=== PATIENT | male | born 1965 | race Hispanic/Latino ===

== ENCOUNTER 2020-05-20 19:13 | Inpatient (IN) | payer OTHER ==
[2020-05-20 20:29] LABS: #Eosinphils 0.1 thou/uL (0.0-0.7); #Lymphocytes 0.7 thou/uL (1.20-3.40); #Monocytes 0.3 thou/uL (0.11-0.59); #Neutrophils 2.5 thou/uL (1.40-6.50); %Basophils 0.2 % (0.0-1.0); %Lymphocytes 20.2 % (21.0-51.0); %Monocytes 7.4 % (0.0-10.0); %Neutrophils 68.2 % (42.0-75.0); Hemoglobin 9.6 g/dL (14.0-18.0); Mean Corpuscular HGB CONC 33.5 g/dL (32.0-36.0); Mean Corpuscular Hemoglobin 32.5 pg (27.0-31.0); Platelet Count 112 thou/uL (130-400); RBC Distribution Width 12.4 % (11.5-14.5); Red Blood Cell (RBC) Count 2.95 mill/uL (4.70-6.10); White Blood Cell (WBC) Count 3.7 thou/uL (4.8-10.8)
[2020-05-20 20:47] LABS: Platelet Morphology Comment Appears Decreased
[2020-05-20 21:03] LABS: ALT (SGPT) 16 U/L (8-55); AST (SGOT) 19 U/L (5-34); Albumin 3.3 g/dL (3.5-5.0); Alcohol Less than 10 mg/dL (Less than 10); Alkaline Phosphatase 75 U/L (40-110); Anion Gap 21 mmol/L (10-20); BUN (Urea Nitrogen) 84 mg/dL (8.4-25.7); Bilirubin, Total 0.6 mg/dL (0.2-1.2); Calc. Creatinine Clearance 0 mL/min (70-130); Calcium 8.4 mg/dL (7.8-10.44); Carbon Dioxide 19 mmol/L (22-29); Chloride 97 mmol/L (98-107); Estimated GFR-MDRD 3; Globulin 3.1 g/dL (2.4-3.5); Glucose 70 mg/dL (70-105); Protein, Total 6.4 g/dL (6.0-8.3); Sodium 130 mmol/L (136-145)
--- NOTE | 2020-05-20 21:18 | RAD ---
PORTABLE CHEST: History: Seizure FINDINGS: Heart size and mediastinum within normal limits. Lungs appear clear of any infiltrative process. No s ignificant bony findings. IMPRESSION: No active intrathoracic disease. POS: OFF
[2020-05-20 21:23] LABS: CKMB 8.3 ng/mL (0-6.6)
[2020-05-20] MEDS ORDERED: Dextrose 50% Abboject 50 ML SYRINGE ONE ×3 (21:23→23:27)
[2020-05-20] MEDS ORDERED: Sodium Bicarb 50 MEQ/50 ML VIAL ONE (21:23)
[2020-05-20] MEDS ORDERED: Calcium Chloride 1 GM/10 ML Abboject SYRINGE ONE (21:23)
--- NOTE | 2020-05-20 21:23 | CT ---
CT OF BRAIN PERFORMED WITHOUT CONTRAST ENHANCEMENT: History: Seizure Comparison: 01-22-2009 FINDINGS: There is generalized ventricular and sulcal prominence. Decreased attenuation of the periventricular white matter is consistent with come chronic white matter change. There are no signs of intracerebral hemorrhage or extraaxial fluid collections. Mastoid air cells and visualized sinuses are clear. IMPRESSION: No acute intracranial abnormalities. POS: OFF
[2020-05-20] MEDS ORDERED: Insulin Regular 300 UNITS/3 ML VIAL ONE (21:47)
[2020-05-20] MEDS ORDERED: Acetaminophen 325 MG TAB PO PRN (22:12)
--- NOTE | 2020-05-20 22:38 | PDOC.EVN ---
Event Note - Event Note Event Note: [id number]
[2020-05-20 23:50] LABS: HBSAg Index 0.14 S/CO (0-0.99); Hep B Surf Ag Non-Reactive S/CO (NonReactive)
[2020-05-21 00:04] LABS: Troponin I 0.057 ng/mL (< 0.028)
[2020-05-21 00:14] VITALS: BMI 26.3
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
[2020-05-21] MEDS ORDERED: hydrALAZINE 20 MG/ML VIAL SLOW IVP SCH (05:15)
[2020-05-21 07:47] LABS: #Eosinphils 0.1 thou/uL (0.0-0.7); #Lymphocytes 0.8 thou/uL (1.20-3.40); #Monocytes 0.5 thou/uL (0.11-0.59); #Neutrophils 2.7 thou/uL (1.40-6.50); %Basophils 0.3 % (0.0-1.0); %Eosinophils 2.8 % (0.0-10.0); %Lymphocytes 18.6 % (21.0-51.0); %Monocytes 11.1 % (0.0-10.0); %Neutrophils 67.2 % (42.0-75.0); Hemoglobin 10.5 g/dL (14.0-18.0); Mean Corpuscular Hemoglobin 32.9 pg (27.0-31.0); Mean Corpuscular Volume 96.8 fL (78.0-98.0); Mean Platelet Volume 6.8 fL (7.4-10.4); Platelet Count 130 thou/uL (130-400); RBC Distribution Width 12.5 % (11.5-14.5); Red Blood Cell (RBC) Count 3.18 mill/uL (4.70-6.10)
[2020-05-21 08:04] LABS: Anion Gap 18 mmol/L (10-20); BUN (Urea Nitrogen) 32 mg/dL (8.4-25.7); Calc. Creatinine Clearance 10 mL/min (70-130); Calcium 8.9 mg/dL (7.8-10.44); Carbon Dioxide 24 mmol/L (22-29); Chloride 100 mmol/L (98-107); Estimated GFR-MDRD 6; Glucose 73 mg/dL (70-105); Potassium 4.8 mmol/L (3.5-5.1); Sodium 137 mmol/L (136-145)
[2020-05-21] MEDS ORDERED: ALPRAZolam 1 MG TAB PO PRN (08:44)
[2020-05-21] MEDS ORDERED: hydrOXYzine 25 MG TAB PO PRN (08:44)
[2020-05-21] MEDS ORDERED: cloNIDine 0.2 MG TAB PO PRN (08:44)
[2020-05-21] MEDS: Carvedilol 25 MG TAB PO SCH ×2 (09:30→21:29)
[2020-05-21] MEDS: Lisinopril 10 MG TAB PO SCH (09:30)
[2020-05-21 11:43] LABS: SARS-CoV-2 MS2 Positive; SARS-CoV-2 N Gene Negative; SARS-CoV-2 S Gene Negative; SARS-CoV-2 by NAA Not Detected (NotDetected); SARS-CoV-2 orf1ab Negative
--- NOTE | 2020-05-21 11:59 | PRG ---
DATE OF SERVICE: 05/21/2020 SUBJECTIVE: A 54-year-old gentleman, being seen for end-stage renal disease. The patient denied nausea, vomiting, or chest pain. PHYSICAL EXAMINATION: GENERAL: The patient is awake and alert. VITAL SIGNS: Afebrile, pulse , breathing at 16, blood pressure 153/91. HEENT: Head normocephalic and atraumatic. Eyes intact, no ulcers. Nose intact, no ulcers. Ears intact, no ulcers. NECK: Supple. No JVD. CHEST: Symmetrical and clear. CARDIOVASCULAR: Shows S1 and S2, no rub, no murmur. GASTROINTESTINAL: Abdomen is soft, bowel sounds positive. EXTREMITIES: Show no edema or ulcers. SKIN: Shows no rash or petechiae. MUSCULOSKELETAL: Shows no joint swelling or stiffness. GENITOURINARY: Shows no [place] or CVA tenderness. NEUROLOGIC: Motor intact. Cranial nerves intact. LABORATORY DATA: Hemoglobin 10.5. ASSESSMENT AND PLAN: 1. Stage 6 chronic kidney disease, stable. 2. Hypertension, stable. 3. Anemia, stable. Medication based on GFR appropriate. Job ID: [id number]
[2020-05-21] MEDS ORDERED: hydrALAZINE 25 MG TAB PO SCH (15:45)
--- NOTE | 2020-05-21 16:03 | PDOC.HOSPP ---
- Subjective Encounter Date: 05/21/20 Encounter Time: 16:02 Subjective: Patient seen for follow-up regarding hypertensive urgency. He denies chest pain or shortness of breath. He reports feeling better. - Objective Vital Signs & Weight: Vital Signs (12 hours) Temp Pulse BP 05/21/20 15:59 171/122 H 05/21/20 15:00 97.0 F L 05/21/20 11:00 97.5 F L 05/21/20 09:30 153/91 H 05/21/20 07:39 97.0 F L 05/21/20 05:45 75 164/105 H Weight Weight 168 lb Most Recent Monitor Data Heart Rate from ECG 71 NIBP 171/122 NIBP BP-Mean 138 Respiration from ECG 10 SpO2 100 Result Diagrams: 05/21/20 07:32 05/21/20 07:32 Additional Labs: Accuchecks 05/21/20 05/21/20 05/21/20 15:39 04:16 03:15 POC Glucose 108 127 H 131 H 05/21/20 05/21/20 05/20/20 02:19 01:16 21:40 POC Glucose 100 44 L* 159 H 05/20/20 19:29 POC Glucose 72 I reviewed patient's labs and MAR EKG Reviewed by me: Yes (Telemetry-NSR) Hospitalist ROS - Review of Systems Cardiovascular: denies: chest pain, palpitations, orthopnea, paroxysmal noc. dyspnea, edema, light headedness Gastrointestinal: denies: nausea, vomiting, abdominal pain, diarrhea, constipation, melena, hematochezia - Medication Medications: Active Medications Generic Name Dose Route Start Last Admin Trade Name Mendoza PRN Reason Stop Dose Admin Acetaminophen 650 mg 05/20/20 22:12 05/21/20 09:37 Tylenol PO 650 mg Q4H PRN Administration Headache/Fever/Mild Pain (1-3) Carvedilol 25 mg 05/21/20 09:00 05/21/20 09:30 Coreg PO 25 mg BID DONTE Administration Hydralazine HCl 50 mg 05/21/20 15:45 05/21/20 15:59 Apresoline PO 05/21/20 17:45 50 mg NOW DONTE Administration Lisinopril 20 mg 05/21/20 09:00 05/21/20 09:30 Zestril PO 20 mg DAILY DONTE Administration - Exam General Appearance: awake alert Eye: anicteric sclera ENT: moist mucosa Neck: supple Heart: RRR Respiratory: CTAB Gastrointestinal: soft, non-tender Extremities: no cyanosis Skin: no rashes Musculoskeletal: no muscle wasting Psychiatric: normal affect, normal behavior Hosp A/P (1) Hypertensive urgency Code(s): I16.0 - HYPERTENSIVE URGENCY Status: Acute (2) End-stage renal disease on hemodialysis Code(s): N18.6 - END STAGE RENAL DISEASE; Z99.2 - DEPENDENCE ON RENAL DIALYSIS Status: Chronic (3) Hyperkalemia Code(s): E87.5 - HYPERKALEMIA Status: Resolved - Plan Patient improved after dialysis yesterday. Potassium is normal today. Humidifier Maintenance Worker plans for repeat dialysis tomorrow. Patient's home medications have been resumed. One-time dose of hydralazine 50 mg p.o. for now, monitor vital signs and titrate antihypertensives as needed. Likely home in 24 to 48 hours.
[2020-05-21] MEDS ORDERED: Amitriptyline HCl 100 MG TAB PO SCH (21:00)
[2020-05-22 07:33] VITALS: BP 158/84; TEMP 98
[2020-05-22] MEDS: Lisinopril 10 MG TAB PO SCH (08:31)
[2020-05-22] MEDS: Carvedilol 25 MG TAB PO SCH (08:31)
--- NOTE | 2020-05-22 11:05 | PRG ---
DATE OF SERVICE: 05/22/2020 SUBJECTIVE: This is a 54-year-old male, being seen for end-stage renal disease. The patient denies any nausea, vomiting, or chest pain. OBJECTIVE: General: The patient is awake and alert. Vital Signs: Afebrile, pulse 58, breathing at 16, blood pressure 131/76. HEENT: Head normocephalic and atraumatic. Eyes intact, no ulcers. Nose intact, no ulcers. Ears intact, no ulcers. Neck: Supple. No JVD. Chest: Symmetrical and clear. Cardiovascular: Shows S1 and S2, no rub, no murmur. Gastrointestinal: Abdomen is soft, bowel sounds positive. Extremities: Show no edema or ulcers. Skin: Shows no rash or petechiae. Musculoskeletal: Shows no joint swelling or stiffness. Genitourinary: Shows no [place] or CVA tenderness. Neurologic: Motor intact. Cranial nerves intact. LABORATORY DATA: Hemoglobin 10.5, creatinine 8.8. ASSESSMENT AND PLAN: 1. Stage 6 chronic kidney disease, plan dialysis, Thursday, Thursday, Thursday. 2. Hypertension, stable. 3. Anemia, stable. 4. Medication based on GFR appropriate. The patient will follow up for dialysis tomorrow. Job ID: [id number]
--- NOTE | 2020-05-22 16:26 | EKG ---
Test Reason : WEAKNESS Blood Pressure : / mmHG Vent. Rate : 068 BPM Atrial Rate : 068 BPM P-R Int : 216 ms QRS Dur : 104 ms QT Int : 432 ms P-R-T Axes : 035 -20 057 degrees QTc Int : 459 ms Sinus rhythm with 1st degree A-V block Otherwise normal ECG Confirmed by BAR WILLIAMSON ([id number]), social media editor JAY COOK ([id number]) on 05/22/2020 4:25:35 PM Referred By: Confirmed By:BAR WILLIAMSON
--- NOTE | 2020-05-23 00:44 | DIS ---
DATE OF ADMISSION: 05/20/2020 DATE OF DISCHARGE: 05/22/2020 PRIMARY CARE PROVIDER: Unknown. DISCHARGE DIAGNOSES: 1. Acute hyperkalemia. 2. End-stage renal disease, on hemodialysis. 3. Hypertensive urgency. 4. Metabolic acidosis. 5. Uremia. CONDITION OF PATIENT ON THE DAY OF DISCHARGE: Stable. I assessed Mr. Carmichael on the day of discharge. He denies any chest pain or shortness of breath. Vital signs are stable. S1 and S2 are heard, regular. Lungs are clear to auscultation bilaterally. HOSPITAL COURSE: Mr. Carmichael is a pleasant 54-year-old gentleman, who was admitted to [facility] on May 20, 2020, for metabolic acidosis and acute severe hyperkalemia. He was seen by Nephrology Service. He underwent urgent hemodialysis. He also had hypertensive urgency and received blood pressure medications to control his blood pressure. He was initially admitted to [facility] and was subsequently transferred to telemetry floor. He has been cleared for discharge. He will have dialysis again as outpatient on May 23, 2020, at [facility] at 6:00 a.m. ACTIVITY: As tolerated. DISCHARGE MEDICATIONS: No change was made to his pre-admission home medications. DIET: Renal and heart-healthy. DISCHARGE DESTINATION: Home. TIME SPENT: Total amount of time spent coordinating this discharge: Thirty-two minutes. Job ID: [id number]
== END 2020-05-22 11:31 | disposition home or self-care (01) | DRG 640 ==
LOC: ERS 19:13 → IMCU/EMU 21:56 → 2NO 05-21 19:57
PROVIDERS: ADMIT Internal Medicine; ATTEND Internal Medicine
PROC: 5A1D70Z Performance of Urinary Filtration, Intermittent, Less than 6 Hours Per Day (ICD-10-PCS; principal; 2020-05-21)
DX: E87.5 Hyperkalemia (principal); N18.6 End stage renal disease; I12.0 Hypertensive chronic kidney disease with stage 5 chronic kidney disease or end stage renal disease; Z20.828 Contact with and (suspected) exposure to other viral communicable diseases; I16.0 Hypertensive urgency; E87.2 Acidosis; E87.1 Hypo-osmolality and hyponatremia; E88.09 Other disorders of plasma-protein metabolism, not elsewhere classified; D63.1 Anemia in chronic kidney disease; E83.52 Hypercalcemia; R42 Dizziness and giddiness; Z99.2 Dependence on renal dialysis; Z90.49 Acquired absence of other specified parts of digestive tract; Z91.041 Radiographic dye allergy status; Z79.899 Other long term (current) drug therapy
CPT/HCPCS: 36415; 36416; 70450; 71045; 80048; 80053; 80307; 82553; 84484; 85025; 87340; 87635; 90935; 93005; 96374; 96375; 96376; G0257; J0360; J1815; U0003

== ENCOUNTER 2020-09-28 18:45 | Observation (INO) | payer OTHER ==
[2020-09-28 19:17] LABS: #Eosinphils 0.1 thou/uL (0.0-0.7); #Lymphocytes 0.6 thou/uL (1.20-3.40); #Monocytes 0.3 thou/uL (0.11-0.59); #Neutrophils 2.4 thou/uL (1.40-6.50); %Basophils 0.6 % (0.0-1.0); %Eosinophils 3.9 % (0.0-10.0); %Lymphocytes 16.8 % (21.0-51.0); %Monocytes 7.5 % (0.0-10.0); %Neutrophils 71.2 % (42.0-75.0); Mean Corpuscular HGB CONC 33.9 g/dL (32.0-36.0); Mean Corpuscular Hemoglobin 33.5 pg (27.0-31.0); Mean Corpuscular Volume 98.9 fL (78.0-98.0); Platelet Count 172 thou/uL (130-400); RBC Distribution Width 14.2 % (11.5-14.5); Red Blood Cell (RBC) Count 2.98 mill/uL (4.70-6.10); White Blood Cell (WBC) Count 3.3 thou/uL (4.8-10.8)
--- NOTE | 2020-09-28 19:20 | CT ---
CT BRAIN WITHOUT CONTRAST: HISTORY:Altered mental status. Patient had dialysis today COMPARISON:05/20/2020 FINDINGS: Changes of cortical atrophy are again seen. There are foci of decreased attenuation in the periventri cular white matter, consistent with chronic small vessel ischemic disease. There is an old lacunar infarction in the right side of the katherin. No evidence of acute infarct, hemorrhage, midline shift or abnormal extra-axial fluid collections is seen. The ventricular size is appropriate and the basilar cisterns are patent. The bony calvarium is intact. The visualized paranasal sinuses and mastoid air cells are well aerated. IMPRESSION: No CT evidence of acute intracranial process.
--- NOTE | 2020-09-28 19:40 | RAD ---
PORTABLE CHEST ONE VIEW: 09/28/20 at 7:16 p.m. HISTORY: Altered mental status. COMPARISON: 05/20/20. FINDINGS: The heart size is normal. The lungs are well expanded without lobar consolidation, pneumothoraces, or pleural effusions. IMPRESSION: No acute process. POS: OFF
[2020-09-28 19:42] LABS: Anion Gap 17 mmol/L (10-20); BUN (Urea Nitrogen) 18 mg/dL (8.4-25.7); Carbon Dioxide 32 mmol/L (22-29); Chloride 96 mmol/L (98-107); Potassium 4.4 mmol/L (3.5-5.1); Sodium 141 mmol/L (136-145)
[2020-09-28 19:43] LABS: ALT (SGPT) 42 U/L (8-55); AST (SGOT) 28 U/L (5-34); Albumin 3.9 g/dL (3.5-5.0); Alkaline Phosphatase 123 U/L (40-110); Bilirubin, Total 0.6 mg/dL (0.2-1.2); Calc. Creatinine Clearance 0 mL/min (70-130); Calcium 9.5 mg/dL (7.8-10.44); Globulin 4.2 g/dL (2.4-3.5); Glucose 126 mg/dL (70-105); Protein, Total 8.1 g/dL (6.0-8.3)
[2020-09-28] MEDS ORDERED: Aspirin 325 MG TAB ONE (20:50)
--- NOTE | 2020-09-28 21:32 | PDOC.HHP ---
Hospitalist HPI - History of Present Illness Generalized weakness History of Present Illness: PCP: Unknown The majority of the H&P was taken from the ER record due to the patient's altered mentation. I unsuccessfully attempted to contact his sister, Ene via telephone. The patient is a 54-year-old male with a documented past medical history of end-stage renal disease (MWF), hypertension and anxiety that presents to the emergency department via EMS for the above complaint. Apparently, the patient attended his scheduled dialysis session this evening, which he completed the entire session. After the drive home from dialysis, the patient had difficulty getting out of the vehicle, primarily his legs seemed weak. He appeared confused and had difficulty speaking. EMS was called. Upon arrival, the patient was found to be hypertensive with a negative stroke scale screen. He was alert and oriented, however, he was slow to respond. The patient was brought to the hospital for further evaluation. ED Course: VITAL SIGNS ThuSep 28, 2020 18:49 YUNG Rawls Rebecca BP: 181/109, Pulse: 97, Resp: 19, Temp: 98.5 (Oral), O2 sat: 95 on (Room Air), Time: 09/28/2020 18:49. VITAL SIGNS ThuSep 28, 2020 18:54 YUNG Rawls Rebecca Pain: 2, Time: 09/28/2020 18:54. Medications: aspirin oral 325 mg Oral Given 21:00 09/28/2020 Hospitalist ROS - Review of Systems All other systems reviewed; all pertinent +/- noted in HPI/Subj - Medication Medications: enalapril maleate tablet : Strength - 20 mg : ORAL Patient Dose: 1 tab(s) Oral once a day. risperiDONE solution : Strength - 1 mg/mL : ORAL Patient Dose: 1 tab(s) Oral once a day. carvedilol tablet : Strength - 25 mg : ORAL Patient Dose: 1 tab(s) Oral 2 times a day. cloNIDine patch weekly : Strength - 0.3 mg/24 hour : TRANSDERMAL Patient Dose: 1 tab(s) Oral As Needed. amitriptyline oral tablet : Strength - 100 mg : ORAL Patient Dose: 1 tab(s) Oral once a day. Allergies: Iodine and Iodide Containing Products, Iodine and Iodide Containing Produc (Unconfirmed) Hospitalist History - Past Medical History Source: RN notes reviewed Cardiac: reports: HTN Renal/: reports: Chronic renal failure (On hemodialysis Thursday) - Past Surgical History Past Surgical History: reports: Cholecystectomy, Other (Left upper extremity fistula) - Family History Family History: reports: Other (Unable to assess due to patient's altered mental status) - Social History Smoking Status: Never smoker Alcohol: reports: None Drugs: reports: none Living Situation: With Family (Patient reports recently moving from [place] to live with a sister in [place]) Occupation: Disability Activity level: uses cane/walker - Exam General Appearance: NAD, awake alert. negative: ill appearing General - other findings: Delayed speech Eye: PERRL, anicteric sclera ENT: normocephalic atraumatic, moist mucosa Neck: supple, no lymphadenopathy, no carotid bruit Heart: RRR, no murmur, no gallops, no rubs, normal peripheral pulses Respiratory: CTAB, no wheezes, no rales, no ronchi, normal chest expansion, no tachypnea Gastrointestinal: soft, non-tender, normal bowel sounds, no guarding, no rigidity Gastrointestinal - other findings: No CVA tenderness Extremities: no cyanosis, no edema Extremities - other findings: Moves all extremities well Skin: no rashes Neurological: cranial nerve grossly intact, no focal deficits Neurological - other findings: Delayed speech, intermittent confusion, GCS E4,V4, M6 Musculoskeletal: normal tone, normal strength Psychiatric: oriented to person, oriented to place, oriented to time, flat affect Hospitalist Results - Labs Result Diagrams: 09/28/20 19:02 09/28/20 19:02 Lab results: WBC 3.3 thou/uL (4.8-10.8) L 09/28/20 19:02 Hgb 10.0 g/dL (14.0-18.0) L 09/28/20 19:02 Hct 29.5 % (42.0-52.0) L 09/28/20 19:02 MCV 98.9 fL (78.0-98.0) H 09/28/20 19:02 Plt Count 172 thou/uL (130-400) 09/28/20 19:02 Neutrophils % 71.2 % (42.0-75.0) 09/28/20 19:02 Sodium 141 mmol/L (136-145) 09/28/20 19:02 Potassium 4.4 mmol/L (3.5-5.1) 09/28/20 19:02 Chloride 96 mmol/L (98-107) L 09/28/20 19:02 Carbon Dioxide 32 mmol/L (22-29) H 09/28/20 19:02 BUN 18 mg/dL (8.4-25.7) 09/28/20 19:02 Creatinine 5.45 mg/dL (0.7-1.3) H 09/28/20 19:02 Glucose 126 mg/dL (70-105) H 09/28/20 19:02 Calcium 9.5 mg/dL (7.8-10.44) 09/28/20 19:02 Total Bilirubin 0.6 mg/dL (0.2-1.2) 09/28/20 19:02 AST 28 U/L (5-34) 09/28/20 19:02 ALT 42 U/L (8-55) 09/28/20 19:02 Alkaline Phosphatase 123 U/L (40-110) H 09/28/20 19:02 Troponin I 0.023 ng/mL (< 0.028) 09/28/20 19:05 Serum Total Protein 8.1 g/dL (6.0-8.3) 09/28/20 19:02 Albumin 3.9 g/dL (3.5-5.0) 09/28/20 19:02 - EKG Interpretation EK lead EKG shows normal sinus rhythm, Rate (beats per minute): 94, with no ectopics, Conduction normal, ST segments normal, QTc 497. - Radiology Interpretation CT scan - head Status: report reviewed by me Additional Comment: IMPRESSION: No CT evidence of acute intracranial process Chest x-ray Additional Comment: IMPRESSION: No acute process Hospitalist H&P A/P - Problem (1) AMS (altered mental status) Code(s): R41.82 - ALTERED MENTAL STATUS, UNSPECIFIED Status: Acute (2) Macrocytic anemia Code(s): D53.9 - NUTRITIONAL ANEMIA, UNSPECIFIED Status: Chronic (3) End stage renal disease on dialysis Code(s): N18.6 - END STAGE RENAL DISEASE; Z99.2 - DEPENDENCE ON RENAL DIALYSIS Status: Chronic (4) Hypertension Code(s): I10 - ESSENTIAL (PRIMARY) HYPERTENSION Status: Chronic - Plan Plan: 54/M with PMH ESRD and HTN presents for altered mental status. Admit to telemetry floor, observation status. Expected length of stay less than 2 midnights. #AMS Unclear etiology. Rule out CVA. A: No focal motor deficit, intermittent confusion (delayed speech) and irritation. MRI brain, carotid ultrasound, echocardiogram. Consult neurology and physical therapy. Continue aspirin, start high intensity statin. Check TSH, FLP, mag, UA, serum DS, UDS, B12/folate Permissive hypertension. Neurochecks. #Macrocytic anemia Presented hemoglobin 10, hematocrit 29.5 Check folate and B12. #End-stage renal disease on dialysis Scheduled Thursday and Thursday. Unknown cytopathologist. #Hypertension Presented hypertensive. Allow permissive hypertension. We will restart home medications when appropriate. SCDs for DVT prophylaxis. No GI prophylaxis. CODE STATUS is full code. Contact is his sister, Ene at [phone]. Discussed the case with attending physician, Dr. James, who agrees with plan of care.
[2020-09-28] MEDS ORDERED: Labetalol HCl 100 MG/20 ML VIAL SLOW IVP PRN (21:50)
[2020-09-28] MEDS ORDERED: hydrALAZINE 20 MG/ML VIAL SLOW IVP PRN (21:50)
[2020-09-28 23:47] VITALS: BMI 23.8
[2020-09-29 03:53] LABS: Bilirubin Negative (Negative); Blood, Urine Negative (Negative); Clarity Turbid (Clear); Glucose, Urine (Dipstick) 50 mg/dL (Negative); Ketone, Urine Negative (Negative); Leukocyte 250 Leu/uL (Negative); Nitrite Negative (Negative); Protein, Urine (Dipstick) 200 mg/dL (Neg-Trace); Specific Gravity, Urine 1.009 (1.002-1.036); Squamous Epithelial 0-3 HPF (0-3); Urobilinogen Normal mg/dL (Less than 2); WBC/HPF 21-50 HPF (0-3); pH, Urine 8.5 (5.0-9.0)
[2020-09-29 03:55] LABS: Bacteria/HPF 1+ HPF (None Seen)
[2020-09-29 04:03] LABS: Amphetamine Not Detected (NotDetected); Barbiturates Screen Not Detected (NotDetected); Benzodiazepine Screen Detected (NotDetected); Cocaine Metabolite Screen Not Detected (NotDetected); Medtox Control Line Valid? VALID (VALID); Medtox Reader # READER 4; Methadone Not Detected (NotDetected); Methamphetamine Not Detected (NotDetected); Opiate Screen Not Detected (NotDetected); Oxycodone Screen Not Detected (NotDetected); Phencyclidine (PCP) Not Detected (NotDetected); THC/Cannabinoid Screen Not Detected (NotDetected); Tricyclic Screen Detected (NotDetected)
[2020-09-29 04:16] LABS: SARS-CoV-2 PCR by NAA Not Detected (NotDetected)
[2020-09-29 06:42] LABS: Cardiac Risk 3.4 (Less than 4.5); Magnesium 1.9 mg/dL (1.6-2.6)
[2020-09-29 06:44] LABS: Acetaminophen Less than 6.0 mcg/mL (10.0-30.0); Alcohol Less than 10 mg/dL (Less than 10); Salicylate Less than 8.0 mg/dL (15.0-30.0)
--- NOTE | 2020-09-29 08:09 | ULT ---
US Carotid Doppler STANDARD History: Cerebrovascular accident Comparison: None. Findings: Real-time grayscale, color and spectral analysis of the extracranial carotid and vertebral arteries was performed. No elevated peak systolic velocities within the internal carotid arteries. Antegrade flow both verteb ral arteries. Impression: No hemodynamically significant stenosis.
[2020-09-29] MEDS: Aspirin 325 mg Enteric Coated Tablet PO SCH (08:21)
[2020-09-29] MEDS ORDERED: Prevnar 13-Val Conj/PF 0.5 ML SYRINGE IM ONE (09:00)
[2020-09-29] MEDS ORDERED: FLU VACC QS2020-21(6MOS UP)/PF 60 MCG/0.5 ML SYRINGE IM ONE (09:00)
--- NOTE | 2020-09-29 09:09 | CON ---
DATE OF CONSULTATION: 09/29/2020 CONSULTING PHYSICIAN: Hospitalist Service. IMPRESSION: Probable focal seizures. PLAN: 1. Keppra 500 mg a day orally. 2. Monitor clinical course. HISTORY OF PRESENT ILLNESS: Mr. Perry is a 54-year-old gentleman with a past history of end-stage renal disease and hypertension. He is currently on dialysis. He finished dialysis yesterday and was noted to have a change in his ability to speak. He was brought to the emergency room for evaluation. His CT of the brain showed a moderate amount of chronic white matter ischemic changes. B12 level was 292, folate was low at 4.0. His urine suggested the possibility of an infection. His COVID screen was negative. He cannot really tell me any details of about how he felt yesterday. PAST MEDICAL HISTORY: Hypertension, end-stage renal disease, anemia. ALLERGIES: IODINE. SOCIAL HISTORY: Unremarkable. MEDICATIONS: Include aspirin, Plavix, and statin. REVIEW OF SYSTEMS: Ten-system review of systems is otherwise unremarkable. PHYSICAL EXAMINATION: GENERAL: He is a well-nourished, middle-aged man, in no acute distress. VITAL SIGNS: Blood pressure 181/109, pulse 97, respirations 14, temperature 98.5. HEENT: Pupils are equal and reactive. Conjunctivae clear. Oropharynx clear. NECK: Supple. No lymphadenopathy. ABDOMEN: Soft and nontender. EXTREMITIES: No cyanosis or edema. SKIN: Clear. NEUROLOGIC: He was alert and cooperative. He would follow commands appropriately. His speech was fluent and without any dysarthria. Cranial nerves appear to be intact. 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 There was intermittent asterixis type weakness present in the upper extremities. Cerebellar showed normal [id number] and rapid alternating movements. He had intermittent right facial twitching that occurred approximately every 10 or 15 seconds. This would seem to ability to speak. Sensation was intact. Plantar responses were downgoing. Gait was not tested. DIAGNOSTIC DATA: EKG shows normal sinus rhythm. Imaging was reviewed. SUMMARY: This is a middle-aged man with fairly extensive white matter disease and what appears to be some focal myoclonic seizure activity that seems lateralized to the right side. I suspected that he might have had a more prolonged event yesterday that cause speech arrest. I have started him on Keppra and see how he responds. Job ID: [id number]
[2020-09-29] MEDS ORDERED: ALPRAZolam 1 MG TAB PO PRN (09:37)
[2020-09-29] MEDS ORDERED: Lorazepam 2 MG/ML VIAL SLOW IVP PRN (09:45)
[2020-09-29] MEDS ORDERED: levETIRAcetam 500 MG TAB PO SCH (09:45)
--- NOTE | 2020-09-29 09:45 | PDOC.HOSPP ---
- Subjective Encounter Date: 09/29/20 Encounter Time: 09:43 Subjective: Patient is a 54yr old man with ESRD who was admitted due to concern for stroke. He has this diffuse twitching body movement that I suspect could be related to extra pyramidal symptoms related to use of Risperidone. He has been seen by Neurology who suspects seizures and started him on Keppra.Will order for an EEG and follow up on MRI. - Objective Vital Signs & Weight: Vital Signs (12 hours) Temp Pulse Resp BP BP Pulse Ox 09/29/20 08:15 98.5 F 80 16 192/80 H 09/29/20 03:20 98.9 F 73 18 190/93 H 96 09/29/20 00:15 98.4 F 70 18 193/98 H 100 09/28/20 22:55 99.1 F 85 18 203/103 H 98 Weight Weight 152 lb 8 oz I&O: 09/28/20 09/29/20 09/30/20 06:59 06:59 06:59 Intake Total 50 Output Total 100 Balance -50 Result Diagrams: 09/28/20 19:02 09/28/20 19:02 Additional Labs: Accuchecks 09/28/20 20:22 POC Glucose 89 Radiology Reviewed by me: Yes EKG Reviewed by me: Yes Hospitalist ROS - Review of Systems Constitutional: reports: weakness, malaise Gastrointestinal: reports: nausea Neurological: reports: weakness - Medication Medications: Active Medications Generic Name Dose Route Start Last Admin Trade Name Freq PRN Reason Stop Dose Admin Aspirin 325 mg 09/29/20 09:00 09/29/20 08:21 Aspirin 325 Mg Enteric Coated Tablet PO 325 mg DAILY DONTE Administration - Exam General Appearance: awake alert, ill appearing Eye: PERRL, anicteric sclera ENT: normocephalic atraumatic, no oropharyngeal lesions Neck: supple, symmetric, no JVD, no thyromegaly, no lymphadenopathy Heart: RRR, no murmur, no gallops, no rubs, normal peripheral pulses Respiratory: CTAB, no wheezes, no rales, no ronchi, normal chest expansion Gastrointestinal: soft, non-tender, non-distended, normal bowel sounds Neurological: cranial nerve grossly intact, normal sensation to touch, no weakness Psychiatric: normal affect, normal behavior, A&O x 3 Hosp A/P (1) Focal seizures Status: Acute Plan: Patient with suspected seizure based on the neurologist evaluation. EEG obtained reportedly has some spikes. He has been started on Keppra renally dosed. We appreciate neurologist for the ongoing help. (2) End-stage renal disease on hemodialysis Code(s): N18.6 - END STAGE RENAL DISEASE; Z99.2 - DEPENDENCE ON RENAL DIALYSIS Status: Chronic Plan: He will continue his dialysis per immigration officer recommendation. (3) UTI (urinary tract infection) Status: Acute Qualifiers: Urinary tract infection type: acute cystitis Plan: Follow-up on urine cultures. IV antibiotics will be started. (4) Acute encephalopathy Code(s): G93.40 - ENCEPHALOPATHY, UNSPECIFIED Status: Acute Plan: Suspect secondary to seizure episodes. He is now on antiepileptic drugs. Follow for clinical improvement. - Plan old records reviewed/req, PT/OT, speech therapy, DVT proph w/heparin
--- NOTE | 2020-09-29 12:43 | MRI ---
MRI Brain WO Con History: Transient ischemic attack Comparison: CT brain prior day Findings: On the diffusion weighted imaging sequence there are no abnormal foci of diffusion restrict ion. This is confirmed on the ADC map. On the susceptibility weighted imaging sequence no abnormal foci of acute hemorrhage. Small focus of hemosiderin staining along the right periventricular white matter. No midline shift. No mass effect. Moderate periventricular and deep white matter microangiopathic john nges. [place] flow voids are maintained. Impression: Moderate chronic microangiopathic changes, somewhat advanced for age. No acute hemorrhage or infarct.
[2020-09-29] MEDS: Sevelamer Carbonate 800 MG TAB PO SCH ×2 (13:14→17:57)
[2020-09-29] MEDS: cloNIDine 0.3 MG TAB PO PRN (17:57)
[2020-09-29] MEDS: Atorvastatin Calcium 40 MG TAB PO SCH (21:12)
[2020-09-29] MEDS: Amitriptyline HCl 100 MG TAB PO SCH (21:13)
[2020-09-29] MEDS: cefTRIAXone\\ROCEPHIN 1 GM in Sodium Chloride 0.9% 100 ML IVPB SCH (21:14)
[2020-09-30] MEDS: cloNIDine 0.3 MG TAB PO PRN ×2 (01:17→22:11)
[2020-09-30 06:57] LABS: #Eosinphils 0.2 thou/uL (0.0-0.7); #Monocytes 0.4 thou/uL (0.11-0.59); #Neutrophils 2.9 thou/uL (1.40-6.50); %Basophils 0.8 % (0.0-1.0); %Eosinophils 4.1 % (0.0-10.0); %Lymphocytes 22.4 % (21.0-51.0); %Monocytes 9.3 % (0.0-10.0); %Neutrophils 63.4 % (42.0-75.0); Hemoglobin 9.8 g/dL (14.0-18.0); Mean Corpuscular HGB CONC 32.9 g/dL (32.0-36.0); Mean Corpuscular Hemoglobin 32.3 pg (27.0-31.0); Mean Platelet Volume 6.9 fL (7.4-10.4); Platelet Count 149 thou/uL (130-400); Red Blood Cell (RBC) Count 3.03 mill/uL (4.70-6.10); White Blood Cell (WBC) Count 4.6 thou/uL (4.8-10.8)
[2020-09-30 07:20] LABS: Anion Gap 17 mmol/L (10-20); BUN (Urea Nitrogen) 45 mg/dL (8.4-25.7); Calc. Creatinine Clearance 9 mL/min (70-130); Calcium 8.7 mg/dL (7.8-10.44); Carbon Dioxide 31 mmol/L (22-29); Chloride 96 mmol/L (98-107); Glucose 67 mg/dL (70-105); Potassium 6.9 mmol/L (3.5-5.1); Sodium 137 mmol/L (136-145)
[2020-09-30] MEDS: Sevelamer Carbonate 800 MG TAB PO SCH ×3 (10:17→16:55)
[2020-09-30 10:49] LABS: HBSAg Index 0.21 S/CO (0-0.99); Hep B Surf Ag Non-Reactive S/CO (NonReactive)
--- NOTE | 2020-09-30 13:32 | PDOC.HOSPP ---
- Subjective Encounter Date: 09/30/20 Encounter Time: 13:30 Subjective: Patient seen and evaluated today. He has no specific complaint. His labs shows serum potassium of 6.9. He is going to get dialyzed today and we have consulted the on-call slate trimmer. He emergently needs to be dialyzed. - Objective Vital Signs & Weight: Vital Signs (12 hours) Temp Pulse Resp BP BP BP Pulse Ox 09/30/20 08:15 97.9 F 80 18 205/10 H 98 09/30/20 06:17 178/64 H 09/30/20 05:45 66 09/30/20 04:20 66 16 193/86 H 98 Weight Weight 152 lb 8 oz I&O: 09/29/20 09/30/20 10/01/20 06:59 06:59 06:59 Intake Total 50 720 Output Total 100 Balance -50 720 Result Diagrams: 09/30/20 06:32 09/30/20 06:32 Radiology Reviewed by me: Yes EKG Reviewed by me: Yes Hospitalist ROS - Review of Systems Constitutional: reports: weakness, malaise Respiratory: reports: shortness of breath, SOB with excertion Gastrointestinal: reports: nausea Neurological: reports: weakness - Medication Medications: Active Medications Generic Name Dose Route Start Last Admin Trade Name Freq PRN Reason Stop Dose Admin Amitriptyline HCl 150 mg 09/29/20 21:00 09/29/20 21:13 Amitriptyline Hcl 100 Mg Tab PO 150 mg HS DONTE Administration Aspirin 325 mg 09/29/20 09:00 09/29/20 08:21 Aspirin 325 Mg Enteric Coated Tablet PO 325 mg DAILY DONTE Administration Atorvastatin Calcium 40 mg 09/29/20 21:00 09/29/20 21:12 Atorvastatin Calcium 40 Mg Tab PO 40 mg HS DONTE Administration Clonidine 0.3 mg 09/29/20 09:37 09/30/20 01:17 Clonidine 0.3 Mg Tab PO 0.3 mg TIDPRN PRN Administration SBP Greater Than 180 Hydralazine HCl 10 mg 09/28/20 21:50 09/30/20 05:45 Hydralazine 20 Mg/Ml Vial SLOW IVP 10 mg Q4H PRN Administration BP > 220/110 Ceftriaxone Sodium 1 gm/ 100 mls @ 200 mls/hr 09/29/20 18:00 09/29/20 21:14 Sodium Chloride IVPB 100 mls Q24HR DONTE Administration Sevelamer Carbonate 3,200 mg 09/29/20 12:00 09/30/20 10:17 Sevelamer Carbonate 800 Mg Tab PO Not Given TID-WM DONTE Sodium Chloride 10 ml 09/28/20 21:50 09/30/20 05:45 Flush - Normal Saline 10 Ml Syringe IVF 10 ml PRN PRN Administration Saline Flush - Exam General Appearance: awake alert, ill appearing Eye: PERRL, anicteric sclera ENT: normocephalic atraumatic, no oropharyngeal lesions Neck: supple, symmetric, no JVD, no thyromegaly Heart: RRR, no murmur, no gallops, no rubs, normal peripheral pulses Respiratory: CTAB, no wheezes, no rales, no ronchi, normal chest expansion Gastrointestinal: soft, non-tender, non-distended, normal bowel sounds, no palpable masses Neurological: cranial nerve grossly intact Psychiatric: normal affect, A&O x 3 Hosp A/P (1) Focal seizures Status: Acute (2) End-stage renal disease on hemodialysis Code(s): N18.6 - END STAGE RENAL DISEASE; Z99.2 - DEPENDENCE ON RENAL DIALYSIS Status: Chronic (3) UTI (urinary tract infection) Status: Acute Qualifiers: Urinary tract infection type: acute cystitis (4) Acute encephalopathy Code(s): G93.40 - ENCEPHALOPATHY, UNSPECIFIED Status: Acute (5) Hyperkalemia Code(s): E87.5 - HYPERKALEMIA Status: Acute Plan: He needs to be emergently dialyzed. We have consulted on-call slate trimmer. - Plan old records reviewed/req, PT/OT
[2020-09-30] MEDS: Clopidogrel Bisulfate 75 MG TAB PO SCH (13:41)
[2020-09-30] MEDS: Aspirin 325 mg Enteric Coated Tablet PO SCH (13:41)
[2020-09-30] MEDS: levETIRAcetam 500 MG TAB PO SCH (13:42)
--- NOTE | 2020-09-30 14:58 | CON ---
DATE OF CONSULTATION: 09/30/2020 Mr. Steele reports that the twitching has resolved since I saw him yesterday. His EEG showed a spike focus on the left. He appears to be tolerating the Keppra well. He is alert and appropriate today. There is no twitching or focal deficits present. I would continue Keppra 500 mg a day. I also follow up with him in the office. Job ID: [id number]
[2020-09-30] MEDS: cefTRIAXone\\ROCEPHIN 1 GM in Sodium Chloride 0.9% 100 ML IVPB SCH (16:55)
[2020-09-30] MEDS ORDERED: HYDROcodone/Acetaminophen 5/325 mg Tablet PO PRN (17:14)
--- NOTE | 2020-09-30 18:02 | CON ---
DATE OF CONSULTATION: REASON FOR CONSULTATION: Hyperkalemia. HISTORY OF PRESENT ILLNESS: This is a very pleasant gentleman, who presented to the hospital with generalized weakness. The patient was noted to have a potassium of 6.9. So, I was consulted. The patient denies any nausea, vomiting, or chest pain at this time. PAST MEDICAL HISTORY: Significant for hypertension, hemodialysis, AV fistula, tunneled dialysis catheter, cholecystectomy. SOCIOECONOMIC HISTORY: No alcohol or drug use. FAMILY HISTORY: Negative for ESRD. ALLERGIES: REVIEWED. HOME MEDICATIONS: List reviewed. HOSPITAL MEDICATIONS: List reviewed. REVIEW OF SYSTEMS: A 15-point review of system was performed, negative except for positives noted above. HEENT: Eyes intact, no diplopia. Ears: No hearing loss or earache. Nose: No discharge or bleeding. Chest: No cough or phlegm. Abdomen: No nausea or vomiting. Genitourinary: No hematuria. No [place] catheter. Musculoskeletal: No low back pain. No joint swelling or pain. Neurological: No syncope. No seizures. Skin: No complaints of rash or itching. Psychiatric: No depression. Constitutional: No weight loss or loss of appetite. PHYSICAL EXAMINATION: General: The patient is awake and alert. Vital Signs: Afebrile, pulse 75, breathing at 16, blood pressure 168/89. HEENT: Head normocephalic and atraumatic. Eyes intact, no ulcers. Nose intact, no ulcers. Ears intact, no ulcers. Neck: Supple. No JVD. Chest: Symmetrical and clear. Cardiovascular: Shows S1 and S2, no rub, no murmur. Gastrointestinal: Abdomen is soft, bowel sounds positive. Extremities: Show no edema or ulcers. Skin: Shows no rash or petechiae. Musculoskeletal: Shows no joint swelling or stiffness. Genitourinary: Shows no [place] or CVA tenderness. Neurologic: Motor intact. Cranial nerves intact. LABORATORY DATA: Reviewed. ASSESSMENT AND PLAN: 1. Stage 6 chronic kidney disease, plan urgent dialysis. 2. Hypertension. We would recommend starting a calcium channel darian. The patient takes clonidine at home and consider adding a beta-darian. The patient is noncompliant with his blood pressure medication as an outpatient. 3. Anemia, stable. 4. Medication based on GFR, appropriate. Job ID: [id number]
[2020-09-30] MEDS: Amitriptyline HCl 100 MG TAB PO SCH (21:28)
[2020-09-30] MEDS: Atorvastatin Calcium 40 MG TAB PO SCH (21:30)
[2020-10-01 07:55] LABS: #Eosinphils 0.2 thou/uL (0.0-0.7); #Lymphocytes 1.2 thou/uL (1.20-3.40); #Monocytes 0.5 thou/uL (0.11-0.59); #Neutrophils 3.1 thou/uL (1.40-6.50); %Basophils 0.2 % (0.0-1.0); %Lymphocytes 24.2 % (21.0-51.0); %Monocytes 9.8 % (0.0-10.0); %Neutrophils 61.8 % (42.0-75.0); Hemoglobin 10.8 g/dL (14.0-18.0); Mean Corpuscular HGB CONC 32.8 g/dL (32.0-36.0); Mean Corpuscular Hemoglobin 32.6 pg (27.0-31.0); Mean Corpuscular Volume 99.4 fL (78.0-98.0); Mean Platelet Volume 6.7 fL (7.4-10.4); Platelet Count 141 thou/uL (130-400); RBC Distribution Width 13.9 % (11.5-14.5); Red Blood Cell (RBC) Count 3.31 mill/uL (4.70-6.10)
[2020-10-01 08:19] LABS: ALT (SGPT) 22 U/L (8-55); AST (SGOT) 13 U/L (5-34); Albumin 3.5 g/dL (3.5-5.0); Alkaline Phosphatase 99 U/L (40-110); Anion Gap 16 mmol/L (10-20); BUN (Urea Nitrogen) 39 mg/dL (8.4-25.7); Bilirubin, Total 0.5 mg/dL (0.2-1.2); Calc. Creatinine Clearance 10 mL/min (70-130); Carbon Dioxide 30 mmol/L (22-29); Chloride 97 mmol/L (98-107); Globulin 3.8 g/dL (2.4-3.5); Glucose 69 mg/dL (70-105); Potassium 6.2 mmol/L (3.5-5.1); Protein, Total 7.3 g/dL (6.0-8.3); Sodium 137 mmol/L (136-145)
[2020-10-01] MEDS: Carvedilol 25 MG TAB PO SCH ×2 (08:50→11:33)
[2020-10-01] MEDS: Sevelamer Carbonate 800 MG TAB PO SCH ×2 (08:50→14:28)
[2020-10-01] MEDS: Aspirin 325 mg Enteric Coated Tablet PO SCH (08:50)
[2020-10-01] MEDS: Clopidogrel Bisulfate 75 MG TAB PO SCH (08:50)
[2020-10-01] MEDS: levETIRAcetam 500 MG TAB PO SCH (08:50)
[2020-10-01] MEDS ORDERED: Amlodipine 10 MG TAB PO SCH (09:00)
--- NOTE | 2020-10-01 13:06 | EEG ---
DATE OF SERVICE: DESCRIPTION OF THE RECORD: The waking background is generally slow with a 5 to 7 hertz state of frequency background. Hyperventilation and photic stimulation were unremarkable. There were episodic phase reversing sharp transients noted in the left hemisphere. No sleep was seen. IMPRESSION: This is an abnormal study for the findings of diffuse slowing and suspicious focal sharp activity seen in the left hemisphere. Job ID: [id number]
--- NOTE | 2020-10-01 16:12 | PDOC.DS.DS ---
Provider - Provider Date of Admission: 09/28/20 21:47 Date of Discharge: 10/01/20 Admitting Provider: Beni James MD Consultations: Nephrology Primary Care Physician: NO PCP PROVIDER Course - Hospital Course Hospital Course: This patient is a 54-year-old man whose medical history includes end-stage renal disease on hemodialysis who was admitted to the hospital after he had appears to be seizure episode. He was brought here by EMS for further evaluation. He was seen by neurology who started him on antiepileptic drug renally dosed. Since being admitted he seems to have stabilized enough. He has not had any further seizure episode. He did receive dialysis during this hospitalization. He is known to be very noncompliant with medical therapy. His blood pressure was significantly elevated and we have made some changes. I saw and evaluated him today and is asking about going home. We will discharge him after dialysis. Please note that he had an EEG done during this visit does show some spikes concerning for seizure activity. He is going to remain on Keppra going forward. - Labs Lab Results: 10/01/20 07:49 10/01/20 07:49 Abnormal Lab Results - Last 48 hrs 09/30/20 06:32: Potassium 6.9 H*, Chloride 96 L, Carbon Dioxide 31 H, BUN 45 H, Creatinine 8.80 H 09/30/20 06:32: WBC 4.6 L, RBC 3.03 L, Hgb 9.8 L, Hct 29.7 L, MCH 32.3 H, MPV 6.9 L, Lymphocytes # 1.0 L 10/01/20 07:49: Potassium 6.2 H, Chloride 97 L, Carbon Dioxide 30 H, BUN 39 H, Creatinine 7.73 H, Globulin 3.8 H, Albumin/Globulin Ratio 0.9 L 10/01/20 07:49: RBC 3.31 L, Hgb 10.8 L, Hct 32.9 L, MCV 99.4 H, MCH 32.6 H, MPV 6.7 L - Physical Exam Vitals: Vital Signs (12 hours) Temp Pulse Pulse Resp BP BP Pulse Ox 10/01/20 11:54 97.9 F 96 20 194/95 H 10/01/20 10:56 119 H 188/116 H 10/01/20 08:50 76 10/01/20 08:18 98.1 F 76 20 182/86 H 97 Weight Weight 152 lb 8 oz Physical Exam: The patient was seen and examined on the day of discharge. Problem - Problem (1) Focal seizures Status: Acute (2) End-stage renal disease on hemodialysis Code(s): N18.6 - END STAGE RENAL DISEASE; Z99.2 - DEPENDENCE ON RENAL DIALYSIS Status: Chronic (3) UTI (urinary tract infection) Status: Acute Qualifiers: Urinary tract infection type: acute cystitis (4) Acute encephalopathy Code(s): G93.40 - ENCEPHALOPATHY, UNSPECIFIED Status: Acute (5) Hyperkalemia Code(s): E87.5 - HYPERKALEMIA Status: Acute - Time spent with Patient (mins): 30 Plan - Discharge Medications Prescriptions: Carvedilol [Coreg] 25 mg PO BID-WM #60 tab levETIRAcetam [Keppra] 500 mg PO DAILY #60 tab Home Medications: Medication Instructions Recorded Confirmed Type ALPRAZolam [Xanax] 0.5 mg PO Q8H PRN 05/21/20 09/29/20 History Amitriptyline HCl [Elavil] 150 mg PO HS 05/21/20 09/29/20 History hydrOXYzine HCl [Hydroxyzine HCl] 50 mg PO Q8H PRN 05/21/20 09/29/20 History ALPRAZolam [Xanax] 2 mg PO TID 09/29/20 09/29/20 History Amlodipine [Norvasc] 5 mg PO DAILY 09/29/20 09/29/20 History hydrOXYzine HCl [Hydroxyzine HCl] 100 mg PO TID 09/29/20 09/29/20 History risperiDONE 2 mg PO HS 09/29/20 09/29/20 History Carvedilol [Coreg] 25 mg PO BID-WM #60 tab 10/01/20 Rx Clopidogrel Bisulfate [Plavix] 75 mg PO DAILY tab 10/01/20 Rx Sevelamer Carbonate [Renvela] 3,200 mg PO TID-WM tab 10/01/20 Rx levETIRAcetam [Keppra] 500 mg PO DAILY #60 tab 10/01/20 Rx Allergies: Iodine and Iodide Containing Produc Allergy (Verified 09/29/20 00:54) PER ER NOTES - Discharge Instructions Activity:: Activity as Tolerated Nourishment:: Renal Diet Therapies:: Not Applicable Equipment/Supplies:: Not Applicable IV Therapy:: Not Applicable - Follow up Plan Referrals: PROVIDER,NO PCP [Primary Care Provider] - Disposition: HOME Quality - Care Measures CORE MEASURES:: N/A
[2020-10-01] MEDS ORDERED: Carvedilol 25 MG TAB PO SCH (17:00)
--- NOTE | 2020-10-01 17:55 | PRG ---
DATE OF SERVICE: 10/01/2020 SUBJECTIVE: Patient was seen and examined at bedside and overnight events noted. Patient denies any shortness of breath or chest pain or palpitation. No history of nausea or vomiting or diarrhea or fever or chills or cramps. OBJECTIVE: GENERAL: This is a well-built male, in no apparent distress. VITAL SIGNS: Temperature 98.1. Heart rate 76. Respiratory rate 20. Blood pressure 182/86. HEENT: Atraumatic, normocephalic. Oral mucosa is moist NECK: Supple. CARDIOVASCULAR: S1, S2 heard. Rate and rhythm regular. RESPIRATORY: Clear to auscultation. GASTROINTESTINAL: Abdomen is soft. MUSCULOSKELETAL: No tenderness. No edema. DERMATOLOGIC: No skin rash. NEUROLOGIC: Alert and awake and oriented X3. No focal neurologic deficits. Moving all the extremities. PSYCHIATRIC: Mood and affect normal. LABORATORY DATA: Potassium 6.2, BUN is 39, creatinine is 7.7. ASSESSMENT AND PLAN: 1. End-stage renal disease. Continue on hemodialysis as tolerated. 2. Edema, controlled. 3. Hypertension. 4. Anemia of chronic disease. 5. Hyperkalemia. We will have dialysis. 6. Alkalosis. Plan is to continue dialysis. We will recheck labs in the morning. Limit potassium intake. Job ID: [id number]
[2020-10-01 18:21] VITALS: BP 165/92; TEMP 98.3
== END 2020-10-01 18:50 | disposition home or self-care (01) ==
LOC: ERS 18:45 → 3SE 21:47
PROVIDERS: ADMIT Internal Medicine; ATTEND Hospitalist
DX: R56.9 Unspecified convulsions (principal); I12.0 Hypertensive chronic kidney disease with stage 5 chronic kidney disease or end stage renal disease; N18.6 End stage renal disease; D63.1 Anemia in chronic kidney disease; N30.00 Acute cystitis without hematuria; G93.40 Encephalopathy, unspecified; E87.5 Hyperkalemia; D53.9 Nutritional anemia, unspecified; F41.9 Anxiety disorder, unspecified; E87.3 Alkalosis; Z91.14 Patient's other noncompliance with medication regimen; Z79.02 Long term (current) use of antithrombotics/antiplatelets; Z79.899 Other long term (current) drug therapy; Z91.041 Radiographic dye allergy status; Z99.2 Dependence on renal dialysis; Z20.822 Contact with and (suspected) exposure to COVID-19
CPT/HCPCS: 36415; 36416; 70450; 70551; 71045; 80048; 80053; 80061; 80306; 80307; 81001; 82607; 82746; 83735; 84443; 84484; 85025; 87340; 87635; 90935; 93005; 93306; 93880; 95816; 95819; 95957; 96365; 96375; G0257; G0378; J0360; J0696; J2060; J3490; U0003; U0005

== ENCOUNTER 2020-10-30 20:18 | Inpatient (IN) | payer OTHER ==
--- NOTE | 2020-10-30 21:04 | RAD ---
Chest one view HISTORY: Altered mental status. COMPARISON: 09/28/2020. FINDINGS: Cardiac silhouette and pulmonary vasculature are unremarkable. Mediastinum is midline. No airspace consolidation or evidence of pneumothorax. Hemostasis clips overlie the gallbladder fossa. Prominent degenerative changes left shoulder. IMPRESSION : No acute abnormalities are demonstrated.
[2020-10-30 21:31] LABS: #Eosinphils 0.2 thou/uL (0.0-0.7); #Lymphocytes 1.1 thou/uL (1.20-3.40); #Monocytes 0.4 thou/uL (0.11-0.59); #Neutrophils 3.2 thou/uL (1.40-6.50); %Basophils 0.4 % (0.0-1.0); %Eosinophils 4.6 % (0.0-10.0); %Lymphocytes 21.8 % (21.0-51.0); %Monocytes 7.2 % (0.0-10.0); %Neutrophils 66.1 % (42.0-75.0); Hemoglobin 11.1 g/dL (14.0-18.0); Mean Corpuscular HGB CONC 34.8 g/dL (32.0-36.0); Mean Corpuscular Hemoglobin 33.4 pg (27.0-31.0); Mean Corpuscular Volume 95.8 fL (78.0-98.0); Platelet Count 123 thou/uL (130-400); RBC Distribution Width 13.8 % (11.5-14.5); Red Blood Cell (RBC) Count 3.33 mill/uL (4.70-6.10); White Blood Cell (WBC) Count 4.8 thou/uL (4.8-10.8)
[2020-10-30 21:41] LABS: Acetaminophen Less than 6.0 mcg/mL (10.0-30.0); Alcohol Less than 10 mg/dL (Less than 10); Lipase 53 U/L (8-78); Salicylate Less than 8.0 mg/dL (15.0-30.0)
[2020-10-30 21:50] LABS: ALT (SGPT) 32 U/L (8-55); AST (SGOT) 27 U/L (5-34); Albumin 3.6 g/dL (3.5-5.0); Alkaline Phosphatase 92 U/L (40-110); Anion Gap 25 mmol/L (10-20); BUN (Urea Nitrogen) 67 mg/dL (8.4-25.7); Bilirubin, Total 0.7 mg/dL (0.2-1.2); Calc. Creatinine Clearance 0 mL/min (70-130); Calcium 8.7 mg/dL (7.8-10.44); Carbon Dioxide 21 mmol/L (22-29); Chloride 96 mmol/L (98-107); Glucose 76 mg/dL (70-105); Potassium 6.4 mmol/L (3.5-5.1); Protein, Total 7.6 g/dL (6.0-8.3); Sodium 136 mmol/L (136-145)
[2020-10-30 22:04] LABS: CKMB 4.3 ng/mL (0-6.6)
[2020-10-30] MEDS ORDERED: Sodium Bicarb 50 MEQ/50 ML Abboject 8.4% SYRINGE ONE (23:51)
[2020-10-30] MEDS ORDERED: Calcium Chloride 1 GM/10 ML Abboject SYRINGE ONE (23:51)
[2020-10-30] MEDS ORDERED: Dextrose 50% Abboject 50 ML SYRINGE ONE (23:51)
[2020-10-30] MEDS ORDERED: Insulin Regular 300 UNITS/3 ML VIAL ONE (23:51)
[2020-10-31 03:29] LABS: HBSAg Index 0.24 S/CO (0-0.99); Hep B Surf Ag Non-Reactive S/CO (NonReactive)
[2020-10-31 04:49] LABS: Troponin I 0.051 ng/mL (< 0.028)
--- NOTE | 2020-10-31 05:09 | PDOC.HHP ---
Hospitalist HPI Altered mental status History of Present Illness: This is a 54-year-old male patient with a history of Hypertension, end-stage renal disease on dialysis was brought in by EMS on account of altered mental status and a fall. Patient's friend activated EMS upon his mental state deteriorating with frequent falls. He denied head injury. Also denied associated chest pain or shortness of breath. On EMS arrival he was hypertensive with blood pressure 204/97, saturation 98% on room air. His glucose was 109. On arrival here he is vitals were BP 198/110, pulse 60, respiratory rate 18 and saturation 99% on room air. His labs showed anemia of 11.1 and chemistry showed hyperkalemia of 6.4 bicarb 21 and creatinine 15.26. BNP was thousand 403 and troponin was 0.049. Given his hyperkalemia nephrology was consulted and emergency dialysis was arranged. At the time of my evaluation patient was in bed not wanting to communicate. Alert but confused however this was prior to dialysis. He has received an amp of bicarb, insulin and dextrose. Also received calcium chloride for hyperkalemia Allergies/Adverse Reactions: Allergy/AdvReac Type Severity Reaction Status Date / Time Iodine and Iodide Containing Allergy Verified 09/29/20 00:54 Produc Home Medications: Medication Instructions Recorded Confirmed Type ALPRAZolam [Xanax] 0.5 mg PO Q8H PRN 05/21/20 09/29/20 History Amitriptyline HCl [Elavil] 150 mg PO HS 05/21/20 09/29/20 History hydrOXYzine HCl [Hydroxyzine HCl] 50 mg PO Q8H PRN 05/21/20 09/29/20 History ALPRAZolam [Xanax] 2 mg PO TID 09/29/20 09/29/20 History Amlodipine [Norvasc] 5 mg PO DAILY 09/29/20 09/29/20 History hydrOXYzine HCl [Hydroxyzine HCl] 100 mg PO TID 09/29/20 09/29/20 History risperiDONE 2 mg PO HS 09/29/20 09/29/20 History Carvedilol [Coreg] 25 mg PO BID-WM #60 tab 10/01/20 Rx Clopidogrel Bisulfate [Plavix] 75 mg PO DAILY tab 10/01/20 Rx Sevelamer Carbonate [Renvela] 3,200 mg PO TID-WM tab 10/01/20 Rx levETIRAcetam [Keppra] 500 mg PO DAILY #60 tab 10/01/20 Rx Past History: PMHx:Hypertension, ESRD, syncope PSHx: Cholecystectomy, left arm fistula, FHx: None of significance, Social: Denies drug alcohol or tobacco use. Hospitalist HPI ROS ROS unobtainable: due to mental status Hospitalist Exam General - other findings: Awake however generally confused Eye: anicteric sclera ENT: normocephalic atraumatic Respiratory: CTAB, no wheezes, no rales, no ronchi Gastrointestinal: soft, non-tender, non-distended, normal bowel sounds Extremities: no cyanosis, no clubbing, no edema Neurological: cranial nerve grossly intact, no weakness, no focal deficits Psychiatric: oriented to person, lethargic Hospitalist Results Result Diagrams: 10/30/20 21:12 10/30/20 21:12 Lab results: Laboratory Last Values WBC 4.8 thou/uL (4.8-10.8) 10/30/20 21:12 RBC 3.33 mill/uL (4.70-6.10) L 10/30/20 21:12 Hgb 11.1 g/dL (14.0-18.0) L 10/30/20 21:12 Hct 31.9 % (42.0-52.0) L 10/30/20 21:12 MCV 95.8 fL (78.0-98.0) 10/30/20 21:12 MCH 33.4 pg (27.0-31.0) H 10/30/20 21:12 MCHC 34.8 g/dL (32.0-36.0) 10/30/20 21:12 RDW 13.8 % (11.5-14.5) 10/30/20 21:12 Plt Count 123 thou/uL (130-400) L 10/30/20 21:12 MPV 8.0 fL (7.4-10.4) 10/30/20 21:12 Neutrophils % 66.1 % (42.0-75.0) 10/30/20 21:12 Lymphocytes % 21.8 % (21.0-51.0) 10/30/20 21:12 Monocytes % 7.2 % (0.0-10.0) 10/30/20 21:12 Eosinophils % 4.6 % (0.0-10.0) 10/30/20 21:12 Basophils % 0.4 % (0.0-1.0) 10/30/20 21:12 Neutrophils # 3.2 thou/uL (1.40-6.50) 10/30/20 21:12 Lymphocytes # 1.1 thou/uL (1.20-3.40) L 10/30/20 21:12 Monocytes # 0.4 thou/uL (0.11-0.59) 10/30/20 21:12 Eosinophils # 0.2 thou/uL (0.0-0.7) 10/30/20 21:12 Basophils # 0.0 thou/uL (0.0-0.2) 10/30/20 21:12 Sodium 136 mmol/L (136-145) 10/30/20 21:12 Potassium 6.4 mmol/L (3.5-5.1) H 10/30/20 21:12 Chloride 96 mmol/L (98-107) L 10/30/20 21:12 Carbon Dioxide 21 mmol/L (22-29) L 10/30/20 21:12 Anion Gap 25 mmol/L (10-20) H 10/30/20 21:12 BUN 67 mg/dL (8.4-25.7) H 10/30/20 21:12 Creatinine 15.26 mg/dL (0.7-1.3) H 10/30/20 21:12 Estimated GFR (MDRD) 3 10/30/20 21:12 Glucose 76 mg/dL (70-105) 10/30/20 21:12 POC Glucose 62 mg/dL (70-100) L 10/30/20 23:29 Lactic Acid 0.8 mmol/L (0.5-2.2) 10/30/20 21:12 Calcium 8.7 mg/dL (7.8-10.44) 10/30/20 21:12 Total Bilirubin 0.7 mg/dL (0.2-1.2) 10/30/20 21:12 AST 27 U/L (5-34) 10/30/20 21:12 ALT 32 U/L (8-55) 10/30/20 21:12 Alkaline Phosphatase 92 U/L (40-110) 10/30/20 21:12 CK-MB (CK-2) 4.3 ng/mL (0-6.6) 10/30/20 21:12 Troponin I 0.051 ng/mL (< 0.028) H 10/31/20 04:16 B-Natriuretic Peptide 1403.7 pg/mL (0-100) H 10/30/20 21:12 Serum Total Protein 7.6 g/dL (6.0-8.3) 10/30/20 21:12 Albumin 3.6 g/dL (3.5-5.0) 10/30/20 21:12 Globulin 4.0 g/dL (2.4-3.5) H 10/30/20 21:12 Albumin/Globulin Ratio 0.9 g/dL (1.2-2.2) L 10/30/20 21:12 Lipase 53 U/L (8-78) 10/30/20 21:12 Salicylates Less than 8.0 mg/dL (15.0-30.0) L 10/30/20 21:12 Acetaminophen Less than 6.0 mcg/mL (10.0-30.0) L 10/30/20 21:12 Plasma Alcohol Less than 10 mg/dL (Less than 10) 10/30/20 21:12 Hep Bs Antigen Non-Reactive S/CO (NonReactive) 10/31/20 02:17 Hospitalist H&P A/P Plan: This is a 54-year-old male patient with a history of hypertension ESRD on dialysis who presents with altered mental status and hyperkalemia. Acute encephalopathy Likely secondary to JEFFREY hyperkalemia uremia Nephrology consulted Hyperkalemia Also appreciate nephrology inputpatient going for dialysis. Monitor BMP Anemia Likely due to ESRD Monitor H&H Elevated troponin Troponin 0 0.049 likely secondary to ESRD We will monitor. Possible heart failure BNP increased at 1203 Going for dialysiswe will observe. Falls PT evaluation in morning. CODE STATUSto be discussed VT prophylaxis Heparin
[2020-10-31 07:35] LABS: Troponin I 0.039 ng/mL (< 0.028)
--- NOTE | 2020-10-31 07:52 | CT ---
Exam: Head CT without contrast HISTORY: Altered mental status. Frequent falls. COMPARISON: 09/28/2020 FINDINGS: Hemorrhage: No intraparenchymal hemorrhage or extra-axial hematoma. Brain parenchyma: Cortical barrientos-white matter differentiation is preserved. No mass effect or midline shift. Basilar cisterns are patent.Hypodensities due to chronic small vessel ischemic change. Remote lacunar infarct involving the brainstem Ventricular system: Ventricles and sulci are patent and symmetric. Calvarium: Intact. Sinuses and mastoid air cells: Adequate aeration. IMPRESSION: 1. This report is in agreement with initial report by direct radiology. No acute intracranial process .
[2020-10-31] MEDS ORDERED: Acetaminophen 325 MG TAB PO PRN (10:22)
[2020-10-31] MEDS ORDERED: Senokot S 8.6-50 MG TAB PO PRN (10:22)
[2020-10-31] MEDS ORDERED: Calcium Carbonate 500 MG ChewTAB PO PRN (10:22)
[2020-10-31 10:44] LABS: #Eosinphils 0.1 thou/uL (0.0-0.7); #Lymphocytes 0.8 thou/uL (1.20-3.40); #Monocytes 0.3 thou/uL (0.11-0.59); #Neutrophils 6.2 thou/uL (1.40-6.50); %Basophils 0.1 % (0.0-1.0); %Eosinophils 1.4 % (0.0-10.0); %Lymphocytes 11.2 % (21.0-51.0); %Neutrophils 83.2 % (42.0-75.0); Hemoglobin 12.2 g/dL (14.0-18.0); Mean Corpuscular HGB CONC 33.8 g/dL (32.0-36.0); Mean Corpuscular Hemoglobin 32.1 pg (27.0-31.0); Mean Platelet Volume 7.4 fL (7.4-10.4); Platelet Count 167 thou/uL (130-400); RBC Distribution Width 13.7 % (11.5-14.5); Red Blood Cell (RBC) Count 3.79 mill/uL (4.70-6.10); White Blood Cell (WBC) Count 7.5 thou/uL (4.8-10.8)
[2020-10-31 11:04] LABS: Anion Gap 20 mmol/L (10-20); BUN (Urea Nitrogen) 29 mg/dL (8.4-25.7); Calc. Creatinine Clearance 0 mL/min (70-130); Calcium 9.8 mg/dL (7.8-10.44); Carbon Dioxide 28 mmol/L (22-29); Chloride 96 mmol/L (98-107); Glucose 102 mg/dL (70-105); Potassium 4.3 mmol/L (3.5-5.1); Sodium 140 mmol/L (136-145)
[2020-10-31] MEDS: Heparin 5,000 UNITS/ML VIAL SC SCH ×3 (13:27→21:14)
[2020-10-31] MEDS ORDERED: hydrALAZINE 20 MG/ML VIAL SLOW IVP PRN (14:58)
[2020-10-31] MEDS ORDERED: Amlodipine 5 MG TAB PO SCH (15:00)
[2020-10-31] MEDS ORDERED: Carvedilol 25 MG TAB PO SCH (15:00)
--- NOTE | 2020-10-31 16:21 | CON ---
DATE OF CONSULTATION: 10/31/2020 CONSULTING PHYSICIAN: Dr. Magallon. REASON FOR CONSULT: End-stage renal disease evaluation and care and hyperkalemia. REASON FOR ADMISSION: Altered mentation. HISTORY OF PRESENT ILLNESS: This is a 54-year-old male with history of hypertension, end-stage renal disease, and syncope, came to the hospital with altered mentation, was found to have hyperkalemia and acidosis. Nephrology consulted for emergent dialysis. The patient had dialysis and is feeling better. No fever or chills. No nausea or vomiting. No chest pain. PAST MEDICAL HISTORY: Positive for end-stage renal disease, on hemodialysis; hypertension; syncope. PAST SURGICAL HISTORY: Cholecystectomy, left arm fistula. HOME MEDICATIONS: Reviewed. ALLERGIES: IODINE. SOCIAL HISTORY: No smoking, alcohol, or illicit drugs. FAMILY HISTORY: No history of kidney disease. REVIEW OF SYSTEMS: CONSTITUTIONAL: Negative for weight loss or gain, ability to conduct usual activities. SKIN: Negative for rash, itching. EYES: Negative for double vision, pain. ENT/MOUTH: Negative for nose bleeding, neck stiffness, pain, tenderness. CARDIOVASCULAR: Negative for palpitations, dyspnea on exertion, orthopnea. RESPIRATORY: Negative for shortness of breath, wheezing, cough, hemoptysis, fever or night sweats. GASTROINTESTINAL: Negative for poor appetite, abdominal pain, heartburn, nausea, vomiting, constipation, or diarrhea. GENITOURINARY: Negative for urgency, frequency, dysuria, nocturia. MUSCULOSKELETAL: Negative for pain, swelling. NEUROLOGIC/PSYCHIATRIC: Negative for anxiety, depression. ALLERGY/IMMUNOLOGIC: Negative for skin rash, bleeding tendency. PHYSICAL EXAMINATION: GENERAL: This is a well-built male, in no apparent distress. VITAL SIGNS: Temperature 98.2, pulse 71, respiratory rate 16, blood pressure 139/94. HEENT: Atraumatic, normocephalic. Oral mucosa moist. NECK: Supple. CV: S1 and S2 heard. Rate and rhythm, regular. RESPIRATORY: Clear. GI: Abdomen is soft. MUSCULOSKELETAL: 1+ edema. DERMATOLOGIC: No skin rash. NEUROLOGIC: Alert and awake. PSYCHIATRIC: Normal mood and affect. LABORATORY DATA: Hemoglobin is 12.2. Potassium 4.3, BUN is 29, creatinine is 8.4. ASSESSMENT AND PLAN: 1. End-stage renal disease, had dialysis, and potassium down to 4.3 from 6.4. 2. Edema, controlled. 3. Hypertension. 4. Acidosis, better. 5. Anemia of chronic disease. The patient had emergent dialysis and potassium level is better. Plan is to continue to monitor and continue dialysis as tolerated. The patient was advised to have dietary restrictions. Job ID: [id number]
[2020-10-31] MEDS ORDERED: cloNIDine 0.1 MG TAB PO PRN (17:19)
[2020-10-31] MEDS ORDERED: Clopidogrel Bisulfate 75 MG TAB PO SCH (17:30)
[2020-10-31] MEDS ORDERED: Famotidine 20 MG TAB PO SCH (21:00)
[2020-11-01 05:24] LABS: #Eosinphils 0.1 thou/uL (0.0-0.7); #Lymphocytes 1.5 thou/uL (1.20-3.40); #Monocytes 0.5 thou/uL (0.11-0.59); #Neutrophils 2.9 thou/uL (1.40-6.50); %Basophils 0.8 % (0.0-1.0); %Eosinophils 2.9 % (0.0-10.0); %Lymphocytes 29.1 % (21.0-51.0); %Monocytes 10.3 % (0.0-10.0); %Neutrophils 56.9 % (42.0-75.0); Hemoglobin 10.8 g/dL (14.0-18.0); Mean Corpuscular HGB CONC 33.4 g/dL (32.0-36.0); Mean Corpuscular Hemoglobin 32.2 pg (27.0-31.0); Mean Corpuscular Volume 96.5 fL (78.0-98.0); Mean Platelet Volume 7.4 fL (7.4-10.4); Platelet Count 144 thou/uL (130-400); RBC Distribution Width 13.7 % (11.5-14.5); Red Blood Cell (RBC) Count 3.35 mill/uL (4.70-6.10); White Blood Cell (WBC) Count 5.2 thou/uL (4.8-10.8)
[2020-11-01 05:35] LABS: Anion Gap 22 mmol/L (10-20); BUN (Urea Nitrogen) 40 mg/dL (8.4-25.7); Calc. Creatinine Clearance 8 mL/min (70-130); Calcium 9.3 mg/dL (7.8-10.44); Carbon Dioxide 24 mmol/L (22-29); Chloride 99 mmol/L (98-107); Glucose 66 mg/dL (70-105); Potassium 4.9 mmol/L (3.5-5.1); Sodium 140 mmol/L (136-145)
[2020-11-01] MEDS: Aspirin 81 mg Enteric Coated Tablet PO SCH (08:13)
[2020-11-01] MEDS: Amlodipine 5 MG TAB PO SCH (08:13)
[2020-11-01] MEDS: Clopidogrel Bisulfate 75 MG TAB PO SCH (08:14)
[2020-11-01] MEDS: Sevelamer Carbonate 800 MG TAB PO SCH ×3 (08:14→19:24)
[2020-11-01] MEDS: Carvedilol 25 MG TAB PO SCH ×2 (08:14→19:24)
[2020-11-01] MEDS: Heparin 5,000 UNITS/ML VIAL SC SCH (08:14)
[2020-11-01] MEDS: levETIRAcetam 500 MG TAB PO SCH (08:14)
[2020-11-01] MEDS: hydrALAZINE 25 MG TAB PO PRN (13:28)
[2020-11-01 16:52] LABS: SARS-CoV-2 PCR by NAA Not Detected (NotDetected)
--- NOTE | 2020-11-01 17:56 | PDOC.DS.DS ---
Provider Date of Admission: 10/31/20 03:39 Date of Discharge: 11/01/20 Admitting Provider: Maximus Magallon MD Consultations: Nephrology Primary Care Physician: NO PCP PROVIDER Course Resuscitation Status: 10/31/20 10:22 Resuscitation Status Routine Resuscitation Status: FULL: Full Resuscitation Lab Results: 11/01/20 04:55 11/01/20 04:55 Abnormal Lab Results - Last 48 hrs 10/30/20 21:12: Potassium 6.4 H, Chloride 96 L, Carbon Dioxide 21 L, Anion Gap 25 H, BUN 67 H, Creatinine 15.26 H, Globulin 4.0 H, Albumin/Globulin Ratio 0.9 L 10/30/20 21:12: Salicylates Less than 8.0 L, Acetaminophen Less than 6.0 L 10/30/20 21:12: B-Natriuretic Peptide 1403.7 H 10/30/20 21:12: Troponin I 0.049 H 10/30/20 21:12: RBC 3.33 L, Hgb 11.1 L, Hct 31.9 L, MCH 33.4 H, Plt Count 123 L, Lymphocytes # 1.1 L 10/31/20 04:16: Troponin I 0.051 H 10/31/20 06:51: Troponin I 0.039 H 10/31/20 10:33: Chloride 96 L, BUN 29 H, Creatinine 8.41 H 10/31/20 10:33: RBC 3.79 L, Hgb 12.2 L, Hct 36.0 L, MCH 32.1 H, Neutrophils % 83.2 H, Lymphocytes % 11.2 L, Lymphocytes # 0.8 L 11/01/20 04:55: Anion Gap 22 H, BUN 40 H, Creatinine 10.61 H 11/01/20 04:55: RBC 3.35 L, Hgb 10.8 L, Hct 32.3 L, MCH 32.2 H, Monocytes % 10.3 H Microbiology - Entire Visit 10/30/20 21:11 Venous blood - Right Hand Blood Culture - Preliminary Specimen has been received and culture in progress. No Growth to date. 10/30/20 21:12 Venous blood - Right Arm Blood Culture - Preliminary Specimen has been received and culture in progress. No Growth to date. Vitals: Vital Signs (12 hours) Temp Pulse Resp BP Pulse Ox 11/01/20 12:34 97.7 F 73 20 180/95 H 98 11/01/20 08:00 97.5 F L 74 20 181/100 H 97 Weight Weight 155 lb 1.6 oz Physical Exam: The patient was seen and examined on the day of discharge. Plan Home Medications: Medication Instructions Recorded Confirmed Type Amitriptyline HCl [Elavil] 150 mg PO HS 05/21/20 10/31/20 History ALPRAZolam [Xanax] 2 mg PO TID PRN 09/29/20 10/31/20 History risperiDONE 2 mg PO HS 09/29/20 10/31/20 History Carvedilol [Coreg] 25 mg PO BID-WM #60 tab 10/01/20 10/31/20 Rx Clopidogrel Bisulfate [Plavix] 75 mg PO DAILY tab 10/01/20 10/31/20 Rx Sevelamer Carbonate [Renvela] 3,200 mg PO TID-WM tab 10/01/20 10/31/20 Rx levETIRAcetam [Keppra] 500 mg PO DAILY #60 tab 10/01/20 10/31/20 Rx Aspirin [Ecotrin Low Strength] 81 mg PO DAILY 10/31/20 10/31/20 History cloNIDine [Catapres] 1 tab PO BID PRN 10/31/20 10/31/20 History hydrOXYzine Pamoate 100 mg PO TID PRN 10/31/20 10/31/20 History Allergies: Iodine and Iodide Containing Produc Allergy (Verified 10/31/20 14:58) Referrals: Clarence De La Torre MD [Active] - 7 Days Disposition: HOME Quality CORE MEASURES:: N/A
[2020-11-01] MEDS ORDERED: Famotidine 20 MG TAB PO SCH (21:00)
[2020-11-02] MEDS: hydrALAZINE 25 MG TAB PO PRN (00:13)
[2020-11-02 04:38] VITALS: TEMP 98.3
--- NOTE | 2020-11-02 06:12 | PRG ---
DATE OF SERVICE: 11/01/2020 SUBJECTIVE: Patient was seen and examined at bedside and overnight events noted. Patient denies any shortness of breath or chest pain or palpitation. No history of nausea or vomiting or diarrhea or fever or chills or cramps. OBJECTIVE: General: This is a well-built male, in no acute distress. Vital Signs: Temperature 97.7. Heart Rate 73. Respiratory rate 20. Blood pressure 180/95. HEENT: Atraumatic, normocephalic. Oral mucosa is moist. Neck: Supple. Cardiovascular: S1, S2 heard. Rate and rhythm regular. Respiratory: Clear to auscultation. Gastrointestinal: Abdomen is soft. Musculoskeletal: No tenderness. No edema. Dermatologic: No skin rash. Neurologic: Alert and awake and oriented x3. No focal neurologic deficits. Moving all the extremities. Psychiatric: Mood and affect normal. LABORATORY DATA: Potassium 4.9, BUN is 40, creatinine is 10.61. ASSESSMENT AND PLAN: 1. End-stage renal disease. Continue on dialysis as tolerated. Plan to have 2 hours of dialysis today and then to continue dialysis on Thursday, Thursday and Thursday schedule. 2. . 3. Hypertension. 4. Anemia of chronic disease. Plan to have 2 hours of dialysis today, then continue dialysis on Thursday, Thursday, and Thursday. The patient is agreeable and dialysis nurse notified. Plan also discussed with Dr. Deluca and the bedside nurse. Job ID: [id number]
[2020-11-02 07:28] VITALS: BMI 24.3
[2020-11-02] MEDS: Amlodipine 5 MG TAB PO SCH (08:23)
[2020-11-02] MEDS: Clopidogrel Bisulfate 75 MG TAB PO SCH (08:23)
[2020-11-02] MEDS: levETIRAcetam 500 MG TAB PO SCH (08:23)
[2020-11-02] MEDS: Carvedilol 25 MG TAB PO SCH (08:23)
[2020-11-02] MEDS: Sevelamer Carbonate 800 MG TAB PO SCH (08:23)
[2020-11-02] MEDS: Aspirin 81 mg Enteric Coated Tablet PO SCH (08:23)
[2020-11-02 08:39] VITALS: BP 191/107
--- NOTE | 2020-11-02 10:32 | PDOC.HOSPP ---
- Subjective Encounter Date: 11/01/20 Encounter Time: 09:30 Subjective: Patient seen and examined for encephalopathy which is resolved. Denies any new complaints. No headache, double vision or blurring of vision. Underwent hemodialysis yesterday - Objective Vital Signs & Weight: Vital Signs (12 hours) Temp Pulse Resp BP Pulse Ox 11/02/20 08:23 96 11/02/20 08:00 98.3 F 94 16 191/107 H 100 11/02/20 04:00 98.3 F 96 18 141/98 H 98 11/01/20 23:57 98.4 F 81 17 174/101 H 96 Weight Admit Weight 155 lb Weight 155 lb I&O: 11/01/20 11/02/20 11/03/20 06:59 06:59 06:59 Intake Total 770 1027 Balance 770 1027 Result Diagrams: 11/01/20 04:55 11/01/20 04:55 Additional Labs: Abnormal Lab Results - Last 48 hrs 10/31/20 10:33: Chloride 96 L, BUN 29 H, Creatinine 8.41 H 10/31/20 10:33: RBC 3.79 L, Hgb 12.2 L, Hct 36.0 L, MCH 32.1 H, Neutrophils % 83.2 H, Lymphocytes % 11.2 L, Lymphocytes # 0.8 L 11/01/20 04:55: Anion Gap 22 H, BUN 40 H, Creatinine 10.61 H 11/01/20 04:55: RBC 3.35 L, Hgb 10.8 L, Hct 32.3 L, MCH 32.2 H, Monocytes % 10.3 H Microbiology - Entire Visit 10/30/20 21:11 Venous blood - Right Hand Blood Culture - Preliminary Specimen has been received and culture in progress. No Growth to date. 10/30/20 21:12 Venous blood - Right Arm Blood Culture - Preliminary Specimen has been received and culture in progress. No Growth to date. Radiology Reviewed by me: Yes (Chest x-rayno infiltrate) EKG Reviewed by me: Yes (Sinus rhythm on telemetry) Hospitalist ROS - Review of Systems Cardiovascular: denies: chest pain, palpitations, orthopnea, paroxysmal noc. dyspnea, edema, light headedness, other Gastrointestinal: denies: nausea, vomiting, abdominal pain, diarrhea, constipation, melena, hematochezia, other Hospitalist Exam Vitals: Vital Signs (12 hours) Temp Pulse Resp BP Pulse Ox 11/02/20 08:23 96 11/02/20 08:00 98.3 F 94 16 191/107 H 100 11/02/20 04:00 98.3 F 96 18 141/98 H 98 11/01/20 23:57 98.4 F 81 17 174/101 H 96 Weight Admit Weight 155 lb Weight 155 lb General Appearance: awake alert Neck: supple, no JVD Heart: RRR, no gallops, no rubs, normal peripheral pulses Respiratory: no wheezes, no rales, no ronchi, normal chest expansion Gastrointestinal: soft, non-distended, no guarding, no rigidity Extremities: no cyanosis Neurological: normal sensation to touch, no weakness, no focal deficits Musculoskeletal: normal tone, normal strength Psychiatric: normal affect, A&O x 3 Hosp A/P - Plan DVT proph w/SCDs Toxic metabolic encephalopathy due to missed hemodialysis/uremia Hyperkalemia due to above End-stage renal disease on hemodialysis Hypertension Anxiety Questionable seizure disorder Plan: Case discussed with nephrology who recommended short course of hemodialysis prior to discharge. Will continue his home medications including carvedilol and Keppra. Patient ambulated with physical therapy in the hallway. His mentation is at baseline. Update @ 6 PM Patient underwent short hemodialysis and is ready to be discharged. However he does not have a ride till tomorrow. He is scheduled for his usual hemodialysis session tomorrow evening. The dialysis center will be open tomorrowthis was confirmed by his primary research and insights executive. Discharge was held per patient request due to weather conditions.
--- NOTE | 2020-11-03 15:55 | EKG ---
Test Reason : Blood Pressure : / mmHG Vent. Rate : 058 BPM Atrial Rate : 058 BPM P-R Int : 206 ms QRS Dur : 110 ms QT Int : 494 ms P-R-T Axes : 101 187 098 degrees QTc Int : 484 ms Suspect arm lead reversal, interpretation assumes no reversal Sinus bradycardia Right superior axis deviation Prolonged QT Abnormal ECG Confirmed by BAR WILLIAMSON ([id number]), index editor SHIREEN RUDD ([id number]) on 11/03/2020 3:55:18 PM Referred By: Confirmed By:BAR WILLIAMSON
== END 2020-11-02 09:37 | disposition home or self-care (01) | DRG 682 ==
LOC: ERS 20:18 → ERHOLD 10-31 03:39 → 3SE 10-31 13:22
PROVIDERS: ADMIT Student in an Organized Health Care Education/Training Program; ATTEND Internal Medicine
PROC: 5A1D70Z Performance of Urinary Filtration, Intermittent, Less than 6 Hours Per Day (ICD-10-PCS; principal; 2020-10-31)
DX: N17.9 Acute kidney failure, unspecified (principal); G92 Toxic encephalopathy; I12.0 Hypertensive chronic kidney disease with stage 5 chronic kidney disease or end stage renal disease; E87.2 Acidosis; Z20.822 Contact with and (suspected) exposure to COVID-19; N18.6 End stage renal disease; E87.6 Hypokalemia; D63.1 Anemia in chronic kidney disease; F41.9 Anxiety disorder, unspecified; Z90.49 Acquired absence of other specified parts of digestive tract; Z99.2 Dependence on renal dialysis
CPT/HCPCS: 36415; 36416; 70450; 71045; 80048; 80053; 80177; 80307; 82553; 83605; 83690; 83880; 84484; 85025; 87040; 87340; 87635; 90935; 93005; 96365; 96375; G0257; J1644; J1815; U0003; U0005

== ENCOUNTER 2021-01-08 03:33 | Emergency (ER) | payer OTHER ==
[2021-01-08] MEDS ORDERED: Aspirin Chewable 81 MG TAB ONE (03:45)
[2021-01-08] MEDS ORDERED: Acetaminophen 500 MG TAB ONE (03:49)
[2021-01-08 04:36] LABS: #Eosinphils 0.2 thou/uL (0.0-0.7); #Monocytes 0.4 thou/uL (0.11-0.59); %Basophils 0.8 % (0.0-1.0); %Eosinophils 3.3 % (0.0-10.0); %Lymphocytes 17.9 % (21.0-51.0); %Monocytes 6.5 % (0.0-10.0); %Neutrophils 71.6 % (42.0-75.0); Hemoglobin 9.3 g/dL (14.0-18.0); Mean Corpuscular Hemoglobin 32.1 pg (27.0-31.0); Mean Corpuscular Volume 97.4 fL (78.0-98.0); Mean Platelet Volume 7.3 fL (7.4-10.4); Platelet Count 136 thou/uL (130-400); RBC Distribution Width 14.4 % (11.5-14.5); Red Blood Cell (RBC) Count 2.89 mill/uL (4.70-6.10); White Blood Cell (WBC) Count 5.7 thou/uL (4.8-10.8)
[2021-01-08 04:55] LABS: ALT (SGPT) 13 U/L (8-55); AST (SGOT) 19 U/L (5-34); Albumin 3.3 g/dL (3.5-5.0); Alkaline Phosphatase 77 U/L (40-110); Anion Gap 18 mmol/L (10-20); BUN (Urea Nitrogen) 69 mg/dL (8.4-25.7); Bilirubin, Total 0.7 mg/dL (0.2-1.2); Calc. Creatinine Clearance 0 mL/min (70-130); Calcium 8.7 mg/dL (7.8-10.44); Carbon Dioxide 23 mmol/L (22-29); Chloride 101 mmol/L (98-107); Globulin 3.7 g/dL (2.4-3.5); Glucose 66 mg/dL (70-105); Potassium 5.3 mmol/L (3.5-5.1); Sodium 137 mmol/L (136-145)
[2021-01-08] MEDS ORDERED: hydrALAZINE 20 MG/ML VIAL ONE (05:16)
[2021-01-08 05:18] LABS: CKMB 2.1 ng/mL (0-6.6)
== END 2021-01-08 05:38 | disposition home or self-care (01) ==
LOC: ERS 03:33
DX: M54.5 Low back pain (principal); I10 Essential (primary) hypertension; Z99.2 Dependence on renal dialysis; W18.30XA Fall on same level, unspecified, initial encounter
CPT/HCPCS: 36415; 70450; 71045; 80053; 82553; 84484; 85025; 93005; 96374; J0360

== ENCOUNTER 2021-01-09 20:36 | Emergency (ER) | payer OTHER ==
[2021-01-09 22:43] LABS: #Eosinphils 0.1 thou/uL (0.0-0.7); #Lymphocytes 0.8 thou/uL (1.20-3.40); #Monocytes 0.6 thou/uL (0.11-0.59); #Neutrophils 4.5 thou/uL (1.40-6.50); %Basophils 0.3 % (0.0-1.0); %Lymphocytes 13.1 % (21.0-51.0); %Neutrophils 75.6 % (42.0-75.0); Hemoglobin 11.7 g/dL (14.0-18.0); Mean Corpuscular HGB CONC 33.4 g/dL (32.0-36.0); Mean Corpuscular Hemoglobin 32.5 pg (27.0-31.0); Mean Corpuscular Volume 97.2 fL (78.0-98.0); Mean Platelet Volume 7.7 fL (7.4-10.4); Platelet Count 157 thou/uL (130-400); RBC Distribution Width 14.5 % (11.5-14.5); White Blood Cell (WBC) Count 5.9 thou/uL (4.8-10.8)
[2021-01-09 23:26] LABS: ALT (SGPT) 25 U/L (8-55); AST (SGOT) 27 U/L (5-34); Albumin 4.2 g/dL (3.5-5.0); Alkaline Phosphatase 101 U/L (40-110); Anion Gap 21 mmol/L (10-20); BUN (Urea Nitrogen) 21 mg/dL (8.4-25.7); Bilirubin, Total 0.8 mg/dL (0.2-1.2); Calc. Creatinine Clearance 0 mL/min (70-130); Calcium 9.9 mg/dL (7.8-10.44); Carbon Dioxide 27 mmol/L (22-29); Chloride 96 mmol/L (98-107); Globulin 5.1 g/dL (2.4-3.5); Glucose 100 mg/dL (70-105); Potassium 3.7 mmol/L (3.5-5.1); Protein, Total 9.3 g/dL (6.0-8.3); Sodium 140 mmol/L (136-145)
[2021-01-10] MEDS ORDERED: levETIRAcetam 500 MG TAB PO SCH (00:30)
== END 2021-01-10 01:22 | disposition home or self-care (01) ==
LOC: ERS 20:36
DX: R04.0 Epistaxis (principal); R56.9 Unspecified convulsions; I10 Essential (primary) hypertension; Z99.2 Dependence on renal dialysis; Z79.899 Other long term (current) drug therapy
CPT/HCPCS: 36415; 80053; 85025; 99284

== ENCOUNTER 2021-01-23 08:45 | Inpatient (IN) | payer OTHER ==
[2021-01-23 11:58] LABS: #Eosinphils 0.1 thou/uL (0.0-0.7); #Lymphocytes 0.8 thou/uL (1.20-3.40); #Monocytes 0.4 thou/uL (0.11-0.59); #Neutrophils 3.6 thou/uL (1.40-6.50); %Basophils 0.6 % (0.0-1.0); %Eosinophils 1.9 % (0.0-10.0); %Lymphocytes 16.9 % (21.0-51.0); %Monocytes 8.1 % (0.0-10.0); %Neutrophils 72.4 % (42.0-75.0); ALT (SGPT) 43 U/L (8-55); AST (SGOT) 27 U/L (5-34); Albumin 3.5 g/dL (3.5-5.0); Alkaline Phosphatase 100 U/L (40-110); Anion Gap 23 mmol/L (10-20); BUN (Urea Nitrogen) 95 mg/dL (8.4-25.7); Bilirubin, Total 0.9 mg/dL (0.2-1.2); Calc. Creatinine Clearance 0 mL/min (70-130); Calcium 9.5 mg/dL (7.8-10.44); Carbon Dioxide 21 mmol/L (22-29); Chloride 99 mmol/L (98-107); Globulin 3.8 g/dL (2.4-3.5); Hemoglobin 9.3 g/dL (14.0-18.0); Mean Corpuscular HGB CONC 32.3 g/dL (32.0-36.0); Mean Corpuscular Volume 98.9 fL (78.0-98.0); Mean Platelet Volume 7.5 fL (7.4-10.4); Platelet Count 118 thou/uL (130-400); Platelet Morphology Comment Appears Decreased; Potassium 6.5 mmol/L (3.5-5.1); Protein, Total 7.3 g/dL (6.0-8.3); RBC Distribution Width 14.9 % (11.5-14.5); RBC Morphology Normal; Red Blood Cell (RBC) Count 2.91 mill/uL (4.70-6.10); Sodium 136 mmol/L (136-145)
[2021-01-23 12:01] LABS: Glucose 57 mg/dL (70-105)
[2021-01-23 12:13] LABS: CKMB 6.2 ng/mL (0-6.6)
[2021-01-23] MEDS ORDERED: Calcium Gluc 4.6 MEQ/10 ML (100 MG/ML) ONE (12:33)
[2021-01-23] MEDS ORDERED: Guaifenesin DM 100-10/5 ML UDCUP PO PRN (13:02)
[2021-01-23] MEDS ORDERED: Ondansetron PF 4 MG/2 ML Vial IVP PRN (13:02)
[2021-01-23] MEDS ORDERED: Acetaminophen 650 MG Suppository PR PRN (13:02)
[2021-01-23] MEDS ORDERED: Ondansetron ODT 4 MG TAB PO PRN (13:02)
[2021-01-23 15:04] LABS: Anion Gap 22 mmol/L (10-20); BUN (Urea Nitrogen) 95 mg/dL (8.4-25.7); Calc. Creatinine Clearance 0 mL/min (70-130); Calcium 9.9 mg/dL (7.8-10.44); Carbon Dioxide 20 mmol/L (22-29); Chloride 100 mmol/L (98-107); Glucose 69 mg/dL (70-105); Potassium 6.2 mmol/L (3.5-5.1); Sodium 136 mmol/L (136-145)
[2021-01-23] MEDS: hydrALAZINE 20 MG/ML VIAL SLOW IVP PRN ×2 (15:55→20:27)
[2021-01-23] MEDS: Acetaminophen 325 MG TAB PO PRN ×2 (15:59→22:26)
[2021-01-23] MEDS: Labetalol HCl 100 MG/20 ML VIAL SLOW IVP PRN ×2 (17:18→21:08)
[2021-01-23] MEDS: hydrALAZINE 25 MG TAB PO SCH (17:19)
[2021-01-23 18:14] VITALS: BMI 25.0
[2021-01-23 20:42] LABS: Anion Gap 19 mmol/L (10-20); BUN (Urea Nitrogen) 32 mg/dL (8.4-25.7); Calc. Creatinine Clearance 11 mL/min (70-130); Calcium 9.6 mg/dL (7.8-10.44); Carbon Dioxide 24 mmol/L (22-29); Chloride 99 mmol/L (98-107); Glucose 59 mg/dL (70-105); Potassium 3.8 mmol/L (3.5-5.1); Sodium 138 mmol/L (136-145)
[2021-01-23 21:23] LABS: SARS-CoV-2 PCR by NAA Not Detected (NotDetected)
[2021-01-23] MEDS ORDERED: Dextrose 50% Abboject 50 ML SYRINGE SLOW IVP SCH (21:30)
[2021-01-23] MEDS ORDERED: Labetalol HCl 100 MG/20 ML VIAL SLOW IVP SCH (23:45)
[2021-01-24] MEDS: Acetaminophen 325 MG TAB PO PRN ×2 (02:49→08:43)
[2021-01-24] MEDS: Labetalol HCl 100 MG/20 ML VIAL SLOW IVP PRN ×2 (02:49→18:15)
[2021-01-24 04:34] LABS: #Eosinphils 0.1 thou/uL (0.0-0.7); #Lymphocytes 0.8 thou/uL (1.20-3.40); #Monocytes 0.4 thou/uL (0.11-0.59); #Neutrophils 2.7 thou/uL (1.40-6.50); %Basophils 0.2 % (0.0-1.0); %Eosinophils 1.9 % (0.0-10.0); %Lymphocytes 20.1 % (21.0-51.0); %Monocytes 10.8 % (0.0-10.0); Hemoglobin 8.5 g/dL (14.0-18.0); Mean Corpuscular HGB CONC 33.9 g/dL (32.0-36.0); Mean Corpuscular Hemoglobin 33.5 pg (27.0-31.0); Mean Corpuscular Volume 98.8 fL (78.0-98.0); Mean Platelet Volume 7.4 fL (7.4-10.4); Platelet Count 98 thou/uL (130-400); RBC Distribution Width 14.8 % (11.5-14.5); Red Blood Cell (RBC) Count 2.54 mill/uL (4.70-6.10); White Blood Cell (WBC) Count 4.1 thou/uL (4.8-10.8)
[2021-01-24 04:38] LABS: ALT (SGPT) 35 U/L (8-55); AST (SGOT) 24 U/L (5-34); Albumin 3.1 g/dL (3.5-5.0); Alkaline Phosphatase 92 U/L (40-110); Anion Gap 14 mmol/L (10-20); BUN (Urea Nitrogen) 36 mg/dL (8.4-25.7); Bilirubin, Total 0.6 mg/dL (0.2-1.2); Calc. Creatinine Clearance 9 mL/min (70-130); Carbon Dioxide 29 mmol/L (22-29); Chloride 100 mmol/L (98-107); Globulin 3.3 g/dL (2.4-3.5); Glucose 79 mg/dL (70-105); Potassium 4.5 mmol/L (3.5-5.1); Protein, Total 6.4 g/dL (6.0-8.3); Sodium 138 mmol/L (136-145)
[2021-01-24] MEDS: hydrALAZINE 20 MG/ML VIAL SLOW IVP PRN ×3 (05:12→19:39)
[2021-01-24] MEDS: Amlodipine 10 MG TAB PO SCH (08:43)
[2021-01-24] MEDS: levETIRAcetam 500 MG TAB PO SCH (08:43)
[2021-01-24] MEDS: hydrALAZINE 25 MG TAB PO SCH ×4 (08:43→17:30)
[2021-01-24] MEDS ORDERED: HYDROcodone/Acetaminophen 5/325 mg Tablet PO PRN (12:14)
[2021-01-25] MEDS: Labetalol HCl 100 MG/20 ML VIAL SLOW IVP PRN ×3 (00:53→10:13)
[2021-01-25] MEDS: hydrALAZINE 20 MG/ML VIAL SLOW IVP PRN (03:37)
[2021-01-25] MEDS ORDERED: HYDROcodone/Acetaminophen 5/325 mg Tablet PO PRN (10:33)
[2021-01-25] MEDS: hydrALAZINE 25 MG TAB PO SCH ×3 (11:28→16:11)
[2021-01-25] MEDS: Amlodipine 10 MG TAB PO SCH (12:24)
[2021-01-25] MEDS: levETIRAcetam 500 MG TAB PO SCH (12:24)
[2021-01-25] MEDS ORDERED: Famotidine 20 MG TAB PO SCH (14:45)
[2021-01-25 15:43] VITALS: BP 184/90; TEMP 98
[2021-01-25] MEDS ORDERED: cloNIDine 0.1 MG TAB PO SCH (16:15)
[2021-01-25] MEDS ORDERED: Carvedilol 25 MG TAB PO SCH (17:00)
== END 2021-01-25 17:38 | disposition home or self-care (01) | DRG 640 ==
LOC: ERS 08:45 → 2NO 12:56
PROVIDERS: ADMIT Family Medicine; ATTEND Hospitalist
PROC: 5A1D70Z Performance of Urinary Filtration, Intermittent, Less than 6 Hours Per Day (ICD-10-PCS; principal; 2021-01-23)
DX: E87.5 Hyperkalemia (principal); N18.6 End stage renal disease; I13.0 Hypertensive heart and chronic kidney disease with heart failure and stage 1 through stage 4 chronic kidney disease, or unspecified chronic kidney disease; Z20.822 Contact with and (suspected) exposure to COVID-19; E78.5 Hyperlipidemia, unspecified; G40.909 Epilepsy, unspecified, not intractable, without status epilepticus; D63.1 Anemia in chronic kidney disease; I25.10 Atherosclerotic heart disease of native coronary artery without angina pectoris; E87.2 Acidosis; E87.70 Fluid overload, unspecified; I50.9 Heart failure, unspecified; E88.09 Other disorders of plasma-protein metabolism, not elsewhere classified; Z79.899 Other long term (current) drug therapy; Z90.49 Acquired absence of other specified parts of digestive tract; Z91.041 Radiographic dye allergy status; Z99.2 Dependence on renal dialysis; Z91.15 Patient's noncompliance with renal dialysis; Z91.14 Patient's other noncompliance with medication regimen
CPT/HCPCS: 36415; 36416; 70450; 71045; 72220; 80053; 82553; 83735; 83880; 84443; 84484; 85025; 87635; 90935; 93005; 94760; 96374; G0257; J0360; J2001; J2405; Q0162; U0003; U0005

== ENCOUNTER 2021-03-01 18:28 | Inpatient (IN) | payer OTHER ==
[2021-03-01 19:06] LABS: #Eosinphils 0.1 thou/uL (0.0-0.7); #Lymphocytes 0.9 thou/uL (1.20-3.40); #Monocytes 0.4 thou/uL (0.11-0.59); #Neutrophils 1.8 thou/uL (1.40-6.50); %Basophils 0.3 % (0.0-1.0); %Eosinophils 4.5 % (0.0-10.0); %Lymphocytes 28.2 % (21.0-51.0); %Monocytes 11.8 % (0.0-10.0); %Neutrophils 55.2 % (42.0-75.0); Hemoglobin 8.3 g/dL (14.0-18.0); Mean Corpuscular HGB CONC 32.9 g/dL (32.0-36.0); Mean Platelet Volume 7.1 fL (7.4-10.4); Platelet Count 169 thou/uL (130-400); RBC Distribution Width 14.6 % (11.5-14.5); White Blood Cell (WBC) Count 3.2 thou/uL (4.8-10.8)
[2021-03-01] MEDS ORDERED: methylPREDNISolone Sod Succ/PF 125 MG/2 ML VIAL ONE (19:19)
[2021-03-01] MEDS ORDERED: Aspirin Chewable 81 MG TAB ONE (19:19)
[2021-03-01] MEDS ORDERED: Famotidine/PF 20 mg/2ml Vial ONE (19:19)
[2021-03-01] MEDS ORDERED: diphenhydrAMINE 50 MG/ML VIAL ONE (19:19)
[2021-03-01 19:25] LABS: ALT (SGPT) 27 U/L (8-55); AST (SGOT) 20 U/L (5-34); Albumin 3.5 g/dL (3.5-5.0); Alkaline Phosphatase 89 U/L (40-110); Anion Gap 13 mmol/L (10-20); BUN (Urea Nitrogen) 19 mg/dL (8.4-25.7); Bilirubin, Total 0.5 mg/dL (0.2-1.2); CK (CPK) 66 U/L (30-200); Calc. Creatinine Clearance 0 mL/min (70-130); Calcium 9.7 mg/dL (7.8-10.44); Carbon Dioxide 33 mmol/L (22-29); Chloride 98 mmol/L (98-107); Globulin 3.3 g/dL (2.4-3.5); Glucose 140 mg/dL (70-105); Protein, Total 6.8 g/dL (6.0-8.3); Sodium 140 mmol/L (136-145)
[2021-03-01] MEDS ORDERED: Lorazepam 2 MG/ML VIAL ONE (20:12)
[2021-03-01] MEDS ORDERED: Haloperidol Lactate 5 MG/ML VIAL ONE (20:12)
[2021-03-01] MEDS ORDERED: Ondansetron PF 4 MG/2 ML Vial IVP PRN (20:33)
[2021-03-01] MEDS ORDERED: Acetaminophen 325 MG TAB PO PRN (20:33)
[2021-03-01] MEDS ORDERED: hydrALAZINE 20 MG/ML VIAL SLOW IVP PRN (20:37)
[2021-03-01 21:14] LABS: Acetaminophen Less than 6.0 mcg/mL (10.0-30.0); Alcohol Less than 10 mg/dL (Less than 10); Salicylate Less than 8.0 mg/dL (15.0-30.0)
[2021-03-02] MEDS ORDERED: levETIRAcetam 500 MG TAB PO SCH ×2 (09:00→17:45)
[2021-03-02] MEDS: Amlodipine 10 MG TAB PO SCH (11:37)
[2021-03-02 16:28] LABS: #Eosinphils 0.2 thou/uL (0.0-0.7); #Lymphocytes 1.1 thou/uL (1.20-3.40); #Monocytes 0.4 thou/uL (0.11-0.59); #Neutrophils 3.3 thou/uL (1.40-6.50); %Basophils 0.6 % (0.0-1.0); %Eosinophils 3.6 % (0.0-10.0); %Lymphocytes 21.5 % (21.0-51.0); %Monocytes 8.8 % (0.0-10.0); %Neutrophils 65.5 % (42.0-75.0); Mean Corpuscular HGB CONC 33.2 g/dL (32.0-36.0); Mean Corpuscular Hemoglobin 33.1 pg (27.0-31.0); Mean Corpuscular Volume 99.5 fL (78.0-98.0); Platelet Count 160 thou/uL (130-400); RBC Distribution Width 15.2 % (11.5-14.5); Red Blood Cell (RBC) Count 2.73 mill/uL (4.70-6.10)
[2021-03-02 16:44] LABS: Acetaminophen Less than 6.0 mcg/mL (10.0-30.0); Alcohol Less than 10 mg/dL (Less than 10); Anion Gap 15 mmol/L (10-20); BUN (Urea Nitrogen) 28 mg/dL (8.4-25.7); Calc. Creatinine Clearance 9 mL/min (70-130); Carbon Dioxide 29 mmol/L (22-29); Cardiac Risk 3.8 (Less than 4.5); Chloride 100 mmol/L (98-107); Cholesterol 118 mg/dl (< 200 Desired); Glucose 72 mg/dL (70-105); HDL Cholesterol 31 mg/dL (>60 Neg Risk); LDL Cholesterol, Calculated 70 mg/dL; Potassium 5.1 mmol/L (3.5-5.1); Salicylate Less than 8.0 mg/dL (15.0-30.0); Sodium 139 mmol/L (136-145); Triglycerides 85 mg/dL (Less than 150)
[2021-03-02] MEDS: Carvedilol 25 MG TAB PO SCH (16:53)
[2021-03-02] MEDS: levETIRAcetam 500 MG TAB PO SCH (20:45)
[2021-03-03 05:27] LABS: #Eosinphils 0.2 thou/uL (0.0-0.7); #Lymphocytes 1.2 thou/uL (1.20-3.40); #Monocytes 0.4 thou/uL (0.11-0.59); #Neutrophils 2.9 thou/uL (1.40-6.50); %Eosinophils 3.4 % (0.0-10.0); %Monocytes 9.3 % (0.0-10.0); %Neutrophils 61.3 % (42.0-75.0); Hemoglobin 8.6 g/dL (14.0-18.0); Mean Corpuscular HGB CONC 32.6 g/dL (32.0-36.0); Mean Corpuscular Hemoglobin 32.4 pg (27.0-31.0); Mean Corpuscular Volume 99.5 fL (78.0-98.0); Mean Platelet Volume 7.3 fL (7.4-10.4); Platelet Count 162 thou/uL (130-400); RBC Distribution Width 15.2 % (11.5-14.5); Red Blood Cell (RBC) Count 2.64 mill/uL (4.70-6.10); White Blood Cell (WBC) Count 4.7 thou/uL (4.8-10.8)
[2021-03-03 05:51] LABS: Anion Gap 16 mmol/L (10-20); BUN (Urea Nitrogen) 33 mg/dL (8.4-25.7); Calc. Creatinine Clearance 8 mL/min (70-130); Calcium 9.9 mg/dL (7.8-10.44); Carbon Dioxide 29 mmol/L (22-29); Chloride 99 mmol/L (98-107); Glucose 60 mg/dL (70-105); Potassium 4.5 mmol/L (3.5-5.1); Sodium 139 mmol/L (136-145)
[2021-03-03 06:09] LABS: HBSAg Index 0.21 S/CO (0-0.99); Hep B Surf Ag Non-Reactive S/CO (NonReactive)
[2021-03-03 06:36] LABS: Hep C IgG Ab Reflex HepC Qnt (NonReactive); Hep C Index 15.66 S/CO (0-0.79)
[2021-03-03 07:21] LABS: Hep B Core Total Ab Reactive (NonReactive); Hep B Core Total Index 7.27 S/CO (0-0.79)
[2021-03-03 07:23] LABS: HBSAB Concentration 6.62 mIU/mL
[2021-03-03] MEDS: Amlodipine 10 MG TAB PO SCH (09:34)
[2021-03-03] MEDS: Carvedilol 25 MG TAB PO SCH (09:34)
[2021-03-03] MEDS: levETIRAcetam 500 MG TAB PO SCH (09:34)
[2021-03-03] MEDS: hydrALAZINE 25 MG TAB PO SCH ×2 (09:35→14:28)
[2021-03-03 12:21] VITALS: BP 172/92; TEMP 97.9
[2021-03-05 11:13] LABS: Hep C PCR-Quant HCV Not Detected IU/mL (.)
== END 2021-03-03 15:01 | disposition home or self-care (01) | DRG 100 ==
LOC: ERS 18:28 → 2SE 20:57 → OBSVTOIN 03-03 08:52
PROVIDERS: ADMIT Internal Medicine; ATTEND Internal Medicine
DX: G40.909 Epilepsy, unspecified, not intractable, without status epilepticus (principal); N18.6 End stage renal disease; I12.0 Hypertensive chronic kidney disease with stage 5 chronic kidney disease or end stage renal disease; E78.5 Hyperlipidemia, unspecified; D64.9 Anemia, unspecified; D72.819 Decreased white blood cell count, unspecified; Z99.2 Dependence on renal dialysis; Z91.041 Radiographic dye allergy status; Z79.899 Other long term (current) drug therapy; Z90.49 Acquired absence of other specified parts of digestive tract; Z98.890 Other specified postprocedural states; Z91.19 Patient's noncompliance with other medical treatment and regimen
CPT/HCPCS: 36415; 70450; 70551; 71045; 80048; 80053; 80061; 80177; 80307; 82140; 82550; 84484; 85025; 86704; 86706; 86803; 87340; 87522; 93005; 95816; 95819; 95957; 96374; 96375; G0378; J0360; J1200; J1630; J2060; J2930; S0028

== ENCOUNTER 2021-04-01 09:54 | Emergency (ER) | payer OTHER | END 2021-04-01 18:40 | disposition home or self-care (01) | LOC: ERS 09:54 | DX: I12.0 Hypertensive chronic kidney disease with stage 5 chronic kidney disease or end stage renal disease (principal); N18.6 End stage renal disease; D63.1 Anemia in chronic kidney disease | CPT/HCPCS: 36415; 80053; 83880; 85025; 87040; 90935; 93005; G0257; J1644 ==

== ENCOUNTER 2021-04-12 15:52 | Emergency (ER) | payer OTHER ==
[2021-04-12 16:41] LABS: #Eosinphils 0.1 thou/uL (0.0-0.7); #Monocytes 0.3 thou/uL (0.11-0.59); %Monocytes 7.9 % (0.0-10.0); Hemoglobin 7.7 g/dL (14.0-18.0); Mean Platelet Volume 7.6 fL (7.4-10.4); Red Blood Cell (RBC) Count 2.29 mill/uL (4.70-6.10); White Blood Cell (WBC) Count 3.9 thou/uL (4.8-10.8)
[2021-04-12 16:49] LABS: #Lymphocytes 0.8 thou/uL (1.20-3.40); #Neutrophils 2.7 thou/uL (1.40-6.50); %Basophils 1.2 % (0.0-1.0); %Eosinophils 2.7 % (0.0-10.0); %Lymphocytes 19.3 % (21.0-51.0); Mean Corpuscular HGB CONC 34.1 g/dL (32.0-36.0); Mean Corpuscular Hemoglobin 33.6 pg (27.0-31.0); Mean Corpuscular Volume 98.4 fL (78.0-98.0); Platelet Count 159 thou/uL (130-400); RBC Distribution Width 15.6 % (11.5-14.5)
[2021-04-12 17:07] LABS: ALT (SGPT) 14 U/L (8-55); AST (SGOT) 23 U/L (5-34); Albumin 3.7 g/dL (3.5-5.0); Alkaline Phosphatase 79 U/L (40-110); Anion Gap 14 mmol/L (10-20); BUN (Urea Nitrogen) 8 mg/dL (8.4-25.7); Bilirubin, Total 0.5 mg/dL (0.2-1.2); Calc. Creatinine Clearance 0 mL/min (70-130); Calcium 9.3 mg/dL (7.8-10.44); Carbon Dioxide 33 mmol/L (22-29); Chloride 95 mmol/L (98-107); Globulin 4.5 g/dL (2.4-3.5); Glucose 84 mg/dL (70-105); Potassium 3.6 mmol/L (3.5-5.1); Protein, Total 8.2 g/dL (6.0-8.3); Sodium 138 mmol/L (136-145)
[2021-04-12] MEDS ORDERED: Labetalol HCl 100 MG/20 ML VIAL ONE (20:13)
[2021-04-12 21:01] LABS: Anion Gap 9 mmol/L (10-20); BUN (Urea Nitrogen) 8 mg/dL (8.4-25.7); Calc. Creatinine Clearance 0 mL/min (70-130); Calcium 8.8 mg/dL (7.8-10.44); Carbon Dioxide 35 mmol/L (22-29); Chloride 98 mmol/L (98-107); Glucose 76 mg/dL (70-105); Potassium 3.9 mmol/L (3.5-5.1); Sodium 138 mmol/L (136-145)
== END 2021-04-12 21:25 | disposition home or self-care (01) ==
LOC: ERS 15:52
DX: I12.0 Hypertensive chronic kidney disease with stage 5 chronic kidney disease or end stage renal disease (principal); N18.6 End stage renal disease; D63.1 Anemia in chronic kidney disease; Z99.2 Dependence on renal dialysis
CPT/HCPCS: 36415; 36430; 80053; 85018; 86850; 86900; 86901; 96374; P9016

== ENCOUNTER 2021-04-15 20:02 | Emergency (ER) | payer OTHER ==
[2021-04-15 21:08] LABS: #Eosinphils 0.1 thou/uL (0.0-0.7); #Lymphocytes 0.6 thou/uL (1.20-3.40); #Monocytes 0.3 thou/uL (0.11-0.59); #Neutrophils 2.1 thou/uL (1.40-6.50); %Basophils 0.2 % (0.0-1.0); %Eosinophils 4.2 % (0.0-10.0); %Lymphocytes 19.9 % (21.0-51.0); %Neutrophils 65.8 % (42.0-75.0); Hemoglobin 8.6 g/dL (14.0-18.0); Mean Corpuscular HGB CONC 33.7 g/dL (32.0-36.0); Mean Corpuscular Hemoglobin 32.8 pg (27.0-31.0); Mean Corpuscular Volume 97.5 fL (78.0-98.0); Mean Platelet Volume 7.5 fL (7.4-10.4); Platelet Count 127 thou/uL (130-400); RBC Distribution Width 15.3 % (11.5-14.5); Red Blood Cell (RBC) Count 2.62 mill/uL (4.70-6.10); White Blood Cell (WBC) Count 3.2 thou/uL (4.8-10.8)
[2021-04-15 21:34] LABS: ALT (SGPT) 10 U/L (8-55); AST (SGOT) 12 U/L (5-34); Albumin 3.2 g/dL (3.5-5.0); Alkaline Phosphatase 87 U/L (40-110); Anion Gap 11 mmol/L (10-20); BUN (Urea Nitrogen) 18 mg/dL (8.4-25.7); Bilirubin, Total 0.4 mg/dL (0.2-1.2); Calc. Creatinine Clearance 0 mL/min (70-130); Calcium 8.7 mg/dL (7.8-10.44); Carbon Dioxide 33 mmol/L (22-29); Chloride 97 mmol/L (98-107); Globulin 3.7 g/dL (2.4-3.5); Glucose 150 mg/dL (70-105); Potassium 3.5 mmol/L (3.5-5.1); Protein, Total 6.9 g/dL (6.0-8.3); Sodium 137 mmol/L (136-145)
== END 2021-04-15 23:13 | disposition home or self-care (01) ==
LOC: ERS 20:02
DX: I95.9 Hypotension, unspecified (principal); R41.82 Altered mental status, unspecified; R47.81 Slurred speech; I12.0 Hypertensive chronic kidney disease with stage 5 chronic kidney disease or end stage renal disease; N18.6 End stage renal disease; Z99.2 Dependence on renal dialysis
CPT/HCPCS: 36415; 80053; 85027; 93005

== ENCOUNTER 2021-04-17 17:09 | Emergency (ER) | payer OTHER ==
[2021-04-17 17:28] LABS: #Eosinphils 0.1 thou/uL (0.0-0.7); #Monocytes 0.3 thou/uL (0.11-0.59); %Basophils 0.8 % (0.0-1.0); %Eosinophils 3.4 % (0.0-10.0); %Lymphocytes 28.1 % (21.0-51.0); %Monocytes 9.3 % (0.0-10.0); %Neutrophils 58.3 % (42.0-75.0); Hemoglobin 8.5 g/dL (14.0-18.0); Mean Corpuscular HGB CONC 32.5 g/dL (32.0-36.0); Mean Corpuscular Hemoglobin 31.9 pg (27.0-31.0); Mean Corpuscular Volume 98.2 fL (78.0-98.0); Mean Platelet Volume 7.9 fL (7.4-10.4); Platelet Count 144 thou/uL (130-400); RBC Distribution Width 15.6 % (11.5-14.5); Red Blood Cell (RBC) Count 2.66 mill/uL (4.70-6.10); White Blood Cell (WBC) Count 3.4 thou/uL (4.8-10.8)
[2021-04-17 17:53] LABS: ALT (SGPT) 15 U/L (8-55); AST (SGOT) 26 U/L (5-34); Albumin 3.4 g/dL (3.5-5.0); Alkaline Phosphatase 81 U/L (40-110); Anion Gap 16 mmol/L (10-20); BUN (Urea Nitrogen) 37 mg/dL (8.4-25.7); Bilirubin, Total 0.5 mg/dL (0.2-1.2); Calc. Creatinine Clearance 0 mL/min (70-130); Carbon Dioxide 29 mmol/L (22-29); Chloride 100 mmol/L (98-107); Globulin 3.8 g/dL (2.4-3.5); Glucose 102 mg/dL (70-105); Lipase 50 U/L (8-78); Magnesium 1.8 mg/dL (1.6-2.6); Potassium 4.2 mmol/L (3.5-5.1); Protein, Total 7.2 g/dL (6.0-8.3); Sodium 141 mmol/L (136-145)
== END 2021-04-17 19:24 | disposition home or self-care (01) ==
LOC: ERS 17:09
DX: I12.0 Hypertensive chronic kidney disease with stage 5 chronic kidney disease or end stage renal disease (principal); N18.6 End stage renal disease; Z99.2 Dependence on renal dialysis
CPT/HCPCS: 70450; 71045; 80053; 83690; 83735; 84484; 85025; 93005

== ENCOUNTER 2021-05-13 15:59 | Inpatient (IN) | payer OTHER ==
[~2021-05-13 15:59] MED LIST: Heparin 10,000 UNITS/ 10 ML VIAL ONE
[2021-05-13 16:40] LABS: #Eosinphils 0.1 thou/uL (0.0-0.7); #Lymphocytes 1.1 thou/uL (1.20-3.40); #Monocytes 0.5 thou/uL (0.11-0.59); %Basophils 0.2 % (0.0-1.0); %Eosinophils 2.7 % (0.0-10.0); %Lymphocytes 23.6 % (21.0-51.0); %Monocytes 11.4 % (0.0-10.0); %Neutrophils 62.1 % (42.0-75.0); Hemoglobin 6.9 g/dL (14.0-18.0); Mean Corpuscular HGB CONC 33.6 g/dL (32.0-36.0); Mean Corpuscular Hemoglobin 31.4 pg (27.0-31.0); Mean Corpuscular Volume 93.4 fL (78.0-98.0); Mean Platelet Volume 7.1 fL (7.4-10.4); Platelet Count 132 thou/uL (130-400); RBC Distribution Width 15.2 % (11.5-14.5); White Blood Cell (WBC) Count 4.8 thou/uL (4.8-10.8)
[2021-05-13 17:02] LABS: Acetaminophen Less than 6.0 mcg/mL (10.0-30.0); Alcohol Less than 10 mg/dL (Less than 10); Salicylate Less than 8.0 mg/dL (15.0-30.0)
[2021-05-13 17:25] LABS: ALT (SGPT) 9 U/L (8-55); AST (SGOT) 11 U/L (5-34); Albumin 3.1 g/dL (3.5-5.0); Alkaline Phosphatase 63 U/L (40-110); Anion Gap 17 mmol/L (10-20); BUN (Urea Nitrogen) 57 mg/dL (8.4-25.7); Bilirubin, Total 0.7 mg/dL (0.2-1.2); Calc. Creatinine Clearance 0 mL/min (70-130); Calcium 8.7 mg/dL (7.8-10.44); Carbon Dioxide 26 mmol/L (22-29); Chloride 96 mmol/L (98-107); Globulin 3.9 g/dL (2.4-3.5); Glucose 79 mg/dL (70-105); Potassium 3.9 mmol/L (3.5-5.1); Sodium 135 mmol/L (136-145)
[2021-05-13] MEDS ORDERED: EPOETIN ALFA-EPBX (ESRD) 2,000 UNIT/ML VIAL SC SCH (18:00)
[2021-05-13] MEDS ORDERED: EPOETIN ALFA-EPBX (ESRD) 3,000 UNIT/ML VIAL SC SCH (18:00)
[2021-05-13] MEDS ORDERED: hydrALAZINE 20 MG/ML VIAL SLOW IVP PRN (20:10)
[2021-05-13 20:20] LABS: INR-International Normal Ratio 1.4; Prothrombin Time 17.6 sec (12.0-14.7)
[2021-05-13 20:20] LABS: Troponin I 0.231 ng/mL (< 0.028)
[2021-05-13 20:21] LABS: PTT 41.9 sec (22.9-36.1)
[2021-05-13 20:55] LABS: Magnesium 1.6 mg/dL (1.6-2.6)
[2021-05-13] MEDS ORDERED: cloNIDine 0.3 MG TAB PO PRN (20:58)
[2021-05-13] MEDS ORDERED: Carvedilol 6.25 MG TAB PO SCH (21:30)
[2021-05-13 23:53] LABS: Troponin I 0.207 ng/mL (< 0.028)
[2021-05-14] MEDS ORDERED: Vancomycin HCl 750 MG in Sodium Chloride 0.9% 250 ML 250 ML IVPB SCH (02:15)
[2021-05-14] MEDS ORDERED: Vancomycin HCl 1.25 GM in Sodium Chloride 0.9% 250 ML 250 ML IVPB SCH (02:15)
[2021-05-14] MEDS ORDERED: Vancomycin 1 GM in Premix Bag 1 BAG IVPB SCH (02:15)
[2021-05-14] MEDS ORDERED: HOLD VANCOMYCIN FOR LEVEL >20 FS SCH (02:15)
[2021-05-14] MEDS ORDERED: Vancomycin HCl 500 MG in Sodium Chloride 0.9% 100 ML IVPB SCH (02:15)
[2021-05-14] MEDS ORDERED: Vancomycin 1.5 GRAM/300 ML BAG 1.5 GM in Premix Bag 1 BAG IVPB SCH (03:00)
[2021-05-14] MEDS: hydrALAZINE 20 MG/ML VIAL SLOW IVP PRN ×3 (04:18→10:59)
[2021-05-14 05:05] LABS: #Eosinphils 0.1 thou/uL (0.0-0.7); #Lymphocytes 0.5 thou/uL (1.20-3.40); #Monocytes 0.3 thou/uL (0.11-0.59); #Neutrophils 2.7 thou/uL (1.40-6.50); %Basophils 0.4 % (0.0-1.0); %Eosinophils 2.3 % (0.0-10.0); %Lymphocytes 14.2 % (21.0-51.0); %Monocytes 8.6 % (0.0-10.0); %Neutrophils 74.4 % (42.0-75.0); Hemoglobin 8.1 g/dL (14.0-18.0); Mean Corpuscular HGB CONC 34.4 g/dL (32.0-36.0); Platelet Count 156 thou/uL (130-400); RBC Distribution Width 14.8 % (11.5-14.5); Red Blood Cell (RBC) Count 2.53 mill/uL (4.70-6.10); White Blood Cell (WBC) Count 3.7 thou/uL (4.8-10.8)
[2021-05-14 05:38] LABS: ALT (SGPT) 11 U/L (8-55); AST (SGOT) 12 U/L (5-34); Albumin 3.2 g/dL (3.5-5.0); Alkaline Phosphatase 67 U/L (40-110); Anion Gap 10 mmol/L (10-20); BUN (Urea Nitrogen) 23 mg/dL (8.4-25.7); Bilirubin, Total 1.2 mg/dL (0.2-1.2); Calc. Creatinine Clearance 13 mL/min (70-130); Calcium 9.1 mg/dL (7.8-10.44); Carbon Dioxide 31 mmol/L (22-29); Chloride 99 mmol/L (98-107); Globulin 4.2 g/dL (2.4-3.5); Glucose 74 mg/dL (70-105); Potassium 3.3 mmol/L (3.5-5.1); Protein, Total 7.4 g/dL (6.0-8.3); Sodium 137 mmol/L (136-145)
[2021-05-14] MEDS ORDERED: levETIRAcetam 500 MG TAB PO SCH (09:00)
[2021-05-14] MEDS: Carvedilol 6.25 MG TAB PO SCH ×2 (10:50→15:35)
[2021-05-14] MEDS: Amlodipine 10 MG TAB PO SCH (10:51)
[2021-05-14] MEDS: Pantoprazole 40 MG VIAL IVP SCH (10:51)
[2021-05-14] MEDS: hydrALAZINE 25 MG TAB PO SCH ×3 (10:51→21:35)
[2021-05-14 10:56] VITALS: BMI 23.8
[2021-05-14 13:08] LABS: SARS-CoV-2 PCR by NAA Not Detected (NotDetected)
[2021-05-14] MEDS ORDERED: hydrALAZINE 20 MG/ML VIAL SLOW IVP SCH (17:15)
[2021-05-14] MEDS ORDERED: hydrALAZINE 20 MG/ML VIAL SLOW IVP PRN (18:53)
[2021-05-14] MEDS: Acetaminophen 325 MG TAB PO PRN (21:34)
[2021-05-14] MEDS: levETIRAcetam 500 MG TAB PO SCH (21:36)
[2021-05-14] MEDS: Amitriptyline HCl 100 MG TAB PO SCH (21:36)
[2021-05-15 05:25] LABS: #Lymphocytes 0.7 thou/uL (1.20-3.40); #Monocytes 0.4 thou/uL (0.11-0.59); #Neutrophils 4.7 thou/uL (1.40-6.50); %Basophils 0.1 % (0.0-1.0); %Eosinophils 0.6 % (0.0-10.0); %Lymphocytes 12.5 % (21.0-51.0); %Monocytes 6.2 % (0.0-10.0); %Neutrophils 80.7 % (42.0-75.0); Hemoglobin 8.3 g/dL (14.0-18.0); Mean Corpuscular Hemoglobin 30.6 pg (27.0-31.0); Mean Corpuscular Volume 92.9 fL (78.0-98.0); Mean Platelet Volume 7.5 fL (7.4-10.4); Platelet Count 164 thou/uL (130-400); RBC Distribution Width 14.9 % (11.5-14.5); White Blood Cell (WBC) Count 5.8 thou/uL (4.8-10.8)
[2021-05-15 06:22] LABS: ALT (SGPT) 9 U/L (8-55); AST (SGOT) 11 U/L (5-34); Albumin 3.4 g/dL (3.5-5.0); Alkaline Phosphatase 72 U/L (40-110); Anion Gap 21 mmol/L (10-20); BUN (Urea Nitrogen) 34 mg/dL (8.4-25.7); Bilirubin, Total 0.8 mg/dL (0.2-1.2); Calc. Creatinine Clearance 8 mL/min (70-130); Calcium 9.5 mg/dL (7.8-10.44); Carbon Dioxide 22 mmol/L (22-29); Chloride 96 mmol/L (98-107); Globulin 4.2 g/dL (2.4-3.5); Glucose 89 mg/dL (70-105); Potassium 3.7 mmol/L (3.5-5.1); Protein, Total 7.6 g/dL (6.0-8.3); Sodium 135 mmol/L (136-145)
[2021-05-15] MEDS: Carvedilol 6.25 MG TAB PO SCH ×2 (08:00→20:19)
[2021-05-15] MEDS ORDERED: Heparin 10,000 UNITS/ 10 ML VIAL ONE (09:30)
[2021-05-15] MEDS: Acetaminophen 325 MG TAB PO PRN ×2 (10:05→15:12)
[2021-05-15] MEDS: hydrALAZINE 25 MG TAB PO SCH ×4 (12:43→20:24)
[2021-05-15] MEDS: Pantoprazole 40 MG VIAL IVP SCH (12:48)
[2021-05-15] MEDS: levETIRAcetam 500 MG TAB PO SCH ×3 (12:49→20:25)
[2021-05-15] MEDS: Amlodipine 10 MG TAB PO SCH (12:49)
[2021-05-15] MEDS ORDERED: cloNIDine 0.3 MG TAB PO PRN (16:15)
[2021-05-15] MEDS: Carvedilol 25 MG TAB PO SCH (16:15)
[2021-05-15] MEDS: Sevelamer Carbonate 800 MG TAB PO SCH (17:51)
[2021-05-15] MEDS: Amitriptyline HCl 100 MG TAB PO SCH (20:19)
[2021-05-15] MEDS ORDERED: AMITRIPTYLINE HCL 150 MG PO SCH (21:00)
[2021-05-16 04:38] LABS: #Eosinphils 0.1 thou/uL (0.0-0.7); #Lymphocytes 1.1 thou/uL (1.20-3.40); #Monocytes 0.5 thou/uL (0.11-0.59); #Neutrophils 2.1 thou/uL (1.40-6.50); %Basophils 0.7 % (0.0-1.0); %Eosinophils 1.7 % (0.0-10.0); %Lymphocytes 29.2 % (21.0-51.0); %Monocytes 13.7 % (0.0-10.0); %Neutrophils 54.8 % (42.0-75.0); Hemoglobin 7.5 g/dL (14.0-18.0); Mean Corpuscular HGB CONC 33.9 g/dL (32.0-36.0); Mean Corpuscular Hemoglobin 31.8 pg (27.0-31.0); Mean Corpuscular Volume 93.8 fL (78.0-98.0); Mean Platelet Volume 6.9 fL (7.4-10.4); Platelet Count 171 thou/uL (130-400); RBC Distribution Width 14.4 % (11.5-14.5); Red Blood Cell (RBC) Count 2.35 mill/uL (4.70-6.10); White Blood Cell (WBC) Count 3.7 thou/uL (4.8-10.8)
[2021-05-16 05:00] LABS: ALT (SGPT) 7 U/L (8-55); AST (SGOT) 11 U/L (5-34); Alkaline Phosphatase 63 U/L (40-110); Anion Gap 11 mmol/L (10-20); BUN (Urea Nitrogen) 21 mg/dL (8.4-25.7); Bilirubin, Total 0.5 mg/dL (0.2-1.2); Calc. Creatinine Clearance 13 mL/min (70-130); Calcium 9.2 mg/dL (7.8-10.44); Carbon Dioxide 31 mmol/L (22-29); Chloride 100 mmol/L (98-107); Globulin 3.8 g/dL (2.4-3.5); Glucose 81 mg/dL (70-105); Protein, Total 6.8 g/dL (6.0-8.3); Sodium 138 mmol/L (136-145)
[2021-05-16] MEDS: Sevelamer Carbonate 800 MG TAB PO SCH ×3 (08:42→16:53)
[2021-05-16] MEDS: levETIRAcetam 500 MG TAB PO SCH ×3 (08:43→20:41)
[2021-05-16] MEDS: Amlodipine 10 MG TAB PO SCH (08:43)
[2021-05-16] MEDS: Clopidogrel Bisulfate 75 MG TAB PO SCH (08:43)
[2021-05-16] MEDS: hydrALAZINE 25 MG TAB PO SCH ×4 (08:43→20:40)
[2021-05-16] MEDS: Pantoprazole 40 MG VIAL IVP SCH (08:46)
[2021-05-16] MEDS: Carvedilol 25 MG TAB PO SCH ×2 (08:49→16:54)
[2021-05-16] MEDS: Carvedilol 6.25 MG TAB PO SCH ×2 (09:37→20:41)
[2021-05-16] MEDS: Amitriptyline HCl 100 MG TAB PO SCH (20:41)
[2021-05-17 04:37] LABS: #Lymphocytes 0.8 thou/uL (1.20-3.40); #Monocytes 0.4 thou/uL (0.11-0.59); #Neutrophils 2.2 thou/uL (1.40-6.50); %Basophils 0.3 % (0.0-1.0); %Eosinophils 1.3 % (0.0-10.0); %Lymphocytes 23.9 % (21.0-51.0); %Monocytes 12.5 % (0.0-10.0); Hemoglobin 7.2 g/dL (14.0-18.0); Mean Corpuscular HGB CONC 34.3 g/dL (32.0-36.0); Mean Corpuscular Hemoglobin 32.3 pg (27.0-31.0); Mean Corpuscular Volume 94.3 fL (78.0-98.0); Mean Platelet Volume 7.1 fL (7.4-10.4); Platelet Count 130 thou/uL (130-400); RBC Distribution Width 14.4 % (11.5-14.5); Red Blood Cell (RBC) Count 2.23 mill/uL (4.70-6.10); White Blood Cell (WBC) Count 3.5 thou/uL (4.8-10.8)
[2021-05-17 05:03] LABS: ALT (SGPT) Less than 7 U/L (8-55); AST (SGOT) 9 U/L (5-34); Albumin 3.3 g/dL (3.5-5.0); Alkaline Phosphatase 73 U/L (40-110); Anion Gap 15 mmol/L (10-20); BUN (Urea Nitrogen) 30 mg/dL (8.4-25.7); Bilirubin, Total 0.5 mg/dL (0.2-1.2); Calc. Creatinine Clearance 9 mL/min (70-130); Calcium 9.2 mg/dL (7.8-10.44); Carbon Dioxide 29 mmol/L (22-29); Chloride 97 mmol/L (98-107); Globulin 3.8 g/dL (2.4-3.5); Glucose 91 mg/dL (70-105); Potassium 3.9 mmol/L (3.5-5.1); Protein, Total 7.1 g/dL (6.0-8.3); Sodium 137 mmol/L (136-145)
[2021-05-17] MEDS: Amlodipine 10 MG TAB PO SCH (08:39)
[2021-05-17] MEDS: levETIRAcetam 500 MG TAB PO SCH (08:39)
[2021-05-17] MEDS: hydrALAZINE 25 MG TAB PO SCH ×2 (08:39→15:26)
[2021-05-17] MEDS: Sevelamer Carbonate 800 MG TAB PO SCH ×2 (08:39→11:46)
[2021-05-17] MEDS: Clopidogrel Bisulfate 75 MG TAB PO SCH (08:39)
[2021-05-17] MEDS: Pantoprazole 40 MG VIAL IVP SCH (08:39)
[2021-05-17] MEDS: Carvedilol 6.25 MG TAB PO SCH (08:39)
[2021-05-17] MEDS: Carvedilol 25 MG TAB PO SCH (08:41)
[2021-05-17] MEDS: Vancomycin HCl 750 MG in Sodium Chloride 0.9% 250 ML 250 ML IVPB SCH ×2 (13:20→13:44)
[2021-05-17 16:49] VITALS: BP 168/90; TEMP 98.9
== END 2021-05-17 17:10 | DRG 100 ==
LOC: ERS 15:59 → 2NO 19:24
PROVIDERS: ADMIT Family Medicine; ATTEND Internal Medicine
PROC: 5A1D70Z Performance of Urinary Filtration, Intermittent, Less than 6 Hours Per Day (ICD-10-PCS; principal; 2021-05-14)
DX: G40.909 Epilepsy, unspecified, not intractable, without status epilepticus (principal); N18.6 End stage renal disease; I12.0 Hypertensive chronic kidney disease with stage 5 chronic kidney disease or end stage renal disease; T82.7XXA Infection and inflammatory reaction due to other cardiac and vascular devices, implants and grafts, initial encounter; Z20.822 Contact with and (suspected) exposure to COVID-19; Y84.8 Other medical procedures as the cause of abnormal reaction of the patient, or of later complication, without mention of misadventure at the time of the procedure; D63.1 Anemia in chronic kidney disease; R79.89 Other specified abnormal findings of blood chemistry; F39 Unspecified mood [affective] disorder; R79.1 Abnormal coagulation profile; E87.6 Hypokalemia; Z91.14 Patient's other noncompliance with medication regimen; Z99.2 Dependence on renal dialysis; Z88.8 Allergy status to other drugs, medicaments and biological substances; Z87.891 Personal history of nicotine dependence
CPT/HCPCS: 36415; 36430; 70450; 76705; 80053; 80177; 80202; 80307; 82140; 82553; 83735; 83880; 84146; 84484; 85025; 85610; 85730; 86850; 86900; 86901; 90935; 93005; 96372; C9113; G0257; J0360; J1644; J3370; J7050; P9016; Q5105; U0003; U0005

== ENCOUNTER 2021-06-21 11:13 | Inpatient (IN) | payer OTHER ==
[2021-06-21 12:06] LABS: #Eosinphils 0.1 thou/uL (0.0-0.7); #Lymphocytes 0.9 thou/uL (1.20-3.40); #Monocytes 0.3 thou/uL (0.11-0.59); %Basophils 1.3 % (0.0-1.0); %Eosinophils 2.6 % (0.0-10.0); %Lymphocytes 27.6 % (21.0-51.0); %Monocytes 8.7 % (0.0-10.0); %Neutrophils 59.8 % (42.0-75.0); Hemoglobin 9.5 g/dL (14.0-18.0); Mean Corpuscular HGB CONC 33.4 g/dL (32.0-36.0); Mean Corpuscular Hemoglobin 31.6 pg (27.0-31.0); Mean Corpuscular Volume 94.8 fL (78.0-98.0); Mean Platelet Volume 6.8 fL (7.4-10.4); Platelet Count 178 thou/uL (130-400); RBC Distribution Width 14.3 % (11.5-14.5); Red Blood Cell (RBC) Count 3.01 mill/uL (4.70-6.10); White Blood Cell (WBC) Count 3.3 thou/uL (4.8-10.8)
[2021-06-21 12:18] LABS: Actual Bicarbonate (HCO3v) 28 mEq/L (22-28); Analyzer IN Cardio ER; Base Excess 5.5 mEq/L (-2.0 to +3.0); Calcium, Ionized (venous) 1.02 mmol/L (1.16-1.32); Chloride (VBG) 97 mmol/L (98-106); Hemoglobin (Hb) 9.2 g/dL (13.1-17.2); Potassium (VBG) 4.15 mmol/L (3.70-5.30); Sodium 133.6 mmol/L (133-146); pH (venous) 7.54 (7.32-7.43)
[2021-06-21 12:30] LABS: Acetaminophen Less than 6.0 mcg/mL (10.0-30.0); Alcohol Less than 10 mg/dL (Less than 10); Salicylate Less than 8.0 mg/dL (15.0-30.0)
[2021-06-21 12:36] LABS: ALT (SGPT) 19 U/L (8-55); AST (SGOT) 17 U/L (5-34); Albumin 3.1 g/dL (3.5-5.0); Alkaline Phosphatase 78 U/L (40-110); Anion Gap 15 mmol/L (10-20); BUN (Urea Nitrogen) 36 mg/dL (8.4-25.7); Bilirubin, Total 0.5 mg/dL (0.2-1.2); Calc. Creatinine Clearance 0 mL/min (70-130); Calcium 9.2 mg/dL (7.8-10.44); Carbon Dioxide 30 mmol/L (22-29); Chloride 96 mmol/L (98-107); Globulin 3.9 g/dL (2.4-3.5); Glucose 97 mg/dL (70-105); Potassium 4.4 mmol/L (3.5-5.1); Sodium 137 mmol/L (136-145)
[2021-06-21] MEDS ORDERED: Potassium Chloride 20 MEQ TAB PO SCH (17:30)
[2021-06-21] MEDS ORDERED: Potassium Chloride 20 MEQ in Premix Bag 1 BAG IVPB SCH (17:30)
[2021-06-21] MEDS ORDERED: cloNIDine 0.3 MG TAB PO PRN (17:35)
[2021-06-21] MEDS ORDERED: Lorazepam 2 MG/ML VIAL SLOW IVP PRN (17:50)
[2021-06-21 19:35] LABS: ALT (SGPT) 17 U/L (8-55); AST (SGOT) 17 U/L (5-34); Albumin 3.2 g/dL (3.5-5.0); Alkaline Phosphatase 89 U/L (40-110); Anion Gap 17 mmol/L (10-20); BUN (Urea Nitrogen) 37 mg/dL (8.4-25.7); Bilirubin, Total 0.5 mg/dL (0.2-1.2); CK (CPK) 38 U/L (30-200); Calc. Creatinine Clearance 0 mL/min (70-130); Calcium 9.7 mg/dL (7.8-10.44); Carbon Dioxide 25 mmol/L (22-29); Chloride 96 mmol/L (98-107); Globulin 4.6 g/dL (2.4-3.5); Glucose 86 mg/dL (70-105); Potassium 4.5 mmol/L (3.5-5.1); Protein, Total 7.8 g/dL (6.0-8.3); Sodium 133 mmol/L (136-145)
[2021-06-21] MEDS ORDERED: levETIRAcetam 500 MG TAB PO SCH (21:00)
[2021-06-21] MEDS: hydrALAZINE 25 MG TAB PO SCH (23:30)
[2021-06-21] MEDS: levETIRAcetam in NS 500 MG in Premix Bag 1 BAG IVPB SCH (23:30)
[2021-06-21] MEDS: Heparin 5,000 UNITS/ML VIAL SC SCH (23:30)
[2021-06-21 23:36] VITALS: BMI 22.6
[2021-06-22] MEDS ORDERED: hydrALAZINE 20 MG/ML VIAL SLOW IVP PRN (07:48)
[2021-06-22] MEDS: Heparin 5,000 UNITS/ML VIAL SC SCH (08:31)
[2021-06-22] MEDS: Sevelamer Carbonate 800 MG TAB PO SCH ×2 (08:31→11:30)
[2021-06-22] MEDS: hydrALAZINE 25 MG TAB PO SCH (08:32)
[2021-06-22] MEDS: levETIRAcetam in NS 500 MG in Premix Bag 1 BAG IVPB SCH (08:32)
[2021-06-22] MEDS ORDERED: Clopidogrel Bisulfate 75 MG TAB PO SCH (09:00)
[2021-06-22] MEDS ORDERED: Amlodipine 10 MG TAB PO SCH (09:00)
[2021-06-22 12:03] VITALS: BP 160/79; TEMP 97.9
[2021-06-22 17:16] LABS: SARS-CoV-2 PCR by NAA Not Detected (NotDetected)
== END 2021-06-22 13:40 | disposition home or self-care (01) | DRG 100 ==
LOC: ERS 11:13 → 2NO 16:55
PROVIDERS: ADMIT Internal Medicine; ATTEND Internal Medicine
PROC: 5A1D70Z Performance of Urinary Filtration, Intermittent, Less than 6 Hours Per Day (ICD-10-PCS; principal; 2021-06-22)
DX: G40.909 Epilepsy, unspecified, not intractable, without status epilepticus (principal); N18.6 End stage renal disease; I12.0 Hypertensive chronic kidney disease with stage 5 chronic kidney disease or end stage renal disease; G93.49 Other encephalopathy; D63.1 Anemia in chronic kidney disease; Z20.822 Contact with and (suspected) exposure to COVID-19; D69.6 Thrombocytopenia, unspecified; Z91.041 Radiographic dye allergy status; Z79.02 Long term (current) use of antithrombotics/antiplatelets; Z99.2 Dependence on renal dialysis; Z91.19 Patient's noncompliance with other medical treatment and regimen
CPT/HCPCS: 36415; 70450; 71045; 80053; 80177; 80307; 82140; 82550; 82805; 84145; 84146; 84484; 85025; 93005; 95816; 95819; J1644; J1953; U0003; U0005

== ENCOUNTER 2021-07-24 09:33 | Inpatient (IN) | payer OTHER ==
[2021-07-24] MEDS ORDERED: Labetalol HCl 100 MG/20 ML VIAL ONE (10:05)
[2021-07-24 11:14] LABS: #Monocytes 0.6 thou/uL (0.11-0.59); #Neutrophils 6.1 thou/uL (1.40-6.50); %Basophils 0.2 % (0.0-1.0); %Eosinophils 0.2 % (0.0-10.0); %Lymphocytes 13.5 % (21.0-51.0); %Monocytes 7.7 % (0.0-10.0); %Neutrophils 78.4 % (42.0-75.0); Mean Corpuscular HGB CONC 33.3 g/dL (32.0-36.0); Mean Corpuscular Hemoglobin 30.4 pg (27.0-31.0); Mean Corpuscular Volume 91.4 fL (78.0-98.0); Mean Platelet Volume 7.5 fL (7.4-10.4); Platelet Count 144 thou/uL (130-400); RBC Distribution Width 14.9 % (11.5-14.5); Red Blood Cell (RBC) Count 2.95 mill/uL (4.70-6.10); White Blood Cell (WBC) Count 7.7 thou/uL (4.8-10.8)
[2021-07-24 11:29] LABS: Acetaminophen Less than 6.0 mcg/mL (10.0-30.0); Alcohol Less than 10 mg/dL (Less than 10); Salicylate Less than 8.0 mg/dL (15.0-30.0)
[2021-07-24 11:39] LABS: Calcium 9.9 mg/dL (7.8-10.44); Chloride 100 mmol/L (98-107); Sodium 140 mmol/L (136-145)
[2021-07-24 11:59] LABS: ALT (SGPT) 25 U/L (8-55); AST (SGOT) 33 U/L (5-34); Albumin 3.6 g/dL (3.5-5.0); Alkaline Phosphatase 98 U/L (40-110); Anion Gap 30 mmol/L (10-20); BUN (Urea Nitrogen) 89 mg/dL (8.4-25.7); Calc. Creatinine Clearance 0 mL/min (70-130); Carbon Dioxide 17 mmol/L (22-29); Globulin 4.3 g/dL (2.4-3.5); Glucose 101 mg/dL (70-105); Protein, Total 7.9 g/dL (6.0-8.3)
[2021-07-24] MEDS ORDERED: Cefepime 2 GM VIAL ONE (12:17)
[2021-07-24 12:28] LABS: Potassium 6.6 mmol/L (3.5-5.1)
[2021-07-24] MEDS ORDERED: Insulin Regular 300 UNITS/3 ML VIAL ONE (14:09)
[2021-07-24] MEDS ORDERED: Sodium Bicarb 50 MEQ/50 ML Abboject 8.4% SYRINGE ONE (14:09)
[2021-07-24] MEDS ORDERED: Dextrose 50% Abboject 50 ML SYRINGE ONE ×2 (14:09→14:10)
[2021-07-24] MEDS ORDERED: Calcium Gluc 4.6 MEQ/10 ML (100 MG/ML) ONE (14:13)
[2021-07-24 14:28] LABS: Lactic Acid 2.7 mmol/L (0.5-2.2)
[2021-07-24 14:41] LABS: Troponin I 0.402 ng/mL (< 0.028)
[2021-07-24] MEDS ORDERED: Vancomycin 1 GM/200 ML BAG ONE (14:42)
[2021-07-24 18:00] LABS: Troponin I 0.429 ng/mL (< 0.028)
[2021-07-24] MEDS: hydrALAZINE 20 MG/ML VIAL SLOW IVP PRN (19:49)
[2021-07-24] MEDS: Famotidine/PF 20 mg/2ml Vial SLOW IVP SCH (19:51)
[2021-07-24] MEDS: Carvedilol 6.25 MG TAB PO SCH (19:56)
[2021-07-24] MEDS: hydrALAZINE 25 MG TAB PO SCH (19:57)
[2021-07-24] MEDS ORDERED: Labetalol HCl 100 MG/20 ML VIAL SLOW IVP PRN (23:10)
[2021-07-24] MEDS ORDERED: Labetalol HCl 100 MG/20 ML VIAL SLOW IVP SCH (23:15)
[2021-07-25] MEDS: hydrALAZINE 20 MG/ML VIAL SLOW IVP PRN ×2 (01:13→04:13)
[2021-07-25 04:19] LABS: #Eosinphils 0.1 thou/uL (0.0-0.7); #Lymphocytes 0.9 thou/uL (1.20-3.40); #Monocytes 0.6 thou/uL (0.11-0.59); #Neutrophils 5.6 thou/uL (1.40-6.50); %Basophils 0.1 % (0.0-1.0); %Eosinophils 0.8 % (0.0-10.0); %Lymphocytes 12.1 % (21.0-51.0); %Monocytes 8.8 % (0.0-10.0); %Neutrophils 78.1 % (42.0-75.0); Anion Gap 20 mmol/L (10-20); BUN (Urea Nitrogen) 39 mg/dL (8.4-25.7); Calc. Creatinine Clearance 9 mL/min (70-130); Calcium 9.8 mg/dL (7.8-10.44); Carbon Dioxide 23 mmol/L (22-29); Chloride 101 mmol/L (98-107); Glucose 67 mg/dL (70-105); Hemoglobin 8.7 g/dL (14.0-18.0); Mean Corpuscular HGB CONC 32.1 g/dL (32.0-36.0); Mean Corpuscular Hemoglobin 30.1 pg (27.0-31.0); Mean Corpuscular Volume 93.7 fL (78.0-98.0); Platelet Count 137 thou/uL (130-400); Potassium 4.8 mmol/L (3.5-5.1); RBC Distribution Width 15.1 % (11.5-14.5); Sodium 139 mmol/L (136-145); White Blood Cell (WBC) Count 7.2 thou/uL (4.8-10.8)
[2021-07-25] MEDS ORDERED: Dextrose 50% Abboject 50 ML SYRINGE ONE (04:36)
[2021-07-25] MEDS ORDERED: Dextrose 50% Abboject 50 ML SYRINGE SLOW IVP SCH (05:00)
[2021-07-25] MEDS ORDERED: Enoxaparin Sodium 30 MG/0.3 ML SYRINGE SC SCH (09:00)
[2021-07-25] MEDS ORDERED: FLU VACC QS2021-22(6MOS UP)/PF 60 MCG/0.5 ML SYRINGE IM ONE (09:00)
[2021-07-25] MEDS ORDERED: cloNIDine 0.3mg/24 Hour PATCH TD SCH (09:00)
[2021-07-25] MEDS: Carvedilol 6.25 MG TAB PO SCH ×2 (09:59→20:44)
[2021-07-25] MEDS: Amlodipine 10 MG TAB PO SCH (09:59)
[2021-07-25] MEDS: hydrALAZINE 25 MG TAB PO SCH ×3 (10:00→20:43)
[2021-07-25 14:29] LABS: Lactic Acid 1.4 mmol/L (0.5-2.2)
[2021-07-25] MEDS: Famotidine/PF 20 mg/2ml Vial SLOW IVP SCH (20:43)
[2021-07-26 03:56] LABS: #Eosinphils 0.1 thou/uL (0.0-0.7); #Lymphocytes 0.9 thou/uL (1.20-3.40); #Monocytes 0.4 thou/uL (0.11-0.59); #Neutrophils 4.3 thou/uL (1.40-6.50); %Basophils 0.1 % (0.0-1.0); %Eosinophils 1.2 % (0.0-10.0); %Lymphocytes 15.7 % (21.0-51.0); %Monocytes 7.7 % (0.0-10.0); %Neutrophils 75.4 % (42.0-75.0); Hemoglobin 9.5 g/dL (14.0-18.0); Mean Corpuscular HGB CONC 32.7 g/dL (32.0-36.0); Mean Corpuscular Hemoglobin 30.3 pg (27.0-31.0); Mean Corpuscular Volume 92.7 fL (78.0-98.0); Mean Platelet Volume 7.9 fL (7.4-10.4); Platelet Count 128 thou/uL (130-400); RBC Distribution Width 15.2 % (11.5-14.5); Red Blood Cell (RBC) Count 3.12 mill/uL (4.70-6.10); White Blood Cell (WBC) Count 5.7 thou/uL (4.8-10.8)
[2021-07-26 04:11] LABS: Hemoglobin A1c 4.1 % (4.0-6.0)
[2021-07-26 04:26] LABS: Anion Gap 20 mmol/L (10-20); BUN (Urea Nitrogen) 56 mg/dL (8.4-25.7); Calc. Creatinine Clearance 7 mL/min (70-130); Calcium 9.8 mg/dL (7.8-10.44); Carbon Dioxide 22 mmol/L (22-29); Chloride 100 mmol/L (98-107); Glucose 76 mg/dL (70-105); Potassium 4.9 mmol/L (3.5-5.1); Sodium 137 mmol/L (136-145)
[2021-07-26] MEDS: hydrALAZINE 20 MG/ML VIAL SLOW IVP PRN (04:31)
[2021-07-26] MEDS: Amlodipine 10 MG TAB PO SCH (09:16)
[2021-07-26] MEDS: Carvedilol 6.25 MG TAB PO SCH ×2 (09:16→21:04)
[2021-07-26] MEDS: hydrALAZINE 25 MG TAB PO SCH ×4 (09:17→21:05)
[2021-07-26] MEDS: Heparin 5,000 UNITS/ML VIAL SC SCH ×2 (09:17→21:04)
[2021-07-26 15:01] VITALS: BMI 23.4
[2021-07-26] MEDS: Famotidine/PF 20 mg/2ml Vial SLOW IVP SCH (21:03)
[2021-07-27] MEDS: Carvedilol 6.25 MG TAB PO SCH ×2 (09:27→20:49)
[2021-07-27] MEDS: hydrALAZINE 25 MG TAB PO SCH ×3 (09:27→20:50)
[2021-07-27] MEDS: Heparin 5,000 UNITS/ML VIAL SC SCH ×2 (09:27→20:50)
[2021-07-27] MEDS: Amlodipine 10 MG TAB PO SCH (09:27)
[2021-07-27 11:19] LABS: #Eosinphils 0.1 thou/uL (0.0-0.7); #Lymphocytes 0.9 thou/uL (1.20-3.40); #Monocytes 0.7 thou/uL (0.11-0.59); %Basophils 0.6 % (0.0-1.0); %Eosinophils 1.3 % (0.0-10.0); %Lymphocytes 18.7 % (21.0-51.0); %Monocytes 14.1 % (0.0-10.0); %Neutrophils 65.3 % (42.0-75.0); Hemoglobin 8.1 g/dL (14.0-18.0); Mean Corpuscular HGB CONC 33.6 g/dL (32.0-36.0); Mean Corpuscular Hemoglobin 30.9 pg (27.0-31.0); Mean Corpuscular Volume 91.9 fL (78.0-98.0); Mean Platelet Volume 7.9 fL (7.4-10.4); Platelet Count 128 thou/uL (130-400); RBC Distribution Width 14.3 % (11.5-14.5); Red Blood Cell (RBC) Count 2.63 mill/uL (4.70-6.10); White Blood Cell (WBC) Count 4.6 thou/uL (4.8-10.8)
[2021-07-27 11:38] LABS: Anion Gap 15 mmol/L (10-20); BUN (Urea Nitrogen) 37 mg/dL (8.4-25.7); Calc. Creatinine Clearance 10 mL/min (70-130); Calcium 9.5 mg/dL (7.8-10.44); Carbon Dioxide 28 mmol/L (22-29); Chloride 98 mmol/L (98-107); Glucose 107 mg/dL (70-105); Sodium 137 mmol/L (136-145)
[2021-07-27] MEDS: Sevelamer Carbonate 800 MG TAB PO SCH (18:00)
[2021-07-27] MEDS: levETIRAcetam 500 MG TAB PO SCH (20:49)
[2021-07-27] MEDS: Famotidine/PF 20 mg/2ml Vial SLOW IVP SCH (20:51)
[2021-07-28 05:22] LABS: Anion Gap 15 mmol/L (10-20); BUN (Urea Nitrogen) 44 mg/dL (8.4-25.7); Calc. Creatinine Clearance 9 mL/min (70-130); Calcium 9.2 mg/dL (7.8-10.44); Carbon Dioxide 28 mmol/L (22-29); Chloride 95 mmol/L (98-107); Glucose 88 mg/dL (70-105); Potassium 3.8 mmol/L (3.5-5.1); Sodium 134 mmol/L (136-145)
[2021-07-28 05:34] LABS: Eosinophils 8 % (0-10); Hemoglobin 7.8 g/dL (14.0-18.0); Lymphocytes 24 % (21-51); MDiff Complete? YES; Mean Corpuscular HGB CONC 33.1 g/dL (32.0-36.0); Mean Corpuscular Hemoglobin 30.4 pg (27.0-31.0); Mean Corpuscular Volume 91.8 fL (78.0-98.0); Mean Platelet Volume 7.9 fL (7.4-10.4); Monocytes 6 % (0-10); Neutrophil 61 % (42-75); Platelet Count 127 thou/uL (130-400); Platelet Morphology Comment Appears Decreased; RBC Distribution Width 14.5 % (11.5-14.5); RBC Morphology Normal; Reactive Lymphocytes 1 % (0-10); Red Blood Cell (RBC) Count 2.57 mill/uL (4.70-6.10); White Blood Cell (WBC) Count 4.2 thou/uL (4.8-10.8)
[2021-07-28] MEDS: Sevelamer Carbonate 800 MG TAB PO SCH ×3 (09:04→15:54)
[2021-07-28] MEDS: hydrALAZINE 25 MG TAB PO SCH ×3 (09:04→20:13)
[2021-07-28] MEDS: Amlodipine 10 MG TAB PO SCH (09:04)
[2021-07-28] MEDS: Clopidogrel Bisulfate 75 MG TAB PO SCH (09:04)
[2021-07-28] MEDS: Carvedilol 6.25 MG TAB PO SCH ×2 (09:04→20:13)
[2021-07-28] MEDS: Heparin 5,000 UNITS/ML VIAL SC SCH ×2 (09:05→20:15)
[2021-07-28] MEDS: levETIRAcetam 500 MG TAB PO SCH ×2 (09:05→20:13)
[2021-07-28] MEDS ORDERED: hydrALAZINE 20 MG/ML VIAL SLOW IVP PRN (15:53)
[2021-07-28] MEDS: Famotidine/PF 20 mg/2ml Vial SLOW IVP SCH (20:14)
[2021-07-29] MEDS: Carvedilol 6.25 MG TAB PO SCH ×2 (09:43→21:31)
[2021-07-29] MEDS: Clopidogrel Bisulfate 75 MG TAB PO SCH (09:43)
[2021-07-29] MEDS: Sevelamer Carbonate 800 MG TAB PO SCH ×3 (09:43→15:53)
[2021-07-29] MEDS: Amlodipine 10 MG TAB PO SCH (09:43)
[2021-07-29] MEDS: levETIRAcetam 500 MG TAB PO SCH ×2 (09:43→21:32)
[2021-07-29] MEDS: Heparin 5,000 UNITS/ML VIAL SC SCH ×2 (09:43→21:34)
[2021-07-29] MEDS: hydrALAZINE 25 MG TAB PO SCH ×3 (09:43→21:34)
[2021-07-29] MEDS: Famotidine 20 MG TAB PO SCH (21:32)
[2021-07-30 06:23] LABS: #Eosinphils 0.1 thou/uL (0.0-0.7); #Lymphocytes 0.9 thou/uL (1.20-3.40); #Monocytes 0.4 thou/uL (0.11-0.59); #Neutrophils 2.1 thou/uL (1.40-6.50); %Basophils 0.4 % (0.0-1.0); %Eosinophils 3.2 % (0.0-10.0); %Monocytes 10.1 % (0.0-10.0); %Neutrophils 60.2 % (42.0-75.0); Hemoglobin 7.7 g/dL (14.0-18.0); Mean Corpuscular HGB CONC 33.3 g/dL (32.0-36.0); Mean Corpuscular Hemoglobin 30.3 pg (27.0-31.0); Mean Platelet Volume 7.8 fL (7.4-10.4); Platelet Count 128 thou/uL (130-400); RBC Distribution Width 14.7 % (11.5-14.5); Red Blood Cell (RBC) Count 2.54 mill/uL (4.70-6.10); White Blood Cell (WBC) Count 3.5 thou/uL (4.8-10.8)
[2021-07-30 06:41] LABS: Anion Gap 14 mmol/L (10-20); BUN (Urea Nitrogen) 31 mg/dL (8.4-25.7); Calc. Creatinine Clearance 10 mL/min (70-130); Calcium 8.9 mg/dL (7.8-10.44); Carbon Dioxide 28 mmol/L (22-29); Chloride 101 mmol/L (98-107); Glucose 84 mg/dL (70-105); Potassium 4.2 mmol/L (3.5-5.1); Sodium 139 mmol/L (136-145)
[2021-07-30] MEDS: hydrALAZINE 25 MG TAB PO SCH ×3 (09:21→20:03)
[2021-07-30] MEDS: Sevelamer Carbonate 800 MG TAB PO SCH ×3 (09:21→16:47)
[2021-07-30] MEDS: Amlodipine 10 MG TAB PO SCH (09:21)
[2021-07-30] MEDS: Heparin 5,000 UNITS/ML VIAL SC SCH ×2 (09:22→20:04)
[2021-07-30] MEDS: levETIRAcetam 500 MG TAB PO SCH ×2 (09:22→20:04)
[2021-07-30] MEDS: Clopidogrel Bisulfate 75 MG TAB PO SCH (09:22)
[2021-07-30] MEDS: Carvedilol 6.25 MG TAB PO SCH ×2 (09:22→20:03)
[2021-07-30 20:04] VITALS: BP 157/74
[2021-07-30] MEDS: Famotidine 20 MG TAB PO SCH (20:04)
[2021-07-31 08:29] VITALS: TEMP 98
[2021-07-31] MEDS: levETIRAcetam 500 MG TAB PO SCH (09:19)
[2021-07-31] MEDS: Amlodipine 10 MG TAB PO SCH (09:19)
[2021-07-31] MEDS: Sevelamer Carbonate 800 MG TAB PO SCH (09:19)
[2021-07-31] MEDS: Clopidogrel Bisulfate 75 MG TAB PO SCH (09:19)
[2021-07-31] MEDS: hydrALAZINE 25 MG TAB PO SCH (09:20)
[2021-07-31] MEDS: Carvedilol 6.25 MG TAB PO SCH (09:20)
[2021-07-31] MEDS: Heparin 5,000 UNITS/ML VIAL SC SCH (09:20)
[2021-07-31] MEDS ORDERED: Epoetin (ESRD) 10,000 UNITS/ML VIAL SC SCH (09:45)
[2021-07-31] MEDS ORDERED: EPOETIN ALFA-EPBX (ESRD) 10,000 UNIT/ML VIAL SC SCH (12:00)
== END 2021-07-31 10:05 | disposition home or self-care (01) | DRG 682 ==
LOC: ERS 09:33 → ERHOLD 13:15 → IMCU/EMU 16:25
PROVIDERS: ADMIT Internal Medicine; ATTEND Family Medicine
PROC: 5A1D70Z Performance of Urinary Filtration, Intermittent, Less than 6 Hours Per Day (ICD-10-PCS; principal; 2021-07-24)
DX: I12.0 Hypertensive chronic kidney disease with stage 5 chronic kidney disease or end stage renal disease (principal); G92.9 Unspecified toxic encephalopathy; N18.6 End stage renal disease; I16.1 Hypertensive emergency; E87.2 Acidosis; D63.1 Anemia in chronic kidney disease; R73.9 Hyperglycemia, unspecified; G40.909 Epilepsy, unspecified, not intractable, without status epilepticus; E87.5 Hyperkalemia; E87.70 Fluid overload, unspecified; Z99.2 Dependence on renal dialysis; Z91.041 Radiographic dye allergy status; Z79.899 Other long term (current) drug therapy; Z91.15 Patient's noncompliance with renal dialysis
CPT/HCPCS: 36415; 36416; 70450; 71045; 80048; 80053; 80307; 82553; 83036; 83605; 84484; 85025; 86850; 86900; 86901; 87040; 90935; 93005; G0257; J0360; J0610; J0692; J1644; J1650; J1815; J3370; J3490; S0028

== ENCOUNTER 2021-11-03 19:55 | Emergency (ER) | payer OTHER ==
[2021-11-03 20:52] LABS: #Eosinphils 0.1 thou/uL (0.0-0.7); #Lymphocytes 0.7 thou/uL (1.20-3.40); #Monocytes 0.4 thou/uL (0.11-0.59); #Neutrophils 2.1 thou/uL (1.40-6.50); %Basophils 0.7 % (0.0-1.0); %Eosinophils 2.2 % (0.0-10.0); %Lymphocytes 21.6 % (21.0-51.0); %Monocytes 13.1 % (0.0-10.0); %Neutrophils 62.5 % (42.0-75.0); Hemoglobin 8.3 g/dL (14.0-18.0); Mean Corpuscular HGB CONC 32.1 g/dL (32.0-36.0); Mean Corpuscular Hemoglobin 32.5 pg (27.0-31.0); Mean Platelet Volume 7.8 fL (7.4-10.4); Platelet Count 149 thou/uL (130-400); Red Blood Cell (RBC) Count 2.54 mill/uL (4.70-6.10); White Blood Cell (WBC) Count 3.3 thou/uL (4.8-10.8)
[2021-11-03 21:27] LABS: ALT (SGPT) 16 U/L (8-55); AST (SGOT) 21 U/L (5-34); Albumin 3.5 g/dL (3.5-5.0); Alkaline Phosphatase 128 U/L (40-110); Anion Gap 17 mmol/L (10-20); BUN (Urea Nitrogen) 45 mg/dL (8.4-25.7); Bilirubin, Total 0.6 mg/dL (0.2-1.2); Calc. Creatinine Clearance 0 mL/min (70-130); Calcium 9.5 mg/dL (7.8-10.44); Carbon Dioxide 31 mmol/L (22-29); Chloride 97 mmol/L (98-107); Globulin 4.1 g/dL (2.4-3.5); Glucose 88 mg/dL (70-105); Potassium 4.9 mmol/L (3.5-5.1); Protein, Total 7.6 g/dL (6.0-8.3); Sodium 140 mmol/L (136-145)
== END 2021-11-03 21:54 | disposition home or self-care (01) ==
LOC: ERS 19:55
DX: I12.0 Hypertensive chronic kidney disease with stage 5 chronic kidney disease or end stage renal disease (principal); N18.6 End stage renal disease; R60.0 Localized edema
CPT/HCPCS: 36415; 71045; 80053; 83880; 85025

== ENCOUNTER 2022-02-19 11:21 | Inpatient (IN) | payer OTHER, SELFPAY ==
[~2022-02-19 11:21] MED LIST changes: -Heparin 10,000 UNITS/ 10 ML VIAL ONE; +Iopamidol 370 76% 100 ML VIAL ONE
[2022-02-19 11:36] LABS: Actual Bicarbonate (HCO3v) 27 mEq/L (22-28); Analyzer IN Cardio ER; Base Excess 2.3 mEq/L (-2.0 to +3.0); Calcium, Ionized (venous) 1.12 mmol/L (1.16-1.32); Chloride (VBG) 96 mmol/L (98-106); Hemoglobin (Hb) 10.5 g/dL (13.1-17.2); Potassium (VBG) 5.21 mmol/L (3.70-5.30); Sodium 136.3 mmol/L (133-146); pH (venous) 7.44 (7.32-7.43)
[2022-02-19 11:41] LABS: Mean Corpuscular HGB CONC 32.6 g/dL (32.0-36.0); Mean Platelet Volume 7.7 fL (7.4-10.4); Platelet Count 132 thou/uL (130-400); RBC Distribution Width 14.8 % (11.5-14.5); Red Blood Cell (RBC) Count 3.05 mill/uL (4.70-6.10); White Blood Cell (WBC) Count 4.7 thou/uL (4.8-10.8)
[2022-02-19 12:02] LABS: INR-International Normal Ratio 1.4; PTT 43.4 sec (22.9-36.1); Prothrombin Time 17.2 sec (12.0-14.7)
[2022-02-19] MEDS ORDERED: methylPREDNISolone Sod Succ 40 MG VIAL ONE (12:11)
[2022-02-19] MEDS ORDERED: diphenhydrAMINE 50 MG/ML VIAL ONE (12:11)
[2022-02-19 12:12] LABS: ALT (SGPT) 9 U/L (8-55); AST (SGOT) 10 U/L (5-34); Albumin 3.5 g/dL (3.5-5.0); Alkaline Phosphatase 68 U/L (40-110); Anion Gap 21 mmol/L (10-20); BUN (Urea Nitrogen) 70 mg/dL (8.4-25.7); Bilirubin, Total 0.7 mg/dL (0.2-1.2); CK (CPK) 98 U/L (30-200); Calc. Creatinine Clearance 0 mL/min (70-130); Calcium 9.7 mg/dL (7.8-10.44); Carbon Dioxide 25 mmol/L (22-29); Chloride 96 mmol/L (98-107); Globulin 4.1 g/dL (2.4-3.5); Glucose 91 mg/dL (70-105); Potassium 5.4 mmol/L (3.5-5.1); Protein, Total 7.6 g/dL (6.0-8.3); Sodium 137 mmol/L (136-145)
[2022-02-19 12:14] LABS: Band 2 % (5-11); Lymphocytes 19 % (21-51); MDiff Complete? YES; Monocytes 11 % (0-10); Neutrophil 68 % (42-75); Platelet Morphology Comment Appears Adequate; RBC Morphology Normal
[2022-02-19 12:20] LABS: CKMB 4.6 ng/mL (0-6.6)
[2022-02-19] MEDS ORDERED: Famotidine 40 MG/4 ML VIAL SLOW IVP SCH (12:30)
[2022-02-19] MEDS ORDERED: Ondansetron PF 4 MG/2 ML Vial IVP PRN (15:28)
[2022-02-19 15:59] LABS: Troponin I 0.051 ng/mL (< 0.028)
[2022-02-19 18:07] VITALS: BMI 24.8
[2022-02-19 18:55] LABS: Troponin I 0.052 ng/mL (< 0.028)
[2022-02-19 23:01] LABS: HBSAB Concentration Less than 8.00 mIU/mL; HBSAg Index 0.27 S/CO (0-0.99); Hep B Surf AB Non-Reactive (NonReactive); Hep B Surf Ag Non-Reactive S/CO (NonReactive)
[2022-02-19 23:04] LABS: Hep C IgG Ab Reflex HepC Qnt (NonReactive); Hep C Index 14.19 S/CO (0-0.79)
[2022-02-19 23:18] LABS: Hep B Core Total Ab Reactive (NonReactive); Hep B Core Total Index 8.15 S/CO (0-0.79)
[2022-02-20 05:42] LABS: #Lymphocytes 0.6 thou/uL (1.20-3.40); #Monocytes 0.6 thou/uL (0.11-0.59); #Neutrophils 4.5 thou/uL (1.40-6.50); %Eosinophils 0.3 % (0.0-10.0); %Monocytes 10.6 % (0.0-10.0); %Neutrophils 78.1 % (42.0-75.0); Hemoglobin 10.3 g/dL (14.0-18.0); Mean Corpuscular HGB CONC 32.5 g/dL (32.0-36.0); Mean Corpuscular Hemoglobin 32.7 pg (27.0-31.0); Mean Platelet Volume 7.7 fL (7.4-10.4); Platelet Count 141 thou/uL (130-400); Red Blood Cell (RBC) Count 3.15 mill/uL (4.70-6.10); White Blood Cell (WBC) Count 5.7 thou/uL (4.8-10.8)
[2022-02-20 06:00] LABS: Anion Gap 16 mmol/L (10-20); BUN (Urea Nitrogen) 35 mg/dL (8.4-25.7); Calc. Creatinine Clearance 11 mL/min (70-130); Calcium 9.7 mg/dL (7.8-10.44); Carbon Dioxide 30 mmol/L (22-29); Chloride 96 mmol/L (98-107); Glucose 84 mg/dL (70-105); Potassium 4.6 mmol/L (3.5-5.1); Sodium 137 mmol/L (136-145)
[2022-02-20] MEDS: Acetaminophen 325 MG TAB PO PRN (12:58)
[2022-02-20] MEDS ORDERED: Clopidogrel Bisulfate 75 MG TAB PO SCH (14:45)
[2022-02-20] MEDS ORDERED: Aspirin 81 mg Enteric Coated Tablet PO SCH (14:45)
[2022-02-20] MEDS: hydrALAZINE 25 MG TAB PO SCH ×2 (14:51→21:50)
[2022-02-20] MEDS: cloNIDine 0.3 MG TAB PO PRN (16:20)
[2022-02-20] MEDS ORDERED: CALCIUM ACETATE 667 MG/5 ML PO SCH (17:00)
[2022-02-20] MEDS: Heparin 5,000 UNITS/ML VIAL SC SCH (21:50)
[2022-02-20] MEDS: Lacosamide 50 mg Tablet PO SCH (21:50)
[2022-02-20] MEDS: Carvedilol 6.25 MG TAB PO SCH (21:50)
[2022-02-21] MEDS: cloNIDine 0.3 MG TAB PO PRN ×3 (03:36→23:37)
[2022-02-21 05:55] LABS: #Lymphocytes 0.5 thou/uL (1.20-3.40); #Monocytes 0.5 thou/uL (0.11-0.59); #Neutrophils 3.1 thou/uL (1.40-6.50); %Basophils 0.3 % (0.0-1.0); %Eosinophils 0.7 % (0.0-10.0); %Lymphocytes 12.1 % (21.0-51.0); %Monocytes 11.8 % (0.0-10.0); %Neutrophils 75.1 % (42.0-75.0); Hemoglobin 10.5 g/dL (14.0-18.0); Mean Corpuscular Hemoglobin 32.5 pg (27.0-31.0); Mean Platelet Volume 7.3 fL (7.4-10.4); Platelet Count 165 thou/uL (130-400); RBC Distribution Width 14.9 % (11.5-14.5); Red Blood Cell (RBC) Count 3.24 mill/uL (4.70-6.10); White Blood Cell (WBC) Count 4.1 thou/uL (4.8-10.8)
[2022-02-21 06:42] LABS: Anion Gap 21 mmol/L (10-20); BUN (Urea Nitrogen) 57 mg/dL (8.4-25.7); Calc. Creatinine Clearance 9 mL/min (70-130); Carbon Dioxide 25 mmol/L (22-29); Chloride 95 mmol/L (98-107); Potassium 4.7 mmol/L (3.5-5.1); Sodium 136 mmol/L (136-145)
[2022-02-21 06:43] LABS: Calcium 10.3 mg/dL (7.8-10.44); Glucose 75 mg/dL (70-105)
[2022-02-21] MEDS: Acetaminophen 325 MG TAB PO PRN (09:12)
[2022-02-21] MEDS: Amlodipine 10 MG TAB PO SCH (09:13)
[2022-02-21] MEDS: Lacosamide 50 mg Tablet PO SCH ×2 (09:14→20:50)
[2022-02-21] MEDS: Carvedilol 6.25 MG TAB PO SCH ×2 (09:14→20:51)
[2022-02-21] MEDS: Aspirin 81 mg Enteric Coated Tablet PO SCH (09:14)
[2022-02-21] MEDS: hydrALAZINE 25 MG TAB PO SCH ×3 (09:14→20:51)
[2022-02-21] MEDS: Heparin 5,000 UNITS/ML VIAL SC SCH ×3 (09:15→20:50)
[2022-02-21] MEDS: Clopidogrel Bisulfate 75 MG TAB PO SCH (09:15)
[2022-02-21] MEDS ORDERED: levETIRAcetam 500 MG TAB PO SCH (11:45)
[2022-02-21] MEDS: HYDROcodone/Acetaminophen 5/325 mg Tablet PO PRN ×2 (11:59→23:36)
[2022-02-22 05:56] LABS: Anion Gap 17 mmol/L (10-20); BUN (Urea Nitrogen) 36 mg/dL (8.4-25.7); Calc. Creatinine Clearance 11 mL/min (70-130); Calcium 9.5 mg/dL (7.8-10.44); Carbon Dioxide 28 mmol/L (22-29); Chloride 95 mmol/L (98-107); Glucose 74 mg/dL (70-105); Potassium 4.3 mmol/L (3.5-5.1); Sodium 136 mmol/L (136-145)
[2022-02-22] MEDS: hydrALAZINE 25 MG TAB PO SCH ×3 (08:52→21:00)
[2022-02-22] MEDS: Lacosamide 50 mg Tablet PO SCH ×2 (08:52→21:00)
[2022-02-22] MEDS: levETIRAcetam 500 MG TAB PO SCH (08:52)
[2022-02-22] MEDS: Aspirin 81 mg Enteric Coated Tablet PO SCH (08:52)
[2022-02-22] MEDS: Amlodipine 10 MG TAB PO SCH (08:52)
[2022-02-22] MEDS: Clopidogrel Bisulfate 75 MG TAB PO SCH (08:52)
[2022-02-22] MEDS: Heparin 5,000 UNITS/ML VIAL SC SCH ×3 (08:52→21:00)
[2022-02-22] MEDS: Carvedilol 6.25 MG TAB PO SCH ×2 (08:53→21:00)
[2022-02-22] MEDS ORDERED: ADENOSINE 60 MG/20 ML VIAL ONE (10:03)
[2022-02-22] MEDS: HYDROcodone/Acetaminophen 5/325 mg Tablet PO PRN ×2 (14:11→23:16)
[2022-02-22] MEDS: cloNIDine 0.3 MG TAB PO PRN (21:01)
[2022-02-23] MEDS: cloNIDine 0.3 MG TAB PO PRN (03:52)
[2022-02-23] MEDS: Clopidogrel Bisulfate 75 MG TAB PO SCH (08:37)
[2022-02-23] MEDS: Carvedilol 6.25 MG TAB PO SCH (08:37)
[2022-02-23] MEDS: hydrALAZINE 25 MG TAB PO SCH ×2 (08:37→15:17)
[2022-02-23] MEDS: Lacosamide 50 mg Tablet PO SCH (08:38)
[2022-02-23] MEDS: levETIRAcetam 500 MG TAB PO SCH (08:38)
[2022-02-23] MEDS: Heparin 5,000 UNITS/ML VIAL SC SCH ×2 (08:38→15:20)
[2022-02-23] MEDS: Amlodipine 10 MG TAB PO SCH (08:38)
[2022-02-23] MEDS: Aspirin 81 mg Enteric Coated Tablet PO SCH (08:38)
[2022-02-23] MEDS: HYDROcodone/Acetaminophen 5/325 mg Tablet PO PRN ×2 (08:41→15:19)
[2022-02-23] MEDS ORDERED: Losartan 25 MG TAB PO SCH (09:00)
[2022-02-23 15:20] VITALS: BP 189/96
[2022-02-23 16:34] VITALS: TEMP 97.4
== END 2022-02-23 17:23 | disposition home or self-care (01) | DRG 947 ==
LOC: ERS 11:21 → OBSVTOIN 15:24 → NEURO 15:24
PROVIDERS: ADMIT Hospitalist; ATTEND Internal Medicine
PROC: 5A1D70Z Performance of Urinary Filtration, Intermittent, Less than 6 Hours Per Day (ICD-10-PCS; 2022-02-19)
PROC: 4A10X4Z Monitoring of Central Nervous Electrical Activity, External Approach (ICD-10-PCS; principal; 2022-02-20)
PROC: 5A1D70Z Performance of Urinary Filtration, Intermittent, Less than 6 Hours Per Day (ICD-10-PCS; 2022-02-21)
DX: R41.0 Disorientation, unspecified (principal); N18.6 End stage renal disease; G93.40 Encephalopathy, unspecified; I12.0 Hypertensive chronic kidney disease with stage 5 chronic kidney disease or end stage renal disease; R41.82 Altered mental status, unspecified; G40.909 Epilepsy, unspecified, not intractable, without status epilepticus; D53.9 Nutritional anemia, unspecified; E87.5 Hyperkalemia; D63.1 Anemia in chronic kidney disease; E88.09 Other disorders of plasma-protein metabolism, not elsewhere classified; D69.6 Thrombocytopenia, unspecified; Z20.822 Contact with and (suspected) exposure to COVID-19; Z90.49 Acquired absence of other specified parts of digestive tract; Z88.8 Allergy status to other drugs, medicaments and biological substances; Z86.73 Personal history of transient ischemic attack (TIA), and cerebral infarction without residual deficits; Z79.899 Other long term (current) drug therapy; Z99.2 Dependence on renal dialysis
CPT/HCPCS: 36415; 51701; 70450; 70496; 70498; 70551; 71045; 78452; 80048; 80053; 82140; 82550; 82553; 82805; 84443; 84484; 85025; 85610; 85730; 86704; 87340; 90935; 93005; 93010; 93017; 95712; 95819; 95957; 96374; 96375; A9500; G0257; J0153; J1200; J1644; J2920; Q9967; U0003; U0005

== ENCOUNTER 2022-02-28 09:14 | Emergency (ER) | payer OTHER ==
[2022-02-28 09:43] LABS: Hemoglobin 10.1 g/dL (14.0-18.0); Mean Corpuscular HGB CONC 32.7 g/dL (32.0-36.0); Mean Corpuscular Hemoglobin 32.9 pg (27.0-31.0); Platelet Count 153 thou/uL (130-400); RBC Distribution Width 14.2 % (11.5-14.5); Red Blood Cell (RBC) Count 3.07 mill/uL (4.70-6.10)
[2022-02-28 09:52] LABS: Acetaminophen Less than 10.0 mcg/mL (10.0-30.0); Alcohol Less than 10 mg/dL (Less than 10); CK (CPK) 60 U/L (30-200); Lipase 42 U/L (8-78); Salicylate Less than 8.0 mg/dL (15.0-30.0)
[2022-02-28 09:56] LABS: ALT (SGPT) 12 U/L (8-55); AST (SGOT) 12 U/L (5-34); Albumin 3.6 g/dL (3.5-5.0); Alkaline Phosphatase 82 U/L (40-110); Anion Gap 20 mmol/L (10-20); BUN (Urea Nitrogen) 62 mg/dL (8.4-25.7); Bilirubin, Total 0.7 mg/dL (0.2-1.2); Calc. Creatinine Clearance 0 mL/min (70-130); Calcium 10.5 mg/dL (7.8-10.44); Carbon Dioxide 24 mmol/L (22-29); Chloride 96 mmol/L (98-107); Globulin 4.3 g/dL (2.4-3.5); Glucose 87 mg/dL (70-105); Potassium 4.7 mmol/L (3.5-5.1); Protein, Total 7.9 g/dL (6.0-8.3); Sodium 135 mmol/L (136-145)
[2022-02-28 10:03] LABS: Band 3 % (5-11); Lymphocytes 25 % (21-51); MDiff Complete? YES; Monocytes 15 % (0-10); Neutrophil 55 % (42-75); Platelet Morphology Comment Appears Adequate; Polychromasia SLIGHT = 2-3 cells (100X) (0-2/hpf)
[2022-02-28] MEDS ORDERED: Nitroglycerin 2% Ointment 1 INCH/1 GM Packet ONE (10:07)
[2022-02-28 11:15] LABS: CKMB 6.8 ng/mL (0-6.6)
== END 2022-02-28 11:10 | disposition home or self-care (01) ==
LOC: ERS 09:14
DX: I12.0 Hypertensive chronic kidney disease with stage 5 chronic kidney disease or end stage renal disease (principal); N18.6 End stage renal disease; Z99.2 Dependence on renal dialysis; Z79.899 Other long term (current) drug therapy
CPT/HCPCS: 36415; 70450; 71045; 80053; 80307; 82140; 82550; 82553; 83690; 84484; 85025; 93005

== ENCOUNTER 2022-04-27 10:04 | Emergency (ER) | payer OTHER ==
[2022-04-27 10:30] LABS: #Lymphocytes 0.4 thou/uL (1.20-3.40); #Monocytes 0.4 thou/uL (0.11-0.59); #Neutrophils 2.7 thou/uL (1.40-6.50); %Eosinophils 1.3 % (0.0-10.0); %Lymphocytes 10.8 % (21.0-51.0); %Monocytes 10.5 % (0.0-10.0); %Neutrophils 77.4 % (42.0-75.0); Hemoglobin 7.7 g/dL (14.0-18.0); Mean Corpuscular HGB CONC 32.9 g/dL (32.0-36.0); Mean Corpuscular Hemoglobin 33.2 pg (27.0-31.0); Mean Platelet Volume 6.9 fL (7.4-10.4); Platelet Count 123 thou/uL (130-400); Red Blood Cell (RBC) Count 2.33 mill/uL (4.70-6.10); White Blood Cell (WBC) Count 3.5 thou/uL (4.8-10.8)
[2022-04-27 11:02] LABS: ALT (SGPT) 7 U/L (8-55); AST (SGOT) 13 U/L (5-34); Albumin 3.5 g/dL (3.5-5.0); Alkaline Phosphatase 71 U/L (40-110); Anion Gap 24 mmol/L (10-20); BUN (Urea Nitrogen) 97 mg/dL (8.4-25.7); Bilirubin, Total 0.7 mg/dL (0.2-1.2); Calc. Creatinine Clearance 0 mL/min (70-130); Calcium 10.3 mg/dL (7.8-10.44); Carbon Dioxide 24 mmol/L (22-29); Chloride 99 mmol/L (98-107); Estimated GFR 3; Globulin 4.4 g/dL (2.4-3.5); Glucose 99 mg/dL (70-105); Protein, Total 7.9 g/dL (6.0-8.3); Sodium 141 mmol/L (136-145)
[2022-04-27] MEDS ORDERED: Oxymetazoline HCl 0.05% (30 ML BOT) ONE ×2 (11:51→11:54)
[2022-04-27 14:30] LABS: HBSAg Index 0.32 S/CO (0-0.99); Hep B Surf Ag Non-Reactive S/CO (NonReactive)
== END 2022-04-27 15:56 | disposition home or self-care (01) ==
LOC: ERS 10:04
DX: I12.0 Hypertensive chronic kidney disease with stage 5 chronic kidney disease or end stage renal disease (principal); N18.6 End stage renal disease; E87.5 Hyperkalemia; Z99.2 Dependence on renal dialysis; Z79.899 Other long term (current) drug therapy; Z79.82 Long term (current) use of aspirin
CPT/HCPCS: 36415; 80053; 85025; 87340; 93005

== ENCOUNTER 2022-05-09 11:04 | Emergency (ER) | payer OTHER ==
[2022-05-09 11:51] LABS: #Eosinphils 0.1 thou/uL (0.0-0.7); #Lymphocytes 0.8 thou/uL (1.20-3.40); #Monocytes 0.6 thou/uL (0.11-0.59); #Neutrophils 3.4 thou/uL (1.40-6.50); %Basophils 0.4 % (0.0-1.0); %Lymphocytes 15.8 % (21.0-51.0); %Monocytes 11.5 % (0.0-10.0); %Neutrophils 70.3 % (42.0-75.0); Mean Corpuscular HGB CONC 33.2 g/dL (32.0-36.0); Mean Corpuscular Hemoglobin 33.2 pg (27.0-31.0); Mean Platelet Volume 7.8 fL (7.4-10.4); Platelet Count 118 thou/uL (130-400); RBC Distribution Width 13.9 % (11.5-14.5); Red Blood Cell (RBC) Count 1.82 mill/uL (4.70-6.10); White Blood Cell (WBC) Count 4.8 thou/uL (4.8-10.8)
[2022-05-09 11:58] LABS: INR-International Normal Ratio 1.3; Prothrombin Time 16.5 sec (12.0-14.7)
[2022-05-09 11:59] LABS: PTT 45.2 sec (22.9-36.1)
[2022-05-09 12:05] LABS: ALT (SGPT) 14 U/L (8-55); AST (SGOT) 19 U/L (5-34); Albumin 3.5 g/dL (3.5-5.0); Alkaline Phosphatase 71 U/L (40-110); Anion Gap 23 mmol/L (10-20); BUN (Urea Nitrogen) 65 mg/dL (8.4-25.7); Bilirubin, Total 0.7 mg/dL (0.2-1.2); Calc. Creatinine Clearance 0 mL/min (70-130); Carbon Dioxide 26 mmol/L (22-29); Chloride 96 mmol/L (98-107); Estimated GFR 6; Globulin 4.2 g/dL (2.4-3.5); Glucose 84 mg/dL (70-105); Potassium 4.6 mmol/L (3.5-5.1); Protein, Total 7.7 g/dL (6.0-8.3); Sodium 140 mmol/L (136-145)
[2022-05-09] MEDS ORDERED: Epoetin (ESRD) 10,000 UNITS/ML VIAL IVP SCH (17:30)
== END 2022-05-09 19:28 | disposition home or self-care (01) ==
LOC: ERS 11:04
DX: I12.0 Hypertensive chronic kidney disease with stage 5 chronic kidney disease or end stage renal disease (principal); N18.6 End stage renal disease; D63.1 Anemia in chronic kidney disease; R04.0 Epistaxis; E78.5 Hyperlipidemia, unspecified; Z99.2 Dependence on renal dialysis
CPT/HCPCS: 36430; 80053; 85025; 85610; 85730; 86850; 86900; 86901; 90935; 93005; G0257; P9016; Q4081

== ENCOUNTER 2022-07-22 10:17 | Emergency (ER) | payer OTHER ==
[2022-07-22 11:34] LABS: Hemoglobin 9.9 g/dL (14.0-18.0); Mean Corpuscular HGB CONC 32.1 g/dL (32.0-36.0); Mean Corpuscular Hemoglobin 34.4 pg (27.0-31.0); Mean Platelet Volume 7.1 fL (7.4-10.4); Platelet Count 192 thou/uL (130-400); RBC Distribution Width 15.1 % (11.5-14.5); Red Blood Cell (RBC) Count 2.88 mill/uL (4.70-6.10); White Blood Cell (WBC) Count 4.5 thou/uL (4.8-10.8)
[2022-07-22] MEDS ORDERED: HYDROcodone/Acetaminophen 5/325 mg Tablet ONE (12:04)
[2022-07-22 12:18] LABS: ALT (SGPT) 14 U/L (8-55); AST (SGOT) 17 U/L (5-34); Albumin 3.3 g/dL (3.5-5.0); Alkaline Phosphatase 131 U/L (40-110); BUN (Urea Nitrogen) 34 mg/dL (8.4-25.7); Bilirubin, Total 0.6 mg/dL (0.2-1.2); Calc. Creatinine Clearance 0 mL/min (70-130); Calcium 9.6 mg/dL (7.8-10.44); Carbon Dioxide 28 mmol/L (22-29); Estimated GFR 8; Globulin 4.3 g/dL (2.4-3.5); Glucose 106 mg/dL (70-105); Magnesium 1.8 mg/dL (1.6-2.6); Protein, Total 7.6 g/dL (6.0-8.3)
[2022-07-22 12:20] LABS: Chloride 98 mmol/L (98-107); Potassium 4.4 mmol/L (3.5-5.1); Sodium 138 mmol/L (136-145)
[2022-07-22 12:29] LABS: Anion Gap 16 mmol/L (10-20)
[2022-07-22 12:37] LABS: Anisocytosis SLIGHT = 6-15 cells (100X) (0-5/hpf); Band 1 % (5-11); Burr Cells SLIGHT = 2-5 cells (100X) (0-1/hpf); Lymphocytes 15 % (21-51); MDiff Complete? YES; Macrocytosis MODERATE=16-30 cells (100X) (0-5/hpf); Monocytes 11 % (0-10); Neutrophil 73 % (42-75); Ovalocytes SLIGHT = 2-5 cells (100X) (0-1/hpf); Platelet Morphology Comment Appears Adequate
== END 2022-07-22 12:55 | disposition home or self-care (01) ==
LOC: ERS 10:17
DX: M79.642 Pain in left hand (principal); M79.641 Pain in right hand; R20.2 Paresthesia of skin; I12.0 Hypertensive chronic kidney disease with stage 5 chronic kidney disease or end stage renal disease; N18.6 End stage renal disease; E78.5 Hyperlipidemia, unspecified; Z99.2 Dependence on renal dialysis
CPT/HCPCS: 36415; 80053; 83735; 85025

== ENCOUNTER 2022-08-18 09:07 | Inpatient (IN) | payer OTHER ==
[2022-08-18 09:40] LABS: Actual Bicarbonate (HCO3v) 23 mEq/L (22-28); Base Excess -0.4 mEq/L (-2.0 to +3.0); Calcium, Ionized (venous) 0.97 mmol/L (1.16-1.32); Chloride (VBG) 96 mmol/L (98-106); Hemoglobin (Hb) 8.4 g/dL (13.1-17.2); Potassium (VBG) 4.91 mmol/L (3.70-5.30); pH (venous) 7.46 (7.32-7.43)
[2022-08-18 09:48] LABS: #Eosinphils 0.1 thou/uL (0.0-0.7); #Lymphocytes 0.7 thou/uL (1.20-3.40); #Monocytes 0.5 thou/uL (0.11-0.59); #Neutrophils 2.8 thou/uL (1.40-6.50); %Basophils 0.4 % (0.0-1.0); %Eosinophils 3.1 % (0.0-10.0); %Lymphocytes 16.1 % (21.0-51.0); %Monocytes 11.5 % (0.0-10.0); %Neutrophils 68.8 % (42.0-75.0); Hemoglobin 7.8 g/dL (14.0-18.0); Mean Corpuscular Hemoglobin 33.9 pg (27.0-31.0); Mean Platelet Volume 7.3 fL (7.4-10.4); Platelet Count 150 10x3/uL (130-400); RBC Distribution Width 14.4 % (11.5-14.5); Red Blood Cell (RBC) Count 2.29 mill/uL (4.70-6.10); White Blood Cell (WBC) Count 4.1 10x3/uL (4.8-10.8)
[2022-08-18 10:09] LABS: ALT (SGPT) 8 U/L (8-55); AST (SGOT) 13 U/L (5-34); Albumin 3.1 g/dL (3.5-5.0); Alkaline Phosphatase 72 U/L (40-110); Anion Gap 26 mmol/L (10-20); BUN (Urea Nitrogen) 93 mg/dL (8.4-25.7); Bilirubin, Total 0.8 mg/dL (0.2-1.2); Calc. Creatinine Clearance 0 mL/min (70-130); Calcium 8.9 mg/dL (7.8-10.44); Carbon Dioxide 23 mmol/L (22-29); Chloride 96 mmol/L (98-107); Estimated GFR 4; Globulin 4.7 g/dL (2.4-3.5); Glucose 105 mg/dL (70-105); Magnesium 1.7 mg/dL (1.6-2.6); Protein, Total 7.8 g/dL (6.0-8.3); Sodium 140 mmol/L (136-145)
[2022-08-18 10:37] LABS: CKMB 4.4 ng/mL (0-6.6)
[2022-08-18] MEDS ORDERED: Aspirin 325 MG TAB ONE (11:01)
[2022-08-18] MEDS ORDERED: hydrALAZINE 20 MG/ML VIAL ONE (12:37)
[2022-08-18] MEDS ORDERED: Acetaminophen 650 MG Suppository PR PRN (13:02)
[2022-08-18 13:07] LABS: Troponin I 0.421 ng/mL (< 0.028)
[2022-08-18] MEDS ORDERED: Ondansetron ODT 4 MG TAB PO PRN (13:37)
[2022-08-18] MEDS ORDERED: Ondansetron PF 4 MG/2 ML Vial IVP PRN (13:37)
[2022-08-18] MEDS ORDERED: hydrALAZINE 20 MG/ML VIAL SLOW IVP SCH (13:47)
[2022-08-18 13:55] VITALS: BMI 22.8
[2022-08-18] MEDS ORDERED: Amlodipine 5 MG TAB PO SCH (14:00)
[2022-08-18 15:15] LABS: Troponin I 0.414 ng/mL (< 0.028)
[2022-08-18] MEDS ORDERED: Amlodipine 5 MG TAB ONE (15:17)
[2022-08-18 19:40] LABS: HBSAB Concentration Less than 8.00 mIU/mL; Hep B Surf AB Non-Reactive (NonReactive)
[2022-08-18] MEDS: Carvedilol 6.25 MG TAB PO SCH (23:57)
[2022-08-18] MEDS: cloNIDine 0.3 MG TAB PO PRN (23:57)
[2022-08-19] MEDS: Heparin 5,000 UNITS/ML VIAL SC SCH ×3 (00:18→20:57)
[2022-08-19 00:45] LABS: HBSAg Index 0.31 S/CO (0-0.99); Hep B Surf Ag NonReactive S/CO (NonReactive)
[2022-08-19 04:38] LABS: #Eosinphils 0.1 thou/uL (0.0-0.7); #Lymphocytes 0.6 thou/uL (1.20-3.40); #Monocytes 0.6 thou/uL (0.11-0.59); #Neutrophils 2.7 thou/uL (1.40-6.50); %Eosinophils 1.8 % (0.0-10.0); %Lymphocytes 15.6 % (21.0-51.0); %Monocytes 14.4 % (0.0-10.0); %Neutrophils 68.3 % (42.0-75.0); Mean Corpuscular Hemoglobin 34.4 pg (27.0-31.0); Mean Platelet Volume 7.5 fL (7.4-10.4); Platelet Count 150 10x3/uL (130-400); RBC Distribution Width 14.1 % (11.5-14.5); Red Blood Cell (RBC) Count 2.32 mill/uL (4.70-6.10); White Blood Cell (WBC) Count 3.9 10x3/uL (4.8-10.8)
[2022-08-19 05:00] LABS: Anion Gap 16 mmol/L (10-20); BUN (Urea Nitrogen) 41 mg/dL (8.4-25.7); Calc. Creatinine Clearance 11 mL/min (70-130); Calcium 9.4 mg/dL (7.8-10.44); Carbon Dioxide 27 mmol/L (22-29); Chloride 95 mmol/L (98-107); Estimated GFR 8; Glucose 81 mg/dL (70-105); Potassium 4.4 mmol/L (3.5-5.1); Sodium 134 mmol/L (136-145)
[2022-08-19] MEDS: levETIRAcetam 500 MG TAB PO SCH (07:57)
[2022-08-19] MEDS: Amlodipine 10 MG TAB PO SCH (07:57)
[2022-08-19] MEDS: Carvedilol 6.25 MG TAB PO SCH ×2 (07:57→20:57)
[2022-08-19] MEDS: Acetaminophen 325 MG TAB PO PRN ×2 (07:57→12:29)
[2022-08-19] MEDS: hydrALAZINE 25 MG TAB PO SCH ×2 (16:52→20:57)
[2022-08-19] MEDS: Lacosamide 50 mg Tablet PO SCH (20:57)
[2022-08-20 05:24] LABS: Anion Gap 22 mmol/L (10-20); BUN (Urea Nitrogen) 62 mg/dL (8.4-25.7); Calc. Creatinine Clearance 8 mL/min (70-130); Calcium 9.3 mg/dL (7.8-10.44); Carbon Dioxide 25 mmol/L (22-29); Chloride 96 mmol/L (98-107); Estimated GFR 6; Glucose 76 mg/dL (70-105); Potassium 5.6 mmol/L (3.5-5.1); Sodium 137 mmol/L (136-145)
[2022-08-20 06:59] LABS: Hemoglobin 7.5 g/dL (14.0-18.0); Mean Corpuscular HGB CONC 32.5 g/dL (32.0-36.0); Mean Corpuscular Hemoglobin 33.2 pg (27.0-31.0); Mean Platelet Volume 7.7 fL (7.4-10.4); Platelet Count 162 10x3/uL (130-400); RBC Distribution Width 13.9 % (11.5-14.5); Red Blood Cell (RBC) Count 2.26 mill/uL (4.70-6.10); White Blood Cell (WBC) Count 4.1 10x3/uL (4.8-10.8)
[2022-08-20] MEDS: EPOETIN ALFA-EPBX (ESRD) 10,000 UNIT/ML VIAL IVP SCH (08:07)
[2022-08-20 11:11] LABS: Eosinophils 4 % (0-10); Lymphocytes 21 % (21-51); MDiff Complete? YES; Macrocytosis SLIGHT = 6-15 cells (100X) (0-5/hpf); Monocytes 18 % (0-10); Neutrophil 56 % (42-75); Platelet Morphology Comment Appears Adequate; Polychromasia SLIGHT = 2-3 cells (100X) (0-2/hpf); Reactive Lymphocytes 1 % (0-10)
[2022-08-20] MEDS: Amlodipine 10 MG TAB PO SCH (13:02)
[2022-08-20] MEDS: hydrALAZINE 25 MG TAB PO SCH ×3 (13:03→20:39)
[2022-08-20] MEDS: Carvedilol 6.25 MG TAB PO SCH ×2 (13:03→20:39)
[2022-08-20] MEDS: Losartan 25 MG TAB PO SCH (13:03)
[2022-08-20] MEDS: Aspirin 81 mg Enteric Coated Tablet PO SCH (14:24)
[2022-08-20] MEDS: Clopidogrel Bisulfate 75 MG TAB PO SCH (14:25)
[2022-08-20] MEDS: Lacosamide 50 mg Tablet PO SCH ×2 (14:26→20:39)
[2022-08-20] MEDS: levETIRAcetam 500 MG TAB PO SCH (14:27)
[2022-08-20] MEDS: Heparin 5,000 UNITS/ML VIAL SC SCH ×2 (15:07→20:40)
[2022-08-20] MEDS ORDERED: Vancomycin 1.5 GRAM/300 ML BAG 1.5 GM in Premix Bag 1 BAG IVPB SCH (17:00)
[2022-08-20] MEDS: HYDROcodone/Acetaminophen 5/325 mg Tablet PO PRN (20:40)
[2022-08-20] MEDS: cloNIDine 0.3 MG TAB PO PRN (21:31)
[2022-08-20] MEDS ORDERED: fentaNYL PF 100 MCG/2 ML SYRINGE ONE (22:30)
[2022-08-21] MEDS: HYDROcodone/Acetaminophen 5/325 mg Tablet PO PRN ×2 (04:48→14:15)
[2022-08-21 05:30] LABS: ALT (SGPT) 9 U/L (8-55); AST (SGOT) 14 U/L (5-34); Albumin 3.5 g/dL (3.5-5.0); Alkaline Phosphatase 74 U/L (40-110); Anion Gap 15 mmol/L (10-20); BUN (Urea Nitrogen) 34 mg/dL (8.4-25.7); Bilirubin, Total 0.7 mg/dL (0.2-1.2); Calc. Creatinine Clearance 12 mL/min (70-130); Carbon Dioxide 28 mmol/L (22-29); Chloride 98 mmol/L (98-107); Estimated GFR 9; Globulin 4.6 g/dL (2.4-3.5); Glucose 84 mg/dL (70-105); Magnesium 1.8 mg/dL (1.6-2.6); Potassium 5.1 mmol/L (3.5-5.1); Protein, Total 8.1 g/dL (6.0-8.3); Sodium 136 mmol/L (136-145)
[2022-08-21 05:36] LABS: Mean Corpuscular HGB CONC 32.6 g/dL (32.0-36.0); Mean Corpuscular Hemoglobin 33.3 pg (27.0-31.0); Mean Platelet Volume 7.6 fL (7.4-10.4); Platelet Count 180 10x3/uL (130-400); RBC Distribution Width 13.8 % (11.5-14.5)
[2022-08-21 06:05] LABS: Eosinophils 3 % (0-10); Lymphocytes 25 % (21-51); MDiff Complete? YES; Monocytes 19 % (0-10); Neutrophil 53 % (42-75); Rouleaux Formation SLIGHT = 1-5 cells (100X) (None Seen)
[2022-08-21] MEDS ORDERED: Vancomycin Hemodialysis Sliding Scale FS SCH (07:45)
[2022-08-21] MEDS: Losartan 25 MG TAB PO SCH (08:39)
[2022-08-21] MEDS: hydrALAZINE 25 MG TAB PO SCH ×3 (08:39→19:47)
[2022-08-21] MEDS: Amlodipine 10 MG TAB PO SCH (08:39)
[2022-08-21] MEDS: levETIRAcetam 500 MG TAB PO SCH (08:39)
[2022-08-21] MEDS: Carvedilol 6.25 MG TAB PO SCH ×2 (08:39→19:48)
[2022-08-21] MEDS: Aspirin 81 mg Enteric Coated Tablet PO SCH (08:39)
[2022-08-21] MEDS: Heparin 5,000 UNITS/ML VIAL SC SCH ×2 (08:40→19:47)
[2022-08-21] MEDS: Clopidogrel Bisulfate 75 MG TAB PO SCH (08:40)
[2022-08-21] MEDS ORDERED: Vancomycin 1.5 GRAM/300 ML BAG 1.5 GM in Premix Bag 1 BAG IVPB SCH (09:00)
[2022-08-21] MEDS: Lacosamide 50 mg Tablet PO SCH ×2 (10:16→19:56)
[2022-08-21] MEDS ORDERED: cloNIDine 0.3 MG TAB PO PRN (11:00)
[2022-08-21] MEDS ORDERED: cloNIDine 0.1 MG TAB PO SCH (21:00)
[2022-08-22 06:15] LABS: Anion Gap 19 mmol/L (10-20); BUN (Urea Nitrogen) 55 mg/dL (8.4-25.7); Calc. Creatinine Clearance 10 mL/min (70-130); Calcium 9.5 mg/dL (7.8-10.44); Carbon Dioxide 24 mmol/L (22-29); Chloride 97 mmol/L (98-107); Estimated GFR 7; Glucose 72 mg/dL (70-105); Potassium 5.9 mmol/L (3.5-5.1); Sodium 134 mmol/L (136-145)
[2022-08-22 06:27] LABS: Vancomycin, Random 18.6 ug/mL (See Comment)
[2022-08-22 06:32] LABS: Band 3 % (5-11); Eosinophils 3 % (0-10); Hemoglobin 7.6 g/dL (14.0-18.0); Lymphocytes 28 % (21-51); MDiff Complete? YES; Mean Corpuscular HGB CONC 32.8 g/dL (32.0-36.0); Mean Corpuscular Hemoglobin 33.7 pg (27.0-31.0); Mean Platelet Volume 7.3 fL (7.4-10.4); Monocytes 16 % (0-10); Neutrophil 50 % (42-75); Platelet Count 164 10x3/uL (130-400); Platelet Morphology Comment Appears Adequate; RBC Distribution Width 13.7 % (11.5-14.5); RBC Morphology Normal; Red Blood Cell (RBC) Count 2.24 mill/uL (4.70-6.10); White Blood Cell (WBC) Count 3.7 10x3/uL (4.8-10.8)
[2022-08-22] MEDS ORDERED: Heparin 10,000 UNITS/ 10 ML VIAL ONE (10:00)
[2022-08-22] MEDS: Amlodipine 10 MG TAB PO SCH (13:16)
[2022-08-22] MEDS: Carvedilol 6.25 MG TAB PO SCH ×2 (13:17→20:58)
[2022-08-22] MEDS: cloNIDine 0.1 MG TAB PO SCH ×3 (13:17→21:00)
[2022-08-22] MEDS: Aspirin 81 mg Enteric Coated Tablet PO SCH (13:17)
[2022-08-22] MEDS: Heparin 5,000 UNITS/ML VIAL SC SCH ×2 (13:18→21:01)
[2022-08-22] MEDS: Losartan 25 MG TAB PO SCH (13:18)
[2022-08-22] MEDS: levETIRAcetam 500 MG TAB PO SCH (13:18)
[2022-08-22] MEDS: hydrALAZINE 25 MG TAB PO SCH ×3 (13:19→21:00)
[2022-08-22] MEDS: Clopidogrel Bisulfate 75 MG TAB PO SCH (13:19)
[2022-08-22] MEDS: Lacosamide 50 mg Tablet PO SCH ×2 (14:14→21:02)
[2022-08-22] MEDS: EPOETIN ALFA-EPBX (ESRD) 10,000 UNIT/ML VIAL IVP SCH (14:15)
[2022-08-22] MEDS ORDERED: Vancomycin HCl 500 MG in Sodium Chloride 0.9% 100 ML IVPB SCH (17:00)
[2022-08-22] MEDS: HYDROcodone/Acetaminophen 5/325 mg Tablet PO PRN (17:24)
[2022-08-23] MEDS: Amlodipine 10 MG TAB PO SCH (08:42)
[2022-08-23] MEDS: Aspirin 81 mg Enteric Coated Tablet PO SCH (08:42)
[2022-08-23] MEDS: Losartan 25 MG TAB PO SCH (08:43)
[2022-08-23] MEDS: Clopidogrel Bisulfate 75 MG TAB PO SCH (08:43)
[2022-08-23] MEDS: cloNIDine 0.1 MG TAB PO SCH ×3 (08:43→21:02)
[2022-08-23] MEDS: Carvedilol 6.25 MG TAB PO SCH ×2 (08:43→21:00)
[2022-08-23] MEDS: levETIRAcetam 500 MG TAB PO SCH (08:44)
[2022-08-23] MEDS: Heparin 5,000 UNITS/ML VIAL SC SCH ×2 (08:44→21:00)
[2022-08-23] MEDS: hydrALAZINE 25 MG TAB PO SCH ×3 (08:52→20:58)
[2022-08-23 09:21] LABS: Anion Gap 15 mmol/L (10-20); BUN (Urea Nitrogen) 38 mg/dL (8.4-25.7); Calc. Creatinine Clearance 13 mL/min (70-130); Calcium 9.7 mg/dL (7.8-10.44); Carbon Dioxide 27 mmol/L (22-29); Chloride 94 mmol/L (98-107); Estimated GFR 10; Glucose 106 mg/dL (70-105); Potassium 4.9 mmol/L (3.5-5.1); Sodium 131 mmol/L (136-145)
[2022-08-23 09:22] LABS: Hemoglobin 7.8 g/dL (14.0-18.0); Mean Corpuscular HGB CONC 32.6 g/dL (32.0-36.0); Mean Corpuscular Hemoglobin 33.5 pg (27.0-31.0); Mean Platelet Volume 7.3 fL (7.4-10.4); Platelet Count 185 10x3/uL (130-400); RBC Distribution Width 13.8 % (11.5-14.5); Red Blood Cell (RBC) Count 2.34 mill/uL (4.70-6.10); White Blood Cell (WBC) Count 3.6 10x3/uL (4.8-10.8)
[2022-08-23] MEDS: Lacosamide 50 mg Tablet PO SCH ×2 (09:31→20:58)
[2022-08-23 12:16] LABS: Eosinophils 4 % (0-10); Lymphocytes 19 % (21-51); MDiff Complete? YES; Macrocytosis SLIGHT = 6-15 cells (100X) (0-5/hpf); Monocytes 14 % (0-10); Neutrophil 62 % (42-75); Platelet Morphology Comment Appears Adequate; Polychromasia SLIGHT = 2-3 cells (100X) (0-2/hpf)
[2022-08-24] MEDS: HYDROcodone/Acetaminophen 5/325 mg Tablet PO PRN (03:07)
[2022-08-24 05:23] LABS: #Eosinphils 0.1 thou/uL (0.0-0.7); #Monocytes 0.5 thou/uL (0.11-0.59); #Neutrophils 2.2 thou/uL (1.40-6.50); %Basophils 0.2 % (0.0-1.0); %Eosinophils 2.8 % (0.0-10.0); %Lymphocytes 25.3 % (21.0-51.0); %Monocytes 14.4 % (0.0-10.0); %Neutrophils 57.2 % (42.0-75.0); Hemoglobin 6.9 g/dL (14.0-18.0); Mean Corpuscular HGB CONC 31.9 g/dL (32.0-36.0); Mean Corpuscular Hemoglobin 32.8 pg (27.0-31.0); Mean Platelet Volume 7.5 fL (7.4-10.4); Platelet Count 182 10x3/uL (130-400); RBC Distribution Width 14.3 % (11.5-14.5); White Blood Cell (WBC) Count 3.8 10x3/uL (4.8-10.8)
[2022-08-24 05:41] LABS: Anion Gap 16 mmol/L (10-20); BUN (Urea Nitrogen) 56 mg/dL (8.4-25.7); Calc. Creatinine Clearance 11 mL/min (70-130); Calcium 9.2 mg/dL (7.8-10.44); Carbon Dioxide 25 mmol/L (22-29); Chloride 97 mmol/L (98-107); Estimated GFR 8; Glucose 78 mg/dL (70-105); Potassium 5.3 mmol/L (3.5-5.1); Sodium 133 mmol/L (136-145)
[2022-08-24] MEDS: Heparin 5,000 UNITS/ML VIAL SC SCH (08:37)
[2022-08-24] MEDS: Lacosamide 50 mg Tablet PO SCH (08:37)
[2022-08-24] MEDS: hydrALAZINE 25 MG TAB PO SCH (08:38)
[2022-08-24] MEDS: Aspirin 81 mg Enteric Coated Tablet PO SCH (08:38)
[2022-08-24] MEDS: Carvedilol 6.25 MG TAB PO SCH (08:38)
[2022-08-24] MEDS: levETIRAcetam 500 MG TAB PO SCH (08:38)
[2022-08-24] MEDS: Amlodipine 10 MG TAB PO SCH (08:38)
[2022-08-24] MEDS: Clopidogrel Bisulfate 75 MG TAB PO SCH (08:39)
[2022-08-24] MEDS: cloNIDine 0.1 MG TAB PO SCH (08:39)
[2022-08-24 08:48] VITALS: TEMP 97.7
[2022-08-24] MEDS ORDERED: hydrALAZINE 20 MG/ML VIAL SLOW IVP SCH (10:45)
[2022-08-24 10:48] VITALS: BP 157/85
[2022-08-24] MEDS ORDERED: LOKELMA 10 GM PACKET PO SCH (11:30)
== END 2022-08-24 11:30 | disposition home or self-care (01) | DRG 640 ==
LOC: ERS 09:07 → ERHOLD 10:52 → 2NO 19:10 → MSONC 08-20 21:08
PROVIDERS: ADMIT Family Medicine; ATTEND Internal Medicine
PROC: 5A1D70Z Performance of Urinary Filtration, Intermittent, Less than 6 Hours Per Day (ICD-10-PCS; principal; 2022-08-22)
DX: E87.70 Fluid overload, unspecified (principal); J96.01 Acute respiratory failure with hypoxia; N18.6 End stage renal disease; I12.0 Hypertensive chronic kidney disease with stage 5 chronic kidney disease or end stage renal disease; Z20.822 Contact with and (suspected) exposure to COVID-19; I16.0 Hypertensive urgency; E87.5 Hyperkalemia; G40.909 Epilepsy, unspecified, not intractable, without status epilepticus; E88.09 Other disorders of plasma-protein metabolism, not elsewhere classified; D63.1 Anemia in chronic kidney disease; R79.89 Other specified abnormal findings of blood chemistry; Z91.15 Patient's noncompliance with renal dialysis; Z79.899 Other long term (current) drug therapy; Z79.82 Long term (current) use of aspirin; Z79.02 Long term (current) use of antithrombotics/antiplatelets; Z91.041 Radiographic dye allergy status; Z86.73 Personal history of transient ischemic attack (TIA), and cerebral infarction without residual deficits; Z90.49 Acquired absence of other specified parts of digestive tract; Z87.891 Personal history of nicotine dependence
CPT/HCPCS: 36415; 71045; 80048; 80053; 80202; 82140; 82553; 82805; 83735; 83880; 84100; 84145; 84484; 85025; 86706; 87040; 87077; 87149; 87340; 90935; 93005; G0257; J0360; J1644; J3370; J3490; Q5105; U0003; U0005

== ENCOUNTER 2022-09-07 23:03 | Inpatient (IN) | payer OTHER ==
[2022-09-07] MEDS ORDERED: hydrALAZINE 20 MG/ML VIAL ONE (23:15)
[2022-09-07] MEDS ORDERED: Ibuprofen 200 MG TAB ONE (23:34)
[2022-09-07 23:45] LABS: Actual Bicarbonate (HCO3a) 21.4 mEq/L (22-28); Analyzer IN Cardio ER; Base Excess (BEa) -2.2 mEq/L (-2.0 to +3.0); CO2 Tension 31.3 mmHg (35.0-45.0); Calcium, Ionized (arterial) 1.09 mmol/L (1.12-1.30); Carboxyhemoglobin (COHb) 1.3 gm% (0.0-3.0); Hemoglobin (Hb) 7.4 g/dL (14.0-18.0); Potassium - ABG Lab 4.85 mmol/L (3.70-5.30); pH, Arterial 7.45 (7.35-7.45)
[2022-09-07 23:53] LABS: #Lymphocytes 0.2 thou/uL (1.20-3.40); #Monocytes 0.5 thou/uL (0.11-0.59); #Neutrophils 5.8 thou/uL (1.40-6.50); %Basophils 0.1 % (0.0-1.0); %Eosinophils 0.3 % (0.0-10.0); %Lymphocytes 3.1 % (21.0-51.0); %Monocytes 8.1 % (0.0-10.0); %Neutrophils 88.4 % (42.0-75.0); Hemoglobin 7.3 g/dL (14.0-18.0); Mean Corpuscular HGB CONC 33.6 g/dL (32.0-36.0); Mean Corpuscular Hemoglobin 35.1 pg (27.0-31.0); Mean Platelet Volume 7.6 fL (7.4-10.4); Platelet Count 105 10x3/uL (130-400); RBC Distribution Width 16.2 % (11.5-14.5); Red Blood Cell (RBC) Count 2.07 mill/uL (4.70-6.10); White Blood Cell (WBC) Count 6.6 10x3/uL (4.8-10.8)
[2022-09-07 23:59] LABS: O2 Tension (PaO2), arterial 31.4 mmHg (80.0-100.0); Puncture Site RRA
[2022-09-08] LABS: ALV-art Gradient 186.155 mmHg (0-20)
[2022-09-08 00:42] LABS: CKMB 3.3 ng/mL (0-6.6)
[2022-09-08 00:49] LABS: ALT (SGPT) 11 U/L (8-55); AST (SGOT) 17 U/L (5-34); Albumin 3.2 g/dL (3.5-5.0); Alkaline Phosphatase 64 U/L (40-110); Anion Gap 25 mmol/L (10-20); BUN (Urea Nitrogen) 54 mg/dL (8.4-25.7); Bilirubin, Total 0.7 mg/dL (0.2-1.2); Calc. Creatinine Clearance 0 mL/min (70-130); Calcium 9.2 mg/dL (7.8-10.44); Carbon Dioxide 18 mmol/L (22-29); Chloride 95 mmol/L (98-107); Estimated GFR 6; Globulin 4.4 g/dL (2.4-3.5); Glucose 70 mg/dL (70-105); Magnesium 1.6 mg/dL (1.6-2.6); Potassium 4.9 mmol/L (3.5-5.1); Protein, Total 7.6 g/dL (6.0-8.3); Sodium 133 mmol/L (136-145)
[2022-09-08] MEDS ORDERED: Aspirin 325 MG TAB ONE (01:03)
[2022-09-08 02:10] LABS: SARS-CoV-2 NAA Rapid Test Not Detected (NotDetected)
[2022-09-08] MEDS ORDERED: cefTRIAXone\\ROCEPHIN 1 GM VIAL ONE (02:10)
[2022-09-08] MEDS ORDERED: Dexamethasone 4 mg/ml Vial ONE (02:13)
[2022-09-08] MEDS ORDERED: Azithromycin 500 MG VIAL ONE (02:42)
[2022-09-08 02:49] LABS: Lactic Acid 1.5 mmol/L (0.5-2.2)
[2022-09-08] MEDS ORDERED: Ondansetron PF 4 MG/2 ML Vial IVP PRN (03:26)
[2022-09-08] MEDS ORDERED: Acetaminophen 325 MG TAB PO PRN (03:26)
[2022-09-08] MEDS ORDERED: Ondansetron ODT 4 MG TAB PO PRN (03:26)
[2022-09-08] MEDS ORDERED: cefTRIAXone\\ROCEPHIN 1 GM in Sodium Chloride 0.9% 100 ML IVPB SCH (03:30)
[2022-09-08] MEDS ORDERED: methylPREDNISolone Sod Succ 40 MG VIAL IVP SCH (06:00)
[2022-09-08 06:02] VITALS: BMI 23.5
[2022-09-08] MEDS ORDERED: methylPREDNISolone Sod Succ 40 MG VIAL ONE (06:32)
[2022-09-08] MEDS: cloNIDine 0.2 MG TAB PO SCH ×3 (08:57→21:13)
[2022-09-08] MEDS: levETIRAcetam 500 MG TAB PO SCH (08:57)
[2022-09-08] MEDS: hydrALAZINE 25 MG TAB PO SCH ×3 (08:57→21:14)
[2022-09-08] MEDS: Carvedilol 6.25 MG TAB PO SCH ×2 (08:57→21:13)
[2022-09-08 09:24] LABS: #Lymphocytes 0.4 thou/uL (1.20-3.40); #Monocytes 0.2 thou/uL (0.11-0.59); #Neutrophils 7.1 thou/uL (1.40-6.50); %Eosinophils 0.1 % (0.0-10.0); %Lymphocytes 5.3 % (21.0-51.0); %Monocytes 2.2 % (0.0-10.0); %Neutrophils 92.5 % (42.0-75.0); Hemoglobin 7.1 g/dL (14.0-18.0); Mean Corpuscular HGB CONC 32.3 g/dL (32.0-36.0); Mean Corpuscular Hemoglobin 34.2 pg (27.0-31.0); Mean Platelet Volume 8.1 fL (7.4-10.4); Platelet Count 96 10x3/uL (130-400); RBC Distribution Width 15.9 % (11.5-14.5); Red Blood Cell (RBC) Count 2.08 mill/uL (4.70-6.10); White Blood Cell (WBC) Count 7.6 10x3/uL (4.8-10.8)
[2022-09-08 09:29] LABS: Anion Gap 23 mmol/L (10-20); BUN (Urea Nitrogen) 58 mg/dL (8.4-25.7); Calc. Creatinine Clearance 8 mL/min (70-130); Calcium 9.4 mg/dL (7.8-10.44); Carbon Dioxide 22 mmol/L (22-29); Chloride 93 mmol/L (98-107); Estimated GFR 5; Glucose 116 mg/dL (70-105); Potassium 5.9 mmol/L (3.5-5.1); Sodium 132 mmol/L (136-145)
[2022-09-08] MEDS: Lacosamide 50 mg Tablet PO SCH ×2 (09:34→21:14)
[2022-09-08] MEDS ORDERED: Benzonatate 100 MG CAP PO PRN (09:55)
[2022-09-08] MEDS ORDERED: Cefepime 1 GM in Sodium Chloride 0.9% 100 ML IVPB SCH (10:00)
[2022-09-08] MEDS ORDERED: Acetaminophen/Codeine 30-300mg Tablet ONE ×2 (10:11→22:37)
[2022-09-08] MEDS: Acetaminophen/Codeine 30-300mg Tablet PO PRN ×2 (10:13→22:38)
[2022-09-08] MEDS ORDERED: LOKELMA 10 GM PACKET PO SCH (10:45)
[2022-09-08] MEDS ORDERED: Cefepime 1 GM VIAL ONE (10:52)
[2022-09-08] MEDS: Sevelamer Carbonate 800 MG TAB PO SCH ×2 (11:12→21:13)
[2022-09-08] MEDS ORDERED: Heparin 10,000 UNITS/ 10 ML VIAL ONE (12:24)
[2022-09-08] MEDS ORDERED: Benzonatate 100 MG CAP ONE ×2 (12:45→13:03)
[2022-09-08] MEDS ORDERED: Oseltamivir 6 MG/ML ORAL SUSP PO SCH (21:00)
[2022-09-09] MEDS: Azithromycin 500 MG in Sodium Chloride 0.9% 250 ML 250 ML IVPB SCH (03:11)
[2022-09-09] MEDS ORDERED: Azithromycin 500 MG VIAL ONE (03:14)
[2022-09-09 07:33] LABS: #Lymphocytes 0.6 thou/uL (1.20-3.40); #Monocytes 0.3 thou/uL (0.11-0.59); #Neutrophils 6.2 thou/uL (1.40-6.50); %Basophils 0.6 % (0.0-1.0); %Eosinophils 0.2 % (0.0-10.0); %Lymphocytes 8.8 % (21.0-51.0); %Monocytes 4.6 % (0.0-10.0); %Neutrophils 85.8 % (42.0-75.0); Hemoglobin 8.3 g/dL (14.0-18.0); Mean Corpuscular HGB CONC 32.2 g/dL (32.0-36.0); Mean Corpuscular Hemoglobin 32.8 pg (27.0-31.0); Mean Platelet Volume 7.8 fL (7.4-10.4); Platelet Count 117 10x3/uL (130-400); RBC Distribution Width 17.5 % (11.5-14.5); Red Blood Cell (RBC) Count 2.54 mill/uL (4.70-6.10); White Blood Cell (WBC) Count 7.2 10x3/uL (4.8-10.8)
[2022-09-09 07:51] LABS: Anion Gap 19 mmol/L (10-20); BUN (Urea Nitrogen) 47 mg/dL (8.4-25.7); Calc. Creatinine Clearance 13 mL/min (70-130); Calcium 9.8 mg/dL (7.8-10.44); Carbon Dioxide 24 mmol/L (22-29); Chloride 95 mmol/L (98-107); Estimated GFR 9; Glucose 79 mg/dL (70-105); Potassium 4.7 mmol/L (3.5-5.1); Sodium 133 mmol/L (136-145)
[2022-09-09] MEDS: cloNIDine 0.2 MG TAB PO SCH ×2 (08:48→15:10)
[2022-09-09] MEDS: hydrALAZINE 25 MG TAB PO SCH ×3 (08:49→20:53)
[2022-09-09] MEDS: Sevelamer Carbonate 800 MG TAB PO SCH ×2 (08:50→12:45)
[2022-09-09] MEDS: Carvedilol 6.25 MG TAB PO SCH (09:14)
[2022-09-09] MEDS: levETIRAcetam 500 MG TAB PO SCH (09:14)
[2022-09-09] MEDS: Lacosamide 50 mg Tablet PO SCH ×2 (10:04→20:53)
[2022-09-09] MEDS ORDERED: Amlodipine 10 MG TAB PO SCH (16:00)
[2022-09-09] MEDS: Cefepime 1 GM in Sodium Chloride 0.9% 100 ML IVPB SCH (16:52)
[2022-09-09] MEDS: risperiDONE 1 MG TAB PO SCH (20:53)
[2022-09-09] MEDS: Carvedilol 25 MG TAB PO SCH (20:53)
[2022-09-09] MEDS: cloNIDine 0.3 MG TAB PO SCH (20:53)
[2022-09-09] MEDS: Melatonin 3 MG TAB PO SCH (20:53)
[2022-09-09] MEDS ORDERED: Carvedilol 6.25 MG TAB PO SCH (21:00)
[2022-09-10] MEDS: Azithromycin 500 MG in Sodium Chloride 0.9% 250 ML 250 ML IVPB SCH (03:57)
[2022-09-10 05:57] LABS: #Lymphocytes 0.6 thou/uL (1.20-3.40); #Monocytes 0.2 thou/uL (0.11-0.59); #Neutrophils 2.5 thou/uL (1.40-6.50); %Eosinophils 0.7 % (0.0-10.0); %Lymphocytes 16.8 % (21.0-51.0); %Monocytes 6.9 % (0.0-10.0); %Neutrophils 75.6 % (42.0-75.0); Hemoglobin 6.3 g/dL (14.0-18.0); Mean Corpuscular HGB CONC 32.2 g/dL (32.0-36.0); Mean Corpuscular Hemoglobin 33.4 pg (27.0-31.0); Mean Platelet Volume 8.3 fL (7.4-10.4); Platelet Count 92 10x3/uL (130-400); RBC Distribution Width 16.7 % (11.5-14.5); White Blood Cell (WBC) Count 3.4 10x3/uL (4.8-10.8)
[2022-09-10 06:41] LABS: Anion Gap 20 mmol/L (10-20); BUN (Urea Nitrogen) 56 mg/dL (8.4-25.7); Calc. Creatinine Clearance 12 mL/min (70-130); Calcium 7.5 mg/dL (7.8-10.44); Carbon Dioxide 20 mmol/L (22-29); Chloride 104 mmol/L (98-107); Estimated GFR 9; Glucose 73 mg/dL (70-105); Sodium 140 mmol/L (136-145)
[2022-09-10] MEDS ORDERED: Oseltamivir 6 MG/ML ORAL SUSP PO SCH (09:00)
[2022-09-10] MEDS: Aspirin 81 mg Enteric Coated Tablet PO SCH (09:21)
[2022-09-10] MEDS: Folic Acid/Vit B Comp W-C PO SCH (09:22)
[2022-09-10] MEDS: levETIRAcetam 500 MG TAB PO SCH (09:23)
[2022-09-10] MEDS: Carvedilol 25 MG TAB PO SCH ×2 (09:30→22:30)
[2022-09-10] MEDS: cloNIDine 0.3 MG TAB PO SCH ×3 (09:30→22:32)
[2022-09-10] MEDS: Amlodipine 10 MG TAB PO SCH (09:30)
[2022-09-10] MEDS: Lacosamide 50 mg Tablet PO SCH ×2 (10:26→22:30)
[2022-09-10] MEDS ORDERED: Epoetin (ESRD) 10,000 UNITS/ML VIAL SC SCH (10:30)
[2022-09-10] MEDS: hydrALAZINE 25 MG TAB PO SCH ×3 (10:33→22:30)
[2022-09-10] MEDS ORDERED: Epoetin (ESRD) 20,000 UNITS/ML SC SCH (12:00)
[2022-09-10 12:24] LABS: #Lymphocytes 0.6 thou/uL (1.20-3.40); #Monocytes 0.3 thou/uL (0.11-0.59); #Neutrophils 2.6 thou/uL (1.40-6.50); %Eosinophils 0.8 % (0.0-10.0); %Lymphocytes 17.7 % (21.0-51.0); %Monocytes 7.5 % (0.0-10.0); %Neutrophils 74.1 % (42.0-75.0); Hemoglobin 8.5 g/dL (14.0-18.0); Mean Corpuscular HGB CONC 32.4 g/dL (32.0-36.0); Mean Corpuscular Hemoglobin 33.6 pg (27.0-31.0); Mean Platelet Volume 8.2 fL (7.4-10.4); Platelet Count 108 10x3/uL (130-400); RBC Distribution Width 16.8 % (11.5-14.5); Red Blood Cell (RBC) Count 2.52 mill/uL (4.70-6.10); White Blood Cell (WBC) Count 3.5 10x3/uL (4.8-10.8)
[2022-09-10] MEDS ORDERED: Heparin 10,000 UNITS/ 10 ML VIAL ONE (12:33)
[2022-09-10] MEDS: risperiDONE 1 MG TAB PO SCH (22:29)
[2022-09-10] MEDS: Cefepime 1 GM in Sodium Chloride 0.9% 100 ML IVPB SCH (22:30)
[2022-09-10] MEDS: Melatonin 3 MG TAB PO SCH (22:30)
[2022-09-11] MEDS: Azithromycin 500 MG in Sodium Chloride 0.9% 250 ML 250 ML IVPB SCH (03:42)
[2022-09-11 05:15] LABS: #Lymphocytes 0.4 thou/uL (1.20-3.40); #Monocytes 0.2 thou/uL (0.11-0.59); #Neutrophils 1.2 thou/uL (1.40-6.50); %Eosinophils 1.9 % (0.0-10.0); %Lymphocytes 23.1 % (21.0-51.0); %Monocytes 9.4 % (0.0-10.0); %Neutrophils 65.7 % (42.0-75.0); Hemoglobin 7.1 g/dL (14.0-18.0); Mean Corpuscular HGB CONC 31.3 g/dL (32.0-36.0); Mean Corpuscular Hemoglobin 31.9 pg (27.0-31.0); Mean Platelet Volume 8.8 fL (7.4-10.4); Platelet Count 73 10x3/uL (130-400); RBC Distribution Width 16.3 % (11.5-14.5); Red Blood Cell (RBC) Count 2.22 mill/uL (4.70-6.10); White Blood Cell (WBC) Count 1.9 10x3/uL (4.8-10.8)
[2022-09-11 06:58] LABS: Albumin 3.1 g/dL (3.5-5.0)
[2022-09-11 06:59] LABS: Chloride 98 mmol/L (98-107); Potassium 3.9 mmol/L (3.5-5.1); Sodium 135 mmol/L (136-145)
[2022-09-11 07:00] LABS: Calcium 8.6 mg/dL (7.8-10.44); Glucose 79 mg/dL (70-105)
[2022-09-11 07:01] LABS: Globulin 4.3 g/dL (2.4-3.5); Protein, Total 7.4 g/dL (6.0-8.3)
[2022-09-11 07:02] LABS: Anion Gap 15 mmol/L (10-20); Bilirubin, Total 0.6 mg/dL (0.2-1.2); Carbon Dioxide 26 mmol/L (22-29)
[2022-09-11 07:03] LABS: Alkaline Phosphatase 68 U/L (40-110)
[2022-09-11 07:04] LABS: Calc. Creatinine Clearance 15 mL/min (70-130); Estimated GFR 12
[2022-09-11 07:05] LABS: BUN (Urea Nitrogen) 36 mg/dL (8.4-25.7)
[2022-09-11 07:06] LABS: ALT (SGPT) 21 U/L (8-55); AST (SGOT) 36 U/L (5-34)
[2022-09-11 08:58] VITALS: BP 179/104; TEMP 97.9
[2022-09-11] MEDS: Aspirin 81 mg Enteric Coated Tablet PO SCH (09:45)
[2022-09-11] MEDS: Carvedilol 25 MG TAB PO SCH (09:45)
[2022-09-11] MEDS: Amlodipine 10 MG TAB PO SCH (09:45)
[2022-09-11] MEDS: levETIRAcetam 500 MG TAB PO SCH (09:46)
[2022-09-11] MEDS: hydrALAZINE 25 MG TAB PO SCH (09:46)
[2022-09-11] MEDS: Folic Acid/Vit B Comp W-C PO SCH (09:46)
[2022-09-11] MEDS: cloNIDine 0.3 MG TAB PO SCH (09:46)
[2022-09-11] MEDS: Lacosamide 50 mg Tablet PO SCH (09:46)
[2022-09-11] MEDS ORDERED: CALCIUM ACETATE 667 MG/5 ML DT SCH (12:00)
[2022-09-11] MEDS ORDERED: CEFEPIME HCL IN DEXTROSE 5 % 1 GM in Premix Bag 1 BAG IVPB SCH (17:00)
== END 2022-09-11 11:42 | disposition home or self-care (01) | DRG 193 ==
LOC: ERS 23:03 → ERHOLD 09-08 02:12 → 2SW 09-09 09:35
PROVIDERS: ADMIT Family Medicine; ATTEND Family Medicine
PROC: 30233N1 Transfusion of Nonautologous Red Blood Cells into Peripheral Vein, Percutaneous Approach (ICD-10-PCS; 2022-09-08)
PROC: 5A1D70Z Performance of Urinary Filtration, Intermittent, Less than 6 Hours Per Day (ICD-10-PCS; principal; 2022-09-10)
DX: J10.00 Influenza due to other identified influenza virus with unspecified type of pneumonia (principal); J96.01 Acute respiratory failure with hypoxia; N18.6 End stage renal disease; I12.0 Hypertensive chronic kidney disease with stage 5 chronic kidney disease or end stage renal disease; Z20.822 Contact with and (suspected) exposure to COVID-19; E87.5 Hyperkalemia; G40.909 Epilepsy, unspecified, not intractable, without status epilepticus; D53.9 Nutritional anemia, unspecified; D69.6 Thrombocytopenia, unspecified; E88.09 Other disorders of plasma-protein metabolism, not elsewhere classified; R77.8 Other specified abnormalities of plasma proteins; D63.1 Anemia in chronic kidney disease; Z90.49 Acquired absence of other specified parts of digestive tract; Z99.2 Dependence on renal dialysis; Z91.041 Radiographic dye allergy status; Z79.899 Other long term (current) drug therapy
CPT/HCPCS: 36415; 36430; 36600; 71045; 80048; 80053; 82553; 82805; 83605; 83735; 83880; 84145; 84484; 85025; 86850; 86900; 86901; 87040; 87633; 87798; 87804; 90935; 93005; 96374; 96375; G0257; J0360; J0456; J0692; J0696; J1100; J1644; J2920; J3490; J7050; J7620; P9016; Q4081; U0002

== ENCOUNTER 2022-09-13 10:35 | Inpatient (IN) | payer OTHER ==
[2022-09-13] MEDS ORDERED: Iopamidol-370 76% 500 ML 1 ML ONE (11:01)
[2022-09-13 11:22] LABS: #Eosinphils 0.1 thou/uL (0.0-0.7); #Lymphocytes 0.8 thou/uL (1.20-3.40); #Monocytes 0.5 thou/uL (0.11-0.59); #Neutrophils 2.7 thou/uL (1.40-6.50); %Basophils 0.2 % (0.0-1.0); %Eosinophils 1.6 % (0.0-10.0); %Lymphocytes 19.1 % (21.0-51.0); %Monocytes 12.1 % (0.0-10.0); Hemoglobin 8.9 g/dL (14.0-18.0); Mean Corpuscular HGB CONC 33.7 g/dL (32.0-36.0); Mean Corpuscular Hemoglobin 34.1 pg (27.0-31.0); Mean Platelet Volume 8.3 fL (7.4-10.4); Platelet Count 119 10x3/uL (130-400); RBC Distribution Width 16.5 % (11.5-14.5); Red Blood Cell (RBC) Count 2.59 mill/uL (4.70-6.10)
[2022-09-13 11:39] LABS: ALT (SGPT) 21 U/L (8-55); AST (SGOT) 34 U/L (5-34); Albumin 3.3 g/dL (3.5-5.0); Alkaline Phosphatase 87 U/L (40-110); Anion Gap 18 mmol/L (10-20); BUN (Urea Nitrogen) 61 mg/dL (8.4-25.7); Bilirubin, Total 0.7 mg/dL (0.2-1.2); Calc. Creatinine Clearance 0 mL/min (70-130); Calcium 8.7 mg/dL (7.8-10.44); Carbon Dioxide 24 mmol/L (22-29); Chloride 99 mmol/L (98-107); Estimated GFR 6; Globulin 4.4 g/dL (2.4-3.5); Glucose 81 mg/dL (70-105); Potassium 4.2 mmol/L (3.5-5.1); Protein, Total 7.7 g/dL (6.0-8.3); Sodium 137 mmol/L (136-145)
[2022-09-13] MEDS ORDERED: Fentanyl 100 MCG/2 ML VIAL ONE (12:01)
[2022-09-13] MEDS ORDERED: Heparin 25,000 units/D5W 0 ML ONE (12:06)
[2022-09-13] MEDS ORDERED: diphenhydrAMINE 50 MG/ML VIAL ONE (12:06)
[2022-09-13] MEDS ORDERED: Heparin 10,000 UNITS/ 10 ML VIAL ONE (12:06)
[2022-09-13] MEDS ORDERED: Aspirin Chewable 81 MG TAB ONE (12:06)
[2022-09-13] MEDS ORDERED: Famotidine/PF 20 mg/2ml Vial ONE (12:06)
[2022-09-13] MEDS ORDERED: methylPREDNISolone Sod Succ 40 MG VIAL ONE (12:06)
[2022-09-13] MEDS ORDERED: Heparin 25,000 units/D5W 500 ML ONE (12:07)
[2022-09-13 12:19] LABS: CKMB 4.6 ng/mL (0-6.6)
[2022-09-13 12:44] LABS: INR-International Normal Ratio 1.4; PTT 41.1 sec (22.9-36.1); Prothrombin Time 17.2 sec (12.0-14.7)
[2022-09-13] MEDS ORDERED: Nitroglycerin 50 MG/250 ML BOT 250 ML ONE (12:48)
[2022-09-13] MEDS ORDERED: Acetaminophen 325 MG TAB PO PRN (14:10)
[2022-09-13] MEDS ORDERED: Heparin 25,000 units/D5W 500 ML IVPB SCH (14:15)
[2022-09-13] MEDS ORDERED: Nitroglycerin 50 MG/250 ML BOT 250 ML IVPB SCH (14:15)
[2022-09-13] MEDS ORDERED: Heparin 10,000 UNITS/ 10 ML VIAL SLOW IVP SCH (14:15)
[2022-09-13 14:31] LABS: Hemoglobin 8.4 g/dL (14.0-18.0); Platelet Count 113 10x3/uL (130-400)
[2022-09-13 14:32] LABS: Critical Call Chem Troponin I RESULT DECREASING; Troponin I 3.119 ng/mL (< 0.028)
[2022-09-13] MEDS ORDERED: Piperacillin/Tazobactam 3.375 GM in Sodium Chloride 0.9% 100 ML IVPB SCH ×2 (14:45→16:00)
[2022-09-13 15:50] LABS: SARS-CoV-2 NAA Rapid Test Not Detected (NotDetected)
[2022-09-13 16:02] VITALS: BMI 24.1
[2022-09-13] MEDS: cloNIDine 0.3 MG TAB PO SCH ×3 (16:55→22:40)
[2022-09-13] MEDS: diphenhydrAMINE 25 MG CAP PO PRN ×2 (17:37→22:40)
[2022-09-13 19:39] LABS: PTT 134.7 sec (22.9-36.1)
[2022-09-13 19:41] LABS: Critical Call Chem Troponin I RESULT DECREASING; Troponin I 2.866 ng/mL (< 0.028)
[2022-09-13] MEDS: HYDROcodone/Acetaminophen 5/325 mg Tablet PO PRN (21:03)
[2022-09-13] MEDS: Carvedilol 25 MG TAB PO SCH (21:04)
[2022-09-13] MEDS: Atorvastatin Calcium 40 MG TAB PO SCH (21:04)
[2022-09-13] MEDS: Piperacillin/Tazobactam 3.375 GM in Sodium Chloride 0.9% 100 ML IVPB SCH (21:05)
[2022-09-14] MEDS: HYDROcodone/Acetaminophen 5/325 mg Tablet PO PRN ×2 (02:33→09:22)
[2022-09-14 04:20] LABS: Hemoglobin 8.1 g/dL (14.0-18.0); Mean Corpuscular HGB CONC 33.7 g/dL (32.0-36.0); Mean Corpuscular Hemoglobin 34.8 pg (27.0-31.0); Mean Platelet Volume 8.4 fL (7.4-10.4); Platelet Count 129 10x3/uL (130-400); RBC Distribution Width 17.4 % (11.5-14.5); Red Blood Cell (RBC) Count 2.32 mill/uL (4.70-6.10); White Blood Cell (WBC) Count 4.9 10x3/uL (4.8-10.8)
[2022-09-14 04:38] LABS: Anion Gap 17 mmol/L (10-20); BUN (Urea Nitrogen) 34 mg/dL (8.4-25.7); Calc. Creatinine Clearance 14 mL/min (70-130); Calcium 8.8 mg/dL (7.8-10.44); Carbon Dioxide 25 mmol/L (22-29); Chloride 100 mmol/L (98-107); Estimated GFR 11; Glucose 91 mg/dL (70-105); Potassium 4.5 mmol/L (3.5-5.1); Sodium 137 mmol/L (136-145)
[2022-09-14 05:11] LABS: Band 4 % (5-11); Lymphocytes 18 % (21-51); MDiff Complete? YES; Macrocytosis SLIGHT = 6-15 cells (100X) (0-5/hpf); Metamyelocyte 1 % (0-0); Monocytes 6 % (0-10); Neutrophil 71 % (42-75); Polychromasia SLIGHT = 2-3 cells (100X) (0-2/hpf)
[2022-09-14] MEDS: Piperacillin/Tazobactam 3.375 GM in Sodium Chloride 0.9% 100 ML IVPB SCH (07:15)
[2022-09-14] MEDS: Famotidine 20 MG TAB PO SCH (07:16)
[2022-09-14] MEDS: cloNIDine 0.3 MG TAB PO SCH ×3 (07:16→20:20)
[2022-09-14] MEDS: Carvedilol 25 MG TAB PO SCH ×2 (07:16→20:20)
[2022-09-14] MEDS: Amlodipine 10 MG TAB PO SCH (07:16)
[2022-09-14] MEDS: levETIRAcetam 500 MG TAB PO SCH (07:17)
[2022-09-14] MEDS: Aspirin 81 mg Enteric Coated Tablet PO SCH (07:17)
[2022-09-14] MEDS: Folic Acid/Vit B Comp W-C PO SCH (08:07)
[2022-09-14] MEDS ORDERED: FLU VACC QS2022-23(6MOS UP)/PF 60 MCG/0.5 ML SYRINGE IM ONE (09:00)
[2022-09-14] MEDS: Cefdinir 300 MG CAP PO SCH (09:22)
[2022-09-14] MEDS: Heparin 5,000 UNITS/ML VIAL SC SCH ×2 (09:23→20:20)
[2022-09-14] MEDS: Atorvastatin Calcium 40 MG TAB PO SCH (20:20)
[2022-09-14] MEDS: risperiDONE 1 MG TAB PO SCH (20:20)
[2022-09-15] MEDS: Carvedilol 25 MG TAB PO SCH ×2 (08:42→22:07)
[2022-09-15] MEDS: Folic Acid/Vit B Comp W-C PO SCH (08:43)
[2022-09-15] MEDS: Cefdinir 300 MG CAP PO SCH (08:43)
[2022-09-15] MEDS: cloNIDine 0.3 MG TAB PO SCH ×3 (08:44→22:05)
[2022-09-15] MEDS: Amlodipine 10 MG TAB PO SCH (08:44)
[2022-09-15] MEDS: Aspirin 81 mg Enteric Coated Tablet PO SCH (08:44)
[2022-09-15] MEDS: levETIRAcetam 500 MG TAB PO SCH (08:44)
[2022-09-15] MEDS: Heparin 5,000 UNITS/ML VIAL SC SCH ×2 (08:45→22:08)
[2022-09-15] MEDS: Famotidine 20 MG TAB PO SCH (08:45)
[2022-09-15 11:45] LABS: HBSAg Index 0.59 S/CO (0-0.99); Hep B Surf Ag Non-Reactive S/CO (NonReactive)
[2022-09-15] MEDS: Calcium Acetate 667 MG CAP PO SCH ×2 (12:05→17:41)
[2022-09-15] MEDS ORDERED: EPOETIN ALFA-EPBX (ESRD) 10,000 UNIT/ML VIAL SC SCH (14:00)
[2022-09-15 15:00] LABS: Hemoglobin 9.2 g/dL (14.0-18.0); Platelet Count 138 10x3/uL (130-400)
[2022-09-15 15:36] LABS: HBSAg Index 0.34 S/CO (0-0.99); Hep B Surf Ag Non-Reactive S/CO (NonReactive)
[2022-09-15] MEDS: Vancomycin HCl 125 MG/5 ML (BATCHED) UDCUP PO SCH ×2 (17:40→23:46)
[2022-09-15] MEDS: Atorvastatin Calcium 40 MG TAB PO SCH (22:07)
[2022-09-15] MEDS: risperiDONE 1 MG TAB PO SCH (22:07)
[2022-09-15] MEDS: Benzonatate 100 MG CAP PO PRN (22:08)
[2022-09-15] MEDS: HYDROcodone/Acetaminophen 5/325 mg Tablet PO PRN (22:08)
[2022-09-16] MEDS: cloNIDine 0.3 MG TAB PO SCH ×3 (10:03→21:30)
[2022-09-16] MEDS: Benzonatate 100 MG CAP PO PRN (10:03)
[2022-09-16] MEDS: Aspirin 81 mg Enteric Coated Tablet PO SCH (10:03)
[2022-09-16] MEDS: Folic Acid/Vit B Comp W-C PO SCH (10:03)
[2022-09-16] MEDS: Vancomycin HCl 125 MG/5 ML (BATCHED) UDCUP PO SCH ×4 (10:03→23:33)
[2022-09-16] MEDS: Famotidine 20 MG TAB PO SCH (10:04)
[2022-09-16] MEDS: Amlodipine 10 MG TAB PO SCH (10:04)
[2022-09-16] MEDS: levETIRAcetam 500 MG TAB PO SCH (10:04)
[2022-09-16] MEDS: Calcium Acetate 667 MG CAP PO SCH ×3 (10:04→17:55)
[2022-09-16] MEDS: Carvedilol 25 MG TAB PO SCH ×2 (10:05→21:30)
[2022-09-16] MEDS: Heparin 5,000 UNITS/ML VIAL SC SCH ×2 (10:05→21:31)
[2022-09-16] MEDS: Cefdinir 300 MG CAP PO SCH (10:57)
[2022-09-16] MEDS: HYDROcodone/Acetaminophen 5/325 mg Tablet PO PRN (21:30)
[2022-09-16] MEDS: risperiDONE 1 MG TAB PO SCH (21:30)
[2022-09-16] MEDS: Atorvastatin Calcium 40 MG TAB PO SCH (21:30)
[2022-09-17] MEDS: Vancomycin HCl 125 MG/5 ML (BATCHED) UDCUP PO SCH ×2 (06:17→13:53)
[2022-09-17] MEDS: Amlodipine 10 MG TAB PO SCH (11:21)
[2022-09-17] MEDS: cloNIDine 0.3 MG TAB PO SCH ×2 (11:22→13:52)
[2022-09-17] MEDS: Heparin 5,000 UNITS/ML VIAL SC SCH (11:22)
[2022-09-17] MEDS: Carvedilol 25 MG TAB PO SCH (11:22)
[2022-09-17] MEDS: HYDROcodone/Acetaminophen 5/325 mg Tablet PO PRN (13:51)
[2022-09-17] MEDS: Calcium Acetate 667 MG CAP PO SCH ×2 (13:51→13:53)
[2022-09-17] MEDS: Folic Acid/Vit B Comp W-C PO SCH (13:52)
[2022-09-17] MEDS: levETIRAcetam 500 MG TAB PO SCH (13:52)
[2022-09-17] MEDS: Aspirin 81 mg Enteric Coated Tablet PO SCH (13:52)
[2022-09-17] MEDS: Famotidine 20 MG TAB PO SCH (13:52)
[2022-09-17 14:11] LABS: Hemoglobin 9.8 g/dL (14.0-18.0); Platelet Count 141 10x3/uL (130-400)
[2022-09-17 16:04] VITALS: BP 154/77; TEMP 97.3
== END 2022-09-17 17:10 | disposition home or self-care (01) | DRG 640 ==
LOC: ERS 10:35 → CCU 13:27 → 2NO 09-14 19:23
PROVIDERS: ADMIT Family Medicine; ATTEND Family Medicine
PROC: 5A1D70Z Performance of Urinary Filtration, Intermittent, Less than 6 Hours Per Day (ICD-10-PCS; principal; 2022-09-13)
DX: E87.70 Fluid overload, unspecified (principal); I21.A1 Myocardial infarction type 2; N18.6 End stage renal disease; J10.00 Influenza due to other identified influenza virus with unspecified type of pneumonia; A04.72 Enterocolitis due to Clostridium difficile, not specified as recurrent; N03.9 Chronic nephritic syndrome with unspecified morphologic changes; Z20.822 Contact with and (suspected) exposure to COVID-19; D63.1 Anemia in chronic kidney disease; D69.6 Thrombocytopenia, unspecified; G40.909 Epilepsy, unspecified, not intractable, without status epilepticus; I16.0 Hypertensive urgency; I51.89 Other ill-defined heart diseases; I10 Essential (primary) hypertension; E87.5 Hyperkalemia; Z91.041 Radiographic dye allergy status; Z28.21 Immunization not carried out because of patient refusal; Z99.2 Dependence on renal dialysis; Z79.899 Other long term (current) drug therapy; Z79.82 Long term (current) use of aspirin; Z90.49 Acquired absence of other specified parts of digestive tract
CPT/HCPCS: 36415; 71045; 71275; 80048; 80053; 82553; 83880; 84484; 85014; 85018; 85025; 85049; 85610; 85730; 87324; 87340; 87449; 87804; 93005; 93306; 96365; 96366; 96368; 96375; J1200; J1644; J2543; J2920; J3010; J3490; Q5105; Q9967; S0028; U0002

== ENCOUNTER 2022-12-27 09:46 | Emergency (ER) | payer OTHER ==
[~2022-12-27 09:46] MED LIST changes: +Heparin 10,000 UNITS/ 10 ML VIAL ONE; -Iopamidol 370 76% 100 ML VIAL ONE
[2022-12-27 10:41] LABS: #Eosinphils 0.1 thou/uL (0.0-0.7); #Lymphocytes 0.7 thou/uL (1.20-3.40); #Monocytes 0.4 thou/uL (0.11-0.59); #Neutrophils 3.4 thou/uL (1.40-6.50); %Basophils 0.3 % (0.0-1.0); %Lymphocytes 15.5 % (21.0-51.0); %Monocytes 7.8 % (0.0-10.0); %Neutrophils 74.3 % (42.0-75.0); Hemoglobin 10.8 g/dL (14.0-18.0); Mean Corpuscular HGB CONC 32.9 g/dL (32.0-36.0); Mean Corpuscular Hemoglobin 33.6 pg (27.0-31.0); Mean Platelet Volume 7.3 fL (7.4-10.4); Platelet Count 152 10x3/uL (130-400); RBC Distribution Width 14.5 % (11.5-14.5); Red Blood Cell (RBC) Count 3.22 mill/uL (4.70-6.10); White Blood Cell (WBC) Count 4.6 10x3/uL (4.8-10.8)
[2022-12-27 11:03] LABS: ALT (SGPT) 32 U/L (8-55); AST (SGOT) 23 U/L (5-34); Albumin 3.5 g/dL (3.5-5.0); Alkaline Phosphatase 139 U/L (40-110); Anion Gap 23 mmol/L (10-20); BUN (Urea Nitrogen) 96 mg/dL (8.4-25.7); Bilirubin, Total 0.6 mg/dL (0.2-1.2); Calc. Creatinine Clearance 0 mL/min (70-130); Calcium 9.6 mg/dL (7.8-10.44); Carbon Dioxide 22 mmol/L (22-29); Chloride 97 mmol/L (98-107); Estimated GFR 5; Globulin 4.4 g/dL (2.4-3.5); Glucose 154 mg/dL (70-105); Protein, Total 7.9 g/dL (6.0-8.3); Sodium 136 mmol/L (136-145)
[2022-12-27] MEDS ORDERED: HYDROcodone/Acetaminophen 5/325 mg Tablet ONE (13:57)
[2022-12-27 15:39] LABS: HBSAB Concentration Less than 8.00 mIU/mL; HBSAg Index 0.24 S/CO (0-0.99); Hep B Surf AB Non-Reactive (NonReactive); Hep B Surf Ag Non-Reactive S/CO (NonReactive)
[2022-12-27 15:55] LABS: Hep C IgG Ab Reflex HepC Qnt (NonReactive); Hep C Index 14.53 S/CO (0-0.79)
[2022-12-27 16:41] LABS: Hep B Core Total Index 7.32 S/CO (0-0.79)
[2022-12-27 16:43] LABS: Hep B Core Total Ab Reactive (NonReactive)
[2022-12-31 08:42] LABS: Hep C PCR-Quant HCV Not Detected IU/mL (.)
== END 2022-12-27 20:02 | disposition home or self-care (01) ==
LOC: ERS 09:46
DX: I12.0 Hypertensive chronic kidney disease with stage 5 chronic kidney disease or end stage renal disease (principal); N18.6 End stage renal disease; D72.829 Elevated white blood cell count, unspecified; Z99.2 Dependence on renal dialysis
CPT/HCPCS: 36415; 80053; 85025; 86704; 86850; 86900; 86901; 87522; 93005; J1644

== ENCOUNTER 2023-04-14 15:55 | Emergency (ER) | payer OTHER ==
[2023-04-14 17:30] LABS: #Eosinphils 0.1 thou/uL (0.0-0.7); #Monocytes 0.4 thou/uL (0.11-0.59); #Neutrophils 2.2 thou/uL (1.40-6.50); %Basophils 0.3 % (0.0-1.0); %Eosinophils 1.4 % (0.0-10.0); %Lymphocytes 27.1 % (21.0-51.0); %Neutrophils 59.7 % (42.0-75.0); Hemoglobin 8.7 g/dL (14.0-18.0); Mean Corpuscular HGB CONC 30.5 g/dL (32.0-36.0); Mean Corpuscular Hemoglobin 31.6 pg (27.0-31.0); Mean Platelet Volume 10.1 fL (7.4-10.4); Platelet Count 97 10x3/uL (130-400); RBC Distribution Width 16.6 % (11.5-14.5); Red Blood Cell (RBC) Count 2.75 mill/uL (4.70-6.10); White Blood Cell (WBC) Count 3.7 10x3/uL (4.8-10.8)
[2023-04-14 17:31] LABS: Mean Corpuscular Volume 103.6 fl (78.0-98.0)
[2023-04-14] MEDS ORDERED: Morphine 4 MG/ML VIAL ONE (17:52)
[2023-04-14 17:57] LABS: ALT (SGPT) 9 U/L (8-55); AST (SGOT) 14 U/L (5-34); Albumin 3.1 g/dL (3.5-5.0); Alkaline Phosphatase 107 U/L (40-110); Anion Gap 16 mmol/L (10-20); BUN (Urea Nitrogen) 31 mg/dL (8.4-25.7); Bilirubin, Total 0.5 mg/dL (0.2-1.2); Calc. Creatinine Clearance 0 mL/min (70-130); Calcium 8.3 mg/dL (7.8-10.44); Carbon Dioxide 25 mmol/L (22-29); Chloride 99 mmol/L (98-107); Estimated GFR 8; Globulin 4.7 g/dL (2.4-3.5); Glucose 78 mg/dL (70-105); Potassium 4.7 mmol/L (3.5-5.1); Protein, Total 7.8 g/dL (6.0-8.3); Sodium 135 mmol/L (136-145)
== END 2023-04-14 17:57 | disposition home or self-care (01) ==
LOC: ERS 15:55
DX: T23.231A Burn of second degree of multiple right fingers (nail), not including thumb, initial encounter (principal); I12.0 Hypertensive chronic kidney disease with stage 5 chronic kidney disease or end stage renal disease; N18.6 End stage renal disease; Z99.2 Dependence on renal dialysis; X10.0XXA Contact with hot drinks, initial encounter
CPT/HCPCS: 36415; 80053; 85025; 96372; 99283; J2270

== ENCOUNTER 2023-05-01 16:54 | Emergency (ER) | payer OTHER | END 2023-05-01 17:41 | disposition home or self-care (01) | LOC: ERS 16:54 | DX: T23.241D Burn of second degree of multiple right fingers (nail), including thumb, subsequent encounter (principal); I12.0 Hypertensive chronic kidney disease with stage 5 chronic kidney disease or end stage renal disease; N18.6 End stage renal disease; X10.0XXD Contact with hot drinks, subsequent encounter; Z99.2 Dependence on renal dialysis | CPT/HCPCS: 99283 ==

== ENCOUNTER 2023-05-29 20:23 | Inpatient (IN) | payer OTHER ==
[2023-05-29 20:53] LABS: Actual Bicarbonate (HCO3a) 27.2 mEq/L (22-28); Analyzer IN Cardio ER; Base Excess (BEa) 2.8 mEq/L (-2.0 to +3.0); CO2 Tension 41.5 mmHg (35.0-45.0); Calcium, Ionized (arterial) 1.07 mmol/L (1.12-1.30); Carboxyhemoglobin (COHb) 0.8 gm% (0.0-3.0); Hematocrit-ABG 24 % (42.0-52.0); Hemoglobin (Hb) 8.1 g/dL (14.0-18.0); Potassium - ABG Lab 4.94 mmol/L (3.70-5.30); pH, Arterial 7.435 (7.35-7.45)
[2023-05-29 21:02] LABS: #Eosinphils 0.1 thou/uL (0.0-0.7); #Monocytes 0.3 thou/uL (0.11-0.59); #Neutrophils 4.5 thou/uL (1.40-6.50); %Basophils 0.2 % (0.0-1.0); %Lymphocytes 11.2 % (21.0-51.0); %Monocytes 5.5 % (0.0-10.0); %Neutrophils 80.7 % (42.0-75.0); Hematocrit 23.5 % (42.0-52.0); Hemoglobin 7.4 g/dL (14.0-18.0); Mean Corpuscular HGB CONC 31.5 g/dL (32.0-36.0); Mean Corpuscular Hemoglobin 32.2 pg (27.0-31.0); Mean Corpuscular Volume 102.2 fl (78.0-98.0); Mean Platelet Volume 9.4 fL (7.4-10.4); Platelet Count 123 10x3/uL (130-400); RBC Distribution Width 14.5 % (11.5-14.5); White Blood Cell (WBC) Count 5.6 10x3/uL (4.8-10.8)
[2023-05-29 21:19] LABS: ALT (SGPT) 28 U/L (8-55); AST (SGOT) 34 U/L (5-34); Acetaminophen Less than 10 mcg/mL (10.0-30.0); Albumin 3.1 g/dL (3.5-5.0); Alcohol Less than 10.0 mg/dL (Less than 10); Alkaline Phosphatase 104 U/L (40-110); Anion Gap 18 mmol/L (10-20); BUN (Urea Nitrogen) 36 mg/dL (8.4-25.7); Bilirubin, Total 0.7 mg/dL (0.2-1.2); Calc. Creatinine Clearance 0 mL/min (70-130); Calcium 9.2 mg/dL (7.8-10.44); Carbon Dioxide 26 mmol/L (22-29); Chloride 94 mmol/L (98-107); Estimated GFR 9; Globulin 4.6 g/dL (2.4-3.5); Glucose 98 mg/dL (70-105); Lipase 30 U/L (8-78); Protein, Total 7.7 g/dL (6.0-8.3); Salicylate Less than 8.0 mg/dL (15.0-30.0); Sodium 133 mmol/L (136-145)
[2023-05-29 21:49] LABS: Troponin I 1.788 ng/mL (< 0.028)
[2023-05-29] MEDS ORDERED: cefTRIAXone (ROCEPHIN) 2 GM VIAL ONE (22:06)
[2023-05-29] MEDS ORDERED: Aspirin Chewable 81 MG TAB ONE (22:07)
[2023-05-29] MEDS ORDERED: Ipratropium/Albuterol 3 ML NEB ONE (22:28)
[2023-05-29] MEDS ORDERED: Acetaminophen 650 MG Suppository PR PRN (23:19)
[2023-05-29] MEDS ORDERED: Ondansetron PF 4 MG/2 ML Vial IVP PRN (23:19)
[2023-05-29] MEDS ORDERED: Ondansetron ODT 4 MG TAB PO PRN (23:19)
[2023-05-29] MEDS ORDERED: Azithromycin 500 MG VIAL ONE (23:46)
[2023-05-29] MEDS ORDERED: Aspirin 300 MG Suppository ONE (23:46)
[2023-05-30] MEDS ORDERED: Lorazepam 2 MG/ML VIAL SLOW IVP PRN (00:40)
[2023-05-30] MEDS ORDERED: levETIRAcetam 500 MG/5 ML VIAL SLOW IVP SCH (01:00)
[2023-05-30 01:15] LABS: HBSAB Concentration Less than 8.00 mIU/mL; HBSAg Index 0.23 S/CO (0-0.99); Hep B Surf AB Non-Reactive (NonReactive); Hep B Surf Ag Non-Reactive S/CO (NonReactive)
[2023-05-30] MEDS ORDERED: Dextrose 5% in Water 1,000 ML IV PRN (01:17)
[2023-05-30] MEDS ORDERED: Dextrose 50% Abboject 50 ML SYRINGE SLOW IVP PRN (01:17)
[2023-05-30] MEDS ORDERED: Glucagon 1 MG/ML KIT IM PRN (01:17)
[2023-05-30 01:19] LABS: Hep B Core Total Ab Reactive (NonReactive); Hep B Core Total Index 5.86 S/CO (0-0.79); Hep C IgG Ab Reflex HepC Qnt S/CO (NonReactive)
[2023-05-30 03:50] LABS: SARS-CoV-2 NAA Rapid Test Not Detected (NotDetected)
[2023-05-30 06:41] LABS: #Monocytes 0.3 thou/uL (0.11-0.59); #Neutrophils 5.4 thou/uL (1.40-6.50); %Basophils 0.2 % (0.0-1.0); %Lymphocytes 6.8 % (21.0-51.0); %Monocytes 4.7 % (0.0-10.0); %Neutrophils 87.5 % (42.0-75.0); Hematocrit 24.9 % (42.0-52.0); Hemoglobin 7.8 g/dL (14.0-18.0); Mean Corpuscular HGB CONC 31.3 g/dL (32.0-36.0); Mean Corpuscular Hemoglobin 32.1 pg (27.0-31.0); Mean Corpuscular Volume 102.5 fl (78.0-98.0); Mean Platelet Volume 8.7 fL (7.4-10.4); Platelet Count 111 10x3/uL (130-400); RBC Distribution Width 14.2 % (11.5-14.5); Red Blood Cell (RBC) Count 2.43 mill/uL (4.70-6.10); White Blood Cell (WBC) Count 6.2 10x3/uL (4.8-10.8)
[2023-05-30 06:59] LABS: Anion Gap 15 mmol/L (10-20); BUN (Urea Nitrogen) 17 mg/dL (8.4-25.7); Calc. Creatinine Clearance 0 mL/min (70-130); Calcium 8.8 mg/dL (7.8-10.44); Carbon Dioxide 26 mmol/L (22-29); Chloride 98 mmol/L (98-107); Estimated GFR 18; Glucose 124 mg/dL (70-105); Magnesium 1.6 mg/dL (1.6-2.6); Sodium 135 mmol/L (136-145)
[2023-05-30 07:15] LABS: Troponin I 1.314 ng/mL (< 0.028)
[2023-05-30] MEDS: levETIRAcetam 500 MG/5 ML VIAL SLOW IVP SCH ×2 (09:15→21:27)
[2023-05-30] MEDS: Heparin 5,000 UNITS/ML VIAL SC SCH ×2 (09:18→21:28)
[2023-05-30] MEDS: Pantoprazole 40 MG VIAL IVP SCH (09:18)
[2023-05-30 10:12] LABS: Troponin I 1.369 ng/mL (< 0.028)
[2023-05-30] MEDS ORDERED: Atorvastatin Calcium 40 MG TAB PO SCH (21:00)
[2023-05-30] MEDS: Acetaminophen 325 MG TAB PO PRN (21:26)
[2023-05-30] MEDS: Carvedilol 25 MG TAB PO SCH (21:27)
[2023-05-31 00:42] LABS: Puncture Site RBA
[2023-05-31 00:43] LABS: ALV-art Gradient 226.625 mmHg (0-20)
[2023-05-31 04:43] LABS: #Eosinphils 0.1 thou/uL (0.0-0.7); #Monocytes 0.3 thou/uL (0.11-0.59); #Neutrophils 2.6 thou/uL (1.40-6.50); %Basophils 0.3 % (0.0-1.0); %Eosinophils 1.6 % (0.0-10.0); %Lymphocytes 20.8 % (21.0-51.0); %Monocytes 7.5 % (0.0-10.0); %Neutrophils 69.3 % (42.0-75.0); Hematocrit 22.1 % (42.0-52.0); Hemoglobin 6.9 g/dL (14.0-18.0); Mean Corpuscular HGB CONC 31.2 g/dL (32.0-36.0); Mean Corpuscular Hemoglobin 31.7 pg (27.0-31.0); Mean Corpuscular Volume 101.4 fl (78.0-98.0); Mean Platelet Volume 9.6 fL (7.4-10.4); Platelet Count 110 10x3/uL (130-400); RBC Distribution Width 14.1 % (11.5-14.5); Red Blood Cell (RBC) Count 2.18 mill/uL (4.70-6.10); White Blood Cell (WBC) Count 3.7 10x3/uL (4.8-10.8)
[2023-05-31 05:06] LABS: Anion Gap 15 mmol/L (10-20); BUN (Urea Nitrogen) 28 mg/dL (8.4-25.7); Calc. Creatinine Clearance 16 mL/min (70-130); Carbon Dioxide 28 mmol/L (22-29); Chloride 97 mmol/L (98-107); Estimated GFR 11; Glucose 99 mg/dL (70-105); Potassium 3.9 mmol/L (3.5-5.1); Sodium 136 mmol/L (136-145)
[2023-05-31 05:52] VITALS: BMI 24.9
[2023-05-31 05:57] LABS: Hemoglobin A1c 3.9 % (4.0-6.0)
[2023-05-31] MEDS: levETIRAcetam 500 MG/5 ML VIAL SLOW IVP SCH (09:34)
[2023-05-31] MEDS: Pantoprazole 40 MG VIAL IVP SCH (09:34)
[2023-05-31] MEDS: cloNIDine 0.3 MG TAB PO SCH ×3 (09:35→22:00)
[2023-05-31] MEDS: Amlodipine 10 MG TAB PO SCH (09:35)
[2023-05-31] MEDS: Heparin 5,000 UNITS/ML VIAL SC SCH ×2 (09:35→21:39)
[2023-05-31] MEDS: Aspirin 81 mg Enteric Coated Tablet PO SCH (09:35)
[2023-05-31] MEDS: Carvedilol 25 MG TAB PO SCH ×2 (09:35→22:05)
[2023-05-31 09:47] LABS: Troponin I 1.248 ng/mL (< 0.028)
[2023-05-31] MEDS: Acetaminophen 325 MG TAB PO PRN (11:09)
[2023-05-31] MEDS: hydrALAZINE 25 MG TAB PO SCH ×2 (16:10→22:01)
[2023-05-31] MEDS: risperiDONE 1 MG TAB PO SCH (22:01)
[2023-05-31] MEDS: Gabapentin 300 MG CAP PO SCH (22:04)
[2023-05-31] MEDS: Rosuvastatin 10 MG TAB PO SCH (22:04)
[2023-05-31] MEDS: Famotidine 20 MG TAB PO SCH (22:05)
[2023-06-01 05:11] LABS: #Eosinphils 0.1 thou/uL (0.0-0.7); #Monocytes 0.3 thou/uL (0.11-0.59); #Neutrophils 1.9 thou/uL (1.40-6.50); %Basophils 0.4 % (0.0-1.0); %Eosinophils 1.8 % (0.0-10.0); %Lymphocytes 20.7 % (21.0-51.0); %Monocytes 9.1 % (0.0-10.0); %Neutrophils 67.6 % (42.0-75.0); Hematocrit 23.9 % (42.0-52.0); Hemoglobin 7.6 g/dL (14.0-18.0); Mean Corpuscular HGB CONC 31.8 g/dL (32.0-36.0); Mean Corpuscular Hemoglobin 31.5 pg (27.0-31.0); Mean Corpuscular Volume 99.2 fl (78.0-98.0); Mean Platelet Volume 9.5 fL (7.4-10.4); Platelet Count 119 10x3/uL (130-400); RBC Distribution Width 15.3 % (11.5-14.5); Red Blood Cell (RBC) Count 2.41 mill/uL (4.70-6.10); White Blood Cell (WBC) Count 2.8 10x3/uL (4.8-10.8)
[2023-06-01 05:32] LABS: Anion Gap 15 mmol/L (10-20); BUN (Urea Nitrogen) 40 mg/dL (8.4-25.7); Calc. Creatinine Clearance 12 mL/min (70-130); Calcium 8.6 mg/dL (7.8-10.44); Carbon Dioxide 27 mmol/L (22-29); Chloride 99 mmol/L (98-107); Estimated GFR 8; Glucose 89 mg/dL (70-105); Sodium 137 mmol/L (136-145)
[2023-06-01] MEDS: cloNIDine 0.3 MG TAB PO SCH ×3 (11:05→21:10)
[2023-06-01] MEDS: hydrALAZINE 25 MG TAB PO SCH ×3 (11:06→21:10)
[2023-06-01] MEDS: Gabapentin 300 MG CAP PO SCH ×2 (11:51→21:10)
[2023-06-01] MEDS: Carvedilol 25 MG TAB PO SCH ×2 (11:51→21:09)
[2023-06-01] MEDS: Heparin 5,000 UNITS/ML VIAL SC SCH ×2 (11:52→21:09)
[2023-06-01] MEDS: Amlodipine 10 MG TAB PO SCH (14:09)
[2023-06-01] MEDS: levETIRAcetam 500 MG TAB PO SCH (14:10)
[2023-06-01] MEDS: Aspirin 81 mg Enteric Coated Tablet PO SCH (14:10)
[2023-06-01] MEDS ORDERED: Labetalol HCl 100 MG/20 ML VIAL SLOW IVP PRN (16:55)
[2023-06-01] MEDS ORDERED: levETIRAcetam 500 MG TAB PO SCH (17:00)
[2023-06-01] MEDS: hydrALAZINE 20 MG/ML VIAL SLOW IVP PRN (17:09)
[2023-06-01] MEDS: Famotidine 20 MG TAB PO SCH (21:09)
[2023-06-01] MEDS: Rosuvastatin 10 MG TAB PO SCH (21:09)
[2023-06-01] MEDS: risperiDONE 1 MG TAB PO SCH (21:11)
[2023-06-02] MEDS: hydrALAZINE 20 MG/ML VIAL SLOW IVP PRN (05:56)
[2023-06-02] MEDS: Heparin 5,000 UNITS/ML VIAL SC SCH ×2 (09:16→20:55)
[2023-06-02] MEDS: Amlodipine 10 MG TAB PO SCH (09:16)
[2023-06-02] MEDS: cloNIDine 0.3 MG TAB PO SCH ×3 (09:17→20:54)
[2023-06-02] MEDS: hydrALAZINE 25 MG TAB PO SCH ×3 (09:17→20:55)
[2023-06-02] MEDS: Gabapentin 300 MG CAP PO SCH ×2 (09:17→20:55)
[2023-06-02] MEDS: levETIRAcetam 500 MG TAB PO SCH (09:17)
[2023-06-02] MEDS: Carvedilol 25 MG TAB PO SCH ×2 (09:17→20:54)
[2023-06-02] MEDS: Aspirin 81 mg Enteric Coated Tablet PO SCH (09:18)
[2023-06-02] MEDS ORDERED: Lorazepam 2 MG/ML VIAL SLOW IVP SCH ×2 (13:45)
[2023-06-02] MEDS: Famotidine 20 MG TAB PO SCH (20:54)
[2023-06-02] MEDS: Rosuvastatin 10 MG TAB PO SCH (20:55)
[2023-06-02] MEDS: risperiDONE 1 MG TAB PO SCH (20:55)
[2023-06-03 08:06] VITALS: TEMP 97.8
[2023-06-03] MEDS: hydrALAZINE 25 MG TAB PO SCH (10:23)
[2023-06-03] MEDS: cloNIDine 0.3 MG TAB PO SCH (10:23)
[2023-06-03] MEDS: Aspirin 81 mg Enteric Coated Tablet PO SCH (11:20)
[2023-06-03] MEDS: levETIRAcetam 500 MG TAB PO SCH (11:20)
[2023-06-03] MEDS: Heparin 5,000 UNITS/ML VIAL SC SCH (11:20)
[2023-06-03] MEDS: Carvedilol 25 MG TAB PO SCH (11:21)
[2023-06-03] MEDS: Gabapentin 300 MG CAP PO SCH (11:21)
[2023-06-03] MEDS: Amlodipine 10 MG TAB PO SCH (11:21)
[2023-06-03 11:46] VITALS: BP 176/87
== END 2023-06-03 15:55 | disposition home health service (06) | DRG 871 ==
LOC: ERS 20:23 → CCU 23:24 → 2NO 05-30 09:48
PROVIDERS: ADMIT Student in an Organized Health Care Education/Training Program; ATTEND Emergency Medicine
PROC: 4A133R1 Monitoring of Arterial Saturation, Peripheral, Percutaneous Approach (ICD-10-PCS; 2023-05-29)
PROC: 3E03329 Introduction of Other Anti-infective into Peripheral Vein, Percutaneous Approach (ICD-10-PCS; 2023-05-29)
PROC: 5A09357 Assistance with Respiratory Ventilation, Less than 24 Consecutive Hours, Continuous Positive Airway Pressure (ICD-10-PCS; 2023-05-30)
PROC: 5A1D70Z Performance of Urinary Filtration, Intermittent, Less than 6 Hours Per Day (ICD-10-PCS; 2023-05-30)
PROC: 30233N1 Transfusion of Nonautologous Red Blood Cells into Peripheral Vein, Percutaneous Approach (ICD-10-PCS; principal; 2023-05-31)
PROC: 5A1D70Z Performance of Urinary Filtration, Intermittent, Less than 6 Hours Per Day (ICD-10-PCS; 2023-06-01)
DX: A41.9 Sepsis, unspecified organism (principal); J18.9 Pneumonia, unspecified organism; J96.01 Acute respiratory failure with hypoxia; N18.6 End stage renal disease; E87.1 Hypo-osmolality and hyponatremia; I50.32 Chronic diastolic (congestive) heart failure; I13.2 Hypertensive heart and chronic kidney disease with heart failure and with stage 5 chronic kidney disease, or end stage renal disease; R47.81 Slurred speech; Z51.5 Encounter for palliative care; E87.70 Fluid overload, unspecified; G40.909 Epilepsy, unspecified, not intractable, without status epilepticus; D63.1 Anemia in chronic kidney disease; R77.8 Other specified abnormalities of plasma proteins; Z91.158 Patient's noncompliance with renal dialysis for other reason; Z99.2 Dependence on renal dialysis; Z91.041 Radiographic dye allergy status; Z79.82 Long term (current) use of aspirin; Z79.899 Other long term (current) drug therapy; Z90.49 Acquired absence of other specified parts of digestive tract; Z20.822 Contact with and (suspected) exposure to COVID-19
CPT/HCPCS: 36415; 36416; 36430; 36600; 70450; 71045; 80048; 80053; 80177; 80307; 82805; 83036; 83605; 83690; 83735; 84145; 84484; 85025; 86704; 86850; 86900; 86901; 87040; 90935; 93005; 93306; 94640; 94660; 94760; 96365; 96367; C9113; G0257; J0360; J0456; J0696; J1644; J1953; J7620; P9016